=== PATIENT | female | born 1985 | race Caucasian/White ===

== ENCOUNTER 2018-12-03 10:37 | Emergency (ER) | payer MEDICAID ==
[~2018-12-03] VITALS: Ht 157.5 cm; Wt 78.0 kg
[~2018-12-03 10:37] MED LIST: ABILIFY5 MG; BENADRYL25 MG PO; CELEXA10 MG; CEPHALEXIN500 MG PO; IBUPROFEN800 MG PO; KETOROLAC TROME10 MG PO; MINIPRESS1 MG PO; NORCO 5-325 TA1 EACH PO; OXYCODONE-ACET1 EAC1 PO; TYLENOL325 MG PO; VENLAFAXINE H37.5 MG PO; ZANTAC300 MG PO
[2018-12-03] MEDS ORDERED: KEFLEX500 MG PO (13:14)
[2018-12-03] MEDS ORDERED: ONDANSETRON ODT8 MG PO (13:14)
== END 2018-12-03 13:25 | disposition home or self-care (01) ==
LOC: ED 10:37
DX: N10 Acute pyelonephritis (principal); F41.9 Anxiety disorder, unspecified; F32.9 Major depressive disorder, single episode, unspecified; Z87.442 Personal history of urinary calculi; F17.200 Nicotine dependence, unspecified, uncomplicated; Z88.0 Allergy status to penicillin; Z88.2 Allergy status to sulfonamides; Z79.899 Other long term (current) drug therapy; Z87.440 Personal history of urinary (tract) infections
CPT/HCPCS: 76770; 80053; 81001; 85025; 87077; 87088; 87186; 96361; 96365; 96375; 99284-25; J0696; J1885; J2405; J7030

== ENCOUNTER 2019-07-11 11:02 | Emergency (ER) | payer OTHER ==
[~2019-07-11] VITALS: Ht 157.5 cm; Wt 77.6 kg
--- OUTSIDE RECORDS SUMMARY | ~2019-07-11 | XMS | Clinical Summary ---
Demographics + + + | Address | [address] | | | [place] [address] | + + + | Home Phone | | + + + | Preferred Language | Unknown | + + + | Marital Status | | + + + | Christianity Affiliation | Unknown | + + + | Race | Unknown | + + + | Ethnic Group | Unknown | + + + Author + + + | Author | [facility] | | | and [place] | + + + | Organization | [facility] | | | and [place] | + + + | Address | Unknown | + + + | Phone | Unavailable | + + + Support + + + + + | Name | Relationship | Address | Phone | + + + + + | Jojo Clark | ECON | [place] | | | | | [address] | | + + + + + Care Team Providers + +------+ + | Care Reservations Clerk Name | Role | Phone | + +------+ + | Pcp, Prov Inactive | PCP | | + +------+ + Allergies + + + + + + | Active Allergy | Reactions | Severity | Noted | Comments | | | | | Date | | + + + + + + | Latex | Hives | Medium | 10/25/20 | | | | | | 16 | | + + + + + + | Penicillins | Anaphylaxis | High | 07/14/20 | | | | | | 16 | | + + + + + + | Sulfa Antibiotics | Hives | Medium | 07/23/20 | | | | | | 16 | | + + + + + + Medications + + + +---------+------+------+-------+ | Medication | Sig | Dispensed | Refills | Star | End | Statu | | | | | | t | Date | s | | | | | | Date | | | + + + +---------+------+------+-------+ | ibuprofen (ADVIL, | Take 400 mg by mouth | | 0 | | | Activ | | MOTRIN) 200 mg | every 6 hours as | | | | | e | | tablet | needed for Pain. | | | | | | + + + +---------+------+------+-------+ | FIBER PO | Take 2 each by mouth | | 0 | | | Activ | | | Daily. Fiber Well | | | | | e | | | Fit Gummies | | | | | | + + + +---------+------+------+-------+ | | Take 1 tablet by | 20 | 0 | 11/0 | | Activ | | HYDROcodone-acetamin | mouth every 4 hours | tablet | | 8/20 | | e | | ophen (NORCO) 5-325 | as needed. | | | 16 | | | | mg per tablet | | | | | | | + + + +---------+------+------+-------+ Active Problems + + + | Problem | Noted Date | + + + | Ureteral calculus, left | 07/14/2016 | + + + | Sepsis | 07/14/2016 | + + + | Acute cystitis without hematuria | 07/14/2016 | + + + | Acute pyelonephritis | 07/14/2016 | + + + | Hepatitis C | 07/14/2016 | + + + | Smoker | 07/14/2016 | + + + Family History + + +------+ + | Medical History | Relation | Name | Comments | + + +------+ + | Cancer | Maternal | | | | | Grandfath | | | | | er | | | + + +------+ + + +------+ + + | Relation | Name | Status | Comments | + +------+ + + | Father | | Alive | | + +------+ + + | Maternal Grandfather | | | | + +------+ + + | Mother | | Alive | | + +------+ + + Social History + + + [...] + +---------+ + | Alcohol Use | Drinks/We | oz/Week | Comments | | | ek | | | + + +---------+ + | No [...] recent travel history available. | + + Last Filed Vital Signs + + + + | Vital Sign | Reading | Time Taken | + + + + | Blood Pressure | 92/62 | 07/28/2016 1730 PST | + + + + | Pulse | 75 | 07/28/20161729 PST | + + + + | Temperature | 36.9 C (98.4 F) | 07/28/2016 1648 PST | + + + + | Respiratory Rate | 20 | 07/28/20161729 PST | + + + + | Oxygen Saturation | 98% | 07/28/20161729 PST | + + + + | Inhaled Oxygen | - | - | | Concentration | | | + + + + | Weight | 74.4 kg (164 lb) | 07/28/2016 1300 PST | + + + + | Height | 157.5 cm (5' 2") | 07/28/2016 1300 PST | + + + + | Body Mass Index | 30 | 07/28/2016 1300 PST | + + + + Plan of Treatment + + + + + | Health Maintenance | Due Date | Last Done | Comments | + + + + + | Vaccine: | | | | | Dtap/Tdap/Td (1 - | 5 | | | | Tdap) | | | | + + + + + | Cervical Cancer | | | | | Screening (Pap) | 6 | | | + + + + + | Vaccine: Influenza | | | | | (#1) | 9 | | | + + + + + Implants + +-------+--------+ +--------+--------+--------+ | Implanted | Type | Area | Manufacture | Device | Shelf | Model | | | | | r | | Expira | / | | | | | | Identi | tion | Serial | | | | | | fier | Date | / Lot | + +-------+--------+ +--------+--------+--------+ | Stent Uro Unvrs Sft 6fr 26cm | Stent | Left: | MEKHI | | 04/20/ | [id number] | | - [id number]: Qty: 1 | | Ureter | [employer] | | 2018 | / | | on 07/14/2016 by Anastasiia | | | - MEKHI | | | /[id number] | | Mike Sarabia MD | | | | | | 97 | + +-------+--------+ +--------+--------+--------+ Results Not on filefrom Last 3 Months Insurance + +--------+ +--------+ +---------+--------+ | Payer | Benefi | Subscriber | Effect | Phone | Address | Type | | | t Plan | ID | iesha | | | | | | / | | Dates | | | | | | Group | | | | | | + +--------+ +--------+ +---------+--------+ | [employer] | [employer] | [id number] | 07/14/ | [phone] | | Medica | | MEDICAID HMO | HEALTH | | 2016-P | 1 | | id | | | MDCD | | resent | | | | | | [place] | | | | | | + +--------+ +--------+ +---------+--------+ + +--------+ +--------+ + + | Guarantor Name | Accoun | Relation to | Date | Phone | Billing Address | | | t Type | Patient | of | | | | | | | | | | + +--------+ +--------+ + + | Kelsie Altman | Person | Self [birth year] | [address] | | | al/Jose | | 1985 | [phone] | [address] [place] | | | [place] | | | [address] (Home) | [address] | + +--------+ +--------+ + + Advance Directives Patient has advance care planning documents, and code status on file. For more information, please contact:[facility] [place] [address] + + + + + | Code Status | Date | Date | Comments | | | Activated | Inactivated | | + + + + + | Full Code | 07/28/2016 | 07/28/2016 | | | | 17:09 | 20:04 | | + + + + + + + + +---+ | | | | | + + + +---+ | Full Code | 07/14/2016 | 07/16/2016 | | | | 23:13 | 16:59 | | + + + +---+
--- OUTSIDE RECORDS SUMMARY | ~2019-07-11 | XMS | Clinical Summary ---
Demographics + + + | Address | [address] | | | [place] [address] | + + + | Home Phone | | + + + | Preferred Language | Unknown | + + + | Marital Status | | + + + | Bahai Affiliation | Unknown | + + + | Race | Unknown | + + + | Ethnic Group | Unknown | + + + Author + + + | Author | [facility] | | | and [place] | + + + | Organization | [facility] | | | and [place] | + + + | Address | Unknown | + + + | Phone | Unavailable | + + + Support + + + + + | Name | Relationship | Address | Phone | + + + + + | Jojo Clark | ECON | [place] | | | | | [address] | | + + + + + Care Team Providers + +------+ + | Care Paste Maker Name | Role | Phone | + [...] Left: | MEKHI | | 04/20/ | [id number] | | - [id number]: Qty: 1 | | Ureter | [employer] | | 2018 | / | | on 07/14/2016 by Anastasiia | | | - MEKHI | | | /[id number] | | Mike Sarabia MD | | [...] | [employer] | MOD[employer] | [id number] | 07/14/ | [phone] | | Medica | | MEDICAID HMO [...] [place] | | | 9 (Home) | [address] | + +--------+ +--------+ + + Advance Directives Patient has advance care planning documents, and code status on file. For more information, please contact:[facility] [place] [address] + + + + + | Code [...]
[~2019-07-11 11:02] MED LIST changes: +KEFLEX500 MG PO; +ONDANSETRON ODT8 MG PO
[2019-07-11] MEDS ORDERED: VENLAFAXINE HC150 MG PO (11:13)
[2019-07-11] MEDS ORDERED: PRAZOSIN HCL2 MG PO (11:13)
[2019-07-11] MEDS ORDERED: HYDROXYZINE HCL50 MG PO (11:13)
[2019-07-11] MEDS ORDERED: CHLORPROMAZINE50 MG PO (11:14)
[2019-07-11] MEDS ORDERED: NORCO 5-325 TA1 EACH PO (12:40)
== END 2019-07-11 13:25 | disposition home or self-care (01) ==
LOC: ED 11:02
DX: S93.402A Sprain of unspecified ligament of left ankle, initial encounter (principal); F32.9 Major depressive disorder, single episode, unspecified; F41.9 Anxiety disorder, unspecified; F17.200 Nicotine dependence, unspecified, uncomplicated; Z88.0 Allergy status to penicillin; Z88.2 Allergy status to sulfonamides; Z79.899 Other long term (current) drug therapy; X50.1XXA Overexertion from prolonged static or awkward postures, initial encounter
CPT/HCPCS: 73610; 99283

== ENCOUNTER 2019-10-06 07:00 | Emergency (ER) | payer OTHER ==
[~2019-10-06] VITALS: Ht 157.5 cm; Wt 77.6 kg
--- OUTSIDE RECORDS SUMMARY | ~2019-10-06 | XMS | Encounter Summary ---
Demographics + + + | Address | [address] | | | [place] [address] | + + + | Home Phone | | + + + | Preferred Language | Unknown | + + + | Marital Status | | + + + | Taoist Affiliation | Unknown | + + + | Race | Unknown | + + + | Ethnic Group | Unknown | + + + Author + + + | Author | [facility] | | | and [place] | + + + | Organization | [facility] | | | and [place] | + + + | Address | Unknown | + + + | Phone | Unavailable | + + + Support + + + + + | Name | Relationship | Address | Phone | + + + + + | Jojo Clark | ECON | [place] | | | | | [address] | | + + + + + Care Team Providers + +------+ + | Care Securities Clerk Name | Role | Phone | + +------+ + | Carolyn Roca | PCP | | + +------+ + Encounter Details +--------+ + + + + | Date | Type | Department | Care Team | Description | +--------+ + + + + | 07/23/ | Prep for | [facility] | Mike Laurent, | | | 2016 | Procedure | [address] | MD [address] | | | | | [place] | [place] | | | | | [phone] | [address] | | | | | [phone] | | | +--------+ + + + [...] on file | | + + + + + + + | Job Start Date | Occupation | Industry | + + + + | Not on file | Not on file | Not on file | + + + + + + + + | Travel History | Travel Start | Travel End | + + + + + + | No recent travel history available. | + + documented as of this encounter [...] Not on filedocumented as of this encounter Visit Diagnoses Not on filedocumented in this encounter"
--- OUTSIDE RECORDS SUMMARY | ~2019-10-06 | XMS | Encounter Summary ---
Demographics + + + | Address | [address] | | | [place] [address] | + + + | Home Phone | | + + + | Preferred Language | Unknown | + + + | Marital Status | | + + + | Jain Affiliation | Unknown | + + + | Race | Unknown | + + + | Ethnic Group | Unknown | + + + Author + + + | Author | [facility] | | | and [place] | + + + | Organization | [facility] | | | and [place] | + + + | Address | Unknown | + + + | Phone | Unavailable | + + + Support + + + + + | Name | Relationship | Address | Phone | + + + + + | Jojo Clark | ECON | [place] | | | | | [address] | | + + + + + Care Team Providers + +------+ + | Care Industrial Design Engineer Name | Role | Phone | + +------+ + | Carolyn Roca | PCP | | + +------+ + Reason for Referral Evaluate & Treat (Routine) +--------+ + + + + + | Status | Reason | Specialty | Diagnoses / | Referred By | Referred To | | | | | Procedures | Contact | Contact | +--------+ + + + + + | Closed | Specialty | Urology | Diagnoses | Anastasiia, | [place], | | | Services | | Left | Mike Sarabia MD | Mike Sarabia MD | | | Required | | ureteral | [address] | | | | | calculus | AVE [place] | [place] | | | | | Procedures | [place] | [place] | | | | | [place] | [address] | [address] Phone: | | | | | CYSTO/URETER | Phone: | [phone] | | | | | O/PYELOSCOPY | [phone] | Fax: | | | | | , CALCULUS | Fax: | [phone] | | | | | [place] | [phone] | | | | | | CYSTOSCOPY,I | | | | | | | NSERT | | | | | | | URETERAL | | | | | | | STENT | | | +--------+ + + + + + Reason for Visit + + + | Reason | Comments | + + + | Nephrolithiasis | | + + + Evaluate & Treat (Routine) +--------+--------+ + + + + | Status | Reason | Specialty | Diagnoses / | Referred By | Referred To | | | | | Procedures | Contact | Contact | +--------+--------+ + + + + | Closed | | Urology | Diagnoses | Abelino, | Anastasiia, | | | | | Calculus of | Carolyn Dong, | Mike Sarabia MD | | | | | ureter | TILE [employer]CH[employer]IC [employer] [address] | [address] | | | | | Unspecified | [address] | [place] | | | | | abdominal | [place], | [place], [place] | | | | | pain PRE-OP | [place] [address] | [address] Phone: | | | | | Procedures | Phone: | [phone] | | | | | OFFICE | [phone] | Fax: | | | | | VISIT | Fax: | [phone] | | | | | EXTENDED | [phone] | | +--------+--------+ + + + + Encounter Details +--------+---------+ + + + | Date | Type | Department | Care Team | Description | +--------+---------+ + + + | 07/23/ | Office | [facility] | Mike Laurent, | Left ureteral | | 2016 | Visit | [address] | MD [address] | calculus (Primary | | | | [place], [place] | [place] | Dx); Hepatitis C | | | | [address] | [address] | virus infection, | | | | [phone] | | unspecified | | | | | | chronicity; Kidney | | | | | | stones; | | | | | | Pre-operative | | | | | | clearance | +--------+---------+ + + + Social History + +-------+ [...] + + documented as of this encounter Last Filed Vital Signs + + + + + | Vital Sign | Reading | Time Taken | Comments | + + + + + | Blood Pressure | 112/68 | 07/23/2016 9:40 AM | | | | | PDT | | + + + + + | Pulse | 80 | 07/23/2016 9:40 AM | | | | | PDT | | + + + + + | Temperature | - | - | | + + + + + | Respiratory Rate | 16 | 07/23/2016 9:40 AM | | | | | PDT | | + + + + + | Oxygen Saturation | - | - | | + + + + + | Inhaled Oxygen | - | - | | | Concentration | | | | + + + + + | Weight | 74.7 kg (164 lb 11.2 | 07/23/2016 9:40 AM | | | | oz) | PDT | | + + + + + | Height | 157.5 cm (5' 2") | 07/23/2016 9:40 AM | | | | | PDT | | + + + + + | Body Mass Index | 30.12 | 07/23/2016 9:40 AM | | | | | PDT | | + + + + + documented in this encounter Functional Status + + + [...] + + documented as of this encounter Patient Instructions Patient Instructions Anna Mayorga RN - 07/23/2016 10:27 AM PDTPreoperative Instructi ons Your surgery with Dr. Mike Laurent has been scheduled for July 29, 2016 at 2:30 PM at [facility]. [facility] no later than 1:00 PM. REMEMBER: NOTHING TO EAT OR DRINK AFTER MIDNIGHT July 28, 2016. NO ASPIRIN OR ASPIRIN PRODUCTS ONE WEEK PRIOR TO SURGERY. Tylenol and Advil are OK. You will need to get the following testing done prior to surgery: CBC, CMP, URIC ACID, UA, PT/INR, PTT, LIVER PANEL Call us at [phone] with any questions. [x] Pain management booklet provided to patient. Kidney Stones A kidney stone (nephrolithiasis) begins as tiny crystals that form inside the kidney where urine is made. Eighty percent of kidney stones are calcium stones mostly calcium oxalate but also some with calcium phosphate. Other types include uric acid stones, struvite stones (from a preceding infection), and cystine stones. When the stone breaks free and begins to move down the ureter (the narrow tube joining the kidney to the bladder) it often causes sharp back and side pain, often with nausea and vomit ing. When the stone reaches the bladder, the pain stops. Once in your bladder, the kidney st one may pass through the urethra (urinary opening) while you are urinating. If your kidney stone is still inside the kidney, there is no way to predict how long it ilsa l be before it breaks free and causes any symptoms, but it usually does not cause any pain w hile it is inside the kidney. Most stones will pass on their own within a few days or up to 3-4 weeks.You may notice a red, pink, or brown color to your urine. This is normal while p assing a kidney stone. A large stone may not pass on its own and may require special procedu res to remove it. These procedures include lithotripsy, which uses ultrasound-like waves to break up the stone; and ureteroscopy, which pushes a thin, basket-like instrument through th e urethra and bladder and into the ureter to pull out the stone. Home care The following guidelines will help you care for yourself at home: 1. Drink plenty of fluids. This increases urine flow and reduces the risk of further stone formation. Healthy adults (no heart/liver/kidney disease) who have had a kidney stone should drink 12, 8-ounce glasses of fluids per day. Most of this should be water. The goal is to p roduce 1.5 to 2 quarts of almost colorless urine per 24 hours. 2. You should collect your urine in a container and then drain it through a strainer to col lect any stones or pieces of stones. Take these to your doctor to help identify your specifi c type of stone to aid in future treatment and dietary changes. 3. Try to stay as active as possible since this will help the stone pass. Don't stay in bed unless you have pain that prevents you from getting up. 4. If you develop pain, you may take ibuprofen or naproxen for pain, unless another medicin e was prescribed. [NOTE: If you have chronic liver or kidney disease or ever had a stomach u lcer or GI bleeding, talk with your doctor before using these medicines.] Prevention Each year, there is a 5% to 10% chance that a new stone will form (50% chance over the next 5 to 7 years).The risk is higher if you have a family history of kidney stones or have ce rtain chronic illnesses such as hypertension, obesity, or diabetes.However, there are life style and dietary changes that you canmake to reduce the risk of a recurrence. Most kidney stones are made of calcium. The following is advice for preventing a recurrence of calcium stones. If you don t know the type of stone you have, follow this advice unt il the cause of your stone is determined. Things that help: The most important thing you can do is to drink plenty of fluids each day, as described above (#1). Eat more fruits and vegetables (especially those high in potassium). Eat foods high in natural citrate like fruit and fruit juices (using low sugar). Low calcium contributes to the formation of calcium type kidney stones. Eat a normal shekhar cium diet and speak with your doctor if you are taking calcium supplements. It may be detrim ental to reduce your calcium intake. New research shows that eating calcium-rich and oxalate -rich foods together lowers your risk of stones by binding the minerals in the stomach and i ntestines before they can reach the kidneys. Limit salt intake to 2 grams (1 teaspoon) per day. Use limited amounts when cooking, and don t add salt at the table. Processed and canned foods are usually high in salt. Spinach, rhubarb, peanuts, cashews and almonds, grapefruit and grapefruit juice are all high oxalate foods and should be reduced, or eaten with calcium rich foods (dairy, dark leaf y greens, soy products, and calcium enriched foods, among others). Reducing the amount of animal meat in your diet may lower your risk of uric acid stones. Avoid excess sugar (sucrose) and fructose (sweetener in many soft drinks) in your diet. Avoid use of Vitamin C supplements. Drink lots of water to keep urine dilute at all times. Ideally, you should drink enough water to produce 2 liters of urine every day. A low sodium, low fat, low oxalate, low animal protein diet is helpful. Also increase ci trate intake, as citrate is a stone inhibitor. Citrate can be found in carlota, oranges, pine apple, and grapefruit. Ask your primary care provider if grapefruit consumption is OK for yo u, as this particular citrus fruit may interact with some medications. Magnesiuim is also a stone inhibitor, and may help reduce the risks of kidney stones. Follow-up care Follow up with your doctor as advised by our staff. Talk to your doctor about urine and blo od tests to find out the cause of your stone. If you had an X-ray, CT scan, or other diagnostic test, it will be reviewed by a specialist . You will be notified of any new findings that may affect your care. When to seek medical care Get prompt medical attention if any of the following occur: Severe sharp back or side pain Repeated vomiting or unable to keep down fluids Weakness, dizziness, or fainting Fever of 100.4F (38C) or higher, or as directed by your health care provider Blood (pink or red color) in your urine Foul smelling or cloudy urine Unable to pass urine for 8 hours or increasing bladder pressure [id number] [employer]. [address] [place] [address]. All righ ts reserved. This information is not intended as a substitute for professional medical care. Always follow your healthcare professional's instructions. documented in this encounter Progress Notes Mike Laurent MD - 07/23/2016 9:44 AM PDTFormatting of this note might be different fro m the original. Kelsie is a 31 y.o. female patient of [facility] being seen today for follow up for kidney stones. CC: 3-4 mm distal left ureteral calculus Kelsie presented to the emergency department at [facility] on 07/14/2016 with a 3 to four-day history of left back and flank pain associated with fevers to 102. CT imagin g at [facility] suggested a "distal left ureteral 3-4 mm stone with mild left hydronephro sis, mild pyelosinus and periureteral edema." She appeared septic at [facility] , so she was transferred to [facility] on 07/14/2016 where she under went urgent left ureteral stent placement on 07/14/2016. She was treated with IV antibiotic therapy, and she had near immediate pain relief with julia nt placement. Urine culture grew E. coli, sensitive to quinolones, resistant to Septra, tet racycline, and ampicillin. She will finish her outpatient Cipro antibiotic today. She denies having any recurrence of fevers. She states that overall she still feels "reall y good" except that she does notice left back and flank discomfort when voiding. She's had 2 episodes of hematuria. She denies any dysuria. She denies any fever or chills or nausea or vomiting. She denies any cough or chest pain o r shortness breath or hemoptysis. She denies any recent cold or flulike illness. She denies any hematochezia or melena or co nstipation or diarrhea. She denies any vaginal drainage or discharge or bleeding. She denies any bleeding diasthes is. She denies any headache or visual changes. Other than her flank pain with voiding, 10 point review of systems is negative. Over 30 minute encounter with Kelsie and her mother today, over 50% of this time spent in cou nseling regarding treatment of her nephrolithiasis and ureterolithiasis, and dietary recomme ndations to reduce her risk of stone disease. Past Medical History She has a past medical history of Kidney calculi; Anxiety; PTSD (post-traumatic stress diso rder); Hepatitis C; Anxiety and depression; and History of chlamydia. Past Surgical History She has past surgical history that includes hernia repair (2014); Cholecystectomy (2006); T ubal ligation; and Cystoscopy Insertion/Removal Stent/Stone (Left, 07/14/2016). Family History: Her family history includes Cancer in her maternal grandfather. Social History: She reports that she has been smoking. She does not have any smokeless tobacco history on file. She reports that she uses illicit drugs (Marijuana). She reports that she does not dri nk alcohol. Allergies Allergen Reactions Penicillins Anaphylaxis Latex Hives Medications: Outpatient Encounter Prescriptions as of 07/23/2016 Medication Sig Dispense Refill [DISCONTINUED] ciprofloxacin (CIPRO) 250 mg tablet Take 1 tablet by mouth 2 times daily for 7 days. 14 tablet 0 [DISCONTINUED] HYDROcodone-acetaminophen (NORCO) 5-325 mg per tablet Take 1 tablet by m outh every 6 hours as needed for Pain (Pain). 15 tablet 0 No facility-administered encounter medications on file as of 07/23/2016. REVIEW OF SYSTEMS: [x] All Negative Constitutional Symptoms: []Fever []Chills []Headache []Change in appetite [] Change in weight [] Change in energy []Other: Neurological: []Tremors []Dizzy Spells []Numbness/Tingling []Seizures []Other: Endocrine: []Excessive thirst []Too hot [] Too cold []Tired/Sluggish Gastrointestinal: []Abdominal pain []Nausea/vomiting []Indigestion/heartburn []Change in stool size [] Myrick e in stool shape [] Change in stool color []Pain with swallowing []Other: Cardiovascular: []Chest Pain []Rapid heart rate []High blood pressure []Other: Integumentary: []Skin rash []Boils []Persistent itch []Other: Musculoskeletal: []Neck Pain []Joint swelling/pain []Back pain []Bone pain []Other: Respiratory: []Wheezing []Frequent cough []Shortness of breath []Other: Hematologic/Lymphatic: []Swollen glands []Blood clotting problems []Prior blood transfusions []Other: Psychologic: Are you generally satisfied with your life? no Do you feel severely depressed? no Have you considered suicide? no Other: Habits: Do you smoke? yes [x] Yes [] No Patient advised to follow up with PCP regarding positive review of syste ms. PHYSICAL EXAM Vitals: BP 112/68 mmHg | Pulse 80 | Resp 16 | Ht 1.575 m (5' 2") | Wt 74.707 kg (164 lb 11. 2 oz) | BMI 30.12 kg/m2 | LMP 06/16/2016 (Approximate) General: Awake, alert, in no acute distress. Speech is fluent. Appears to be stated age. Overweight. Cheerful. Neck: Supple; no lymphadenopathy. HENT: Atraumatic, external ears normal, nose normal, oropharynx moist, no pharyngeal exudat es. Hair dyed blue-green in color. Lungs: Normal respiratory effort, no wheezing, no stridor, no tachypnea. Clear to auscult ation bilaterally. Heart: Normal rate, normal rhythm, no murmurs, no gallops, no rubs. Chest: No rib or bony tenderness. Back: Mild left CVA tenderness. Abdomen: Soft, nontender, nondistended, no hepatosplenomegaly. No masses. Umbilical pierc ing present. No guarding; benign. Bladder nondistended. Mild left flank tenderness. Extremities: Non-edematous. Hips and long bones nontender to fist percussion. Neuro: Awake, alert, oriented x3. Normal station and gait. Psychiatric: Mood and affect are normal. Normal judgment. Skin: Warm and dry, no erythematous rash. DIAGNOSTIC DATA: Lab Results Component Value Date CREA 0.69 07/15/2016 BUN 12 07/15/2016 NA 137 07/15/2016 K 3.8 07/15/2016 CL 109 07/15/2016 CO2 22* 07/15/2016 Lab Results Component Value Date WBC 5.4 07/15/2016 HGB 12.8 07/15/2016 HCT 37.2 07/15/2016 MCV 87.0 07/15/2016 PLT 213 07/15/2016 Lab Results Component Value Date CALCIUM 8.6 07/15/2016 SUPINE ABDOMEN: 07/23/2016 8:27 AM CLINICAL HISTORY: Left ureteral calculus COMPARISON: CT abdomen 07/14/2016 FINDINGS: Left ureteral stent is present extending from left renal pelvis to bladder. No high density foci over the left kidney or course of the stent. No right-sided stones suggested. Small phleboliths on the right side of the pelvis. Stable linear metallic density projecting over the upper sacrum, previously shown to be in the anterior abdominal skin. Cholecystectomy clips are also noted. Intestinal gas and stool pattern is normal. No bony abnormalities. IMPRESSION - Satisfactory position left ureteral stent. No radiopaque renal collecting system stones. Dictated and Signed by: Jared Roca MD Electronically signed: 07/23/2016 (Images personally reviewed with the patient today) IMPRESSION: 1. 3-4 mm distal left ureteral calculus. 2. Recent urosepsis. Resolved. 3. Mild left hydronephrosis. 4. 2-3 mm left renal calculus. PLAN: I showed Kelsie her x-ray images. I told her that her distal left ureteral calculus is diffi cult to discern on her CT, and I can't be 100% certain that she has a stone, since I can't v isualize it on her current KUB. However, we also discussed that a uric acid stone would not be visible on plain x-ray imaging. Nevertheless, I told her that she needs to undergo uret eroscopy to remove any remaining stone material in her left ureter. I gave Kelsie a pamphlet describing kidney stones and the various treatment options available , which we reviewed together. We discussed performing ESWL (not available in the near futur e) vs ureteroscopy with laser lithotripsy vs PCNL (not recommended) vs seeking a second opin ion vs doing nothing. After a lengthy discussion, she elects to proceed with left ureteroscopy with stone extract ion. The risks, benefits, and alternatives of cystoscopy, and left ureteroscopy with stone extra ction, and possible left ureteral stent replacement are discussed with Kelsie in detail. I t old her that this procedure may not render her stone free, necessitating additional procedur es in the future. We discussed that if her stone is too big to extract, she may need to und ergo laser lithotripsy. Risks are to include, but are not limited to bleeding, pain, infection, failure of the proc edure, inability to retrieve or remove or fragment the stone, failure to diagnose, ureteral injury, ureteral perforation, ureteral avulsion with its severe sequelae of damage to the ki dney or need for subsequent surgical corrective procedures, potential need for additional pr ocedures, inherent irritability and discomfort associated with a ureteral stent, inherent ri sks of any surgical procedure and anesthesia including DVT, PE, UT, CVA, and even . Kelsie indicates her understanding, and indicates a desire to proceed as outlined. No guaran tees are given or implied. A surgical date is chosen. Kelsie is given appropriate written and verbal preoperative instru ctions. Elements of a kidney stone risk reduction diet are reviewed with Kelsie in detail. I recomme nded that she increase water intake to target a urinary output of 2 L per day. I gave Kelsie a list of foods containing oxalates, and I recommended a low oxalate diet, with instructions to minimize oxalate consumption to 40-50 mg per day. I also recommended a low sodium, low animal protein, low fat, high citrate diet. We discussed that her left renal stone will need monitoring with her PCP. It is small enou gh that I cannot visualize it on her KUB today. Kelsie is instructed to resume her usual and customary care with her primary care provider. I asked Kelsie to notify me if there were any difficulties voiding, or UTI symptoms, or flank pain, or for any questions or concerns whatsoever. This document was generated in part using voice recognition software. Although I have atte mpted to edit the content, I have not thoroughly proofread this note, and first line supervisor erro rs may occur. CC: [facility] documented in this en counter Plan of Treatment + +------+--------+ + + | Name | Type | Priori | Associated Diagnoses | Order Schedule | | | | ty | | | + +------+--------+ + + | CBC with | Lab | Routin | Left ureteral | 1 Occurrences | | Differential | | e | calculus | starting 07/23/2016 | | | | | | until 07/23/2017 | + +------+--------+ + + | Comprehensive | Lab | Routin | Left ureteral | 1 Occurrences | | Metabolic Panel | | e | calculus | starting 07/23/2016 | | | | | | until 07/24/2017 | + +------+--------+ + + | Uric Acid | Lab | Routin | Left ureteral | 1 Occurrences | | | | e | calculus | starting 07/23/2016 | | | | | | until 07/23/2017 | + +------+--------+ + + | Urinalysis, Reflex | Lab | Routin | Left ureteral | 1 Occurrences | | Microscopic and/or | | e | calculus | starting 07/23/2016 | | Culture | | | | until 07/23/2017 | + +------+--------+ + + | Protime INR | Lab | Routin | Pre-operative | 1 Occurrences | | | | e | clearance | starting 07/23/2016 | | | | | | until 07/23/2017 | + +------+--------+ + + | PTT | Lab | Routin | Pre-operative | 1 Occurrences | | | | e | clearance | starting 07/23/2016 | | | | | | until 07/23/2017 | + +------+--------+ + + | Hepatic Function | Lab | Routin | Hepatitis C virus | 1 Occurrences | | Panel | | e | infection, | starting 07/23/2016 | | | | | unspecified | until 07/23/2017 | | | | | chronicity | | + +------+--------+ + + + + +--------+ + + | Name | Type | Priori | Associated Diagnoses | Order Schedule | | | | ty | | | + + +--------+ + + | Ambulatory referral | Outpatient | Routin | Left ureteral | Expected: | | to Urology | Referral | e | calculus | 07/29/2016, Expires: | | | | | | 08/05/2016 | + + +--------+ + + documented as of this encounter Procedures + +--------+ + + + | Procedure Name | Priori | Date/Time | Associated Diagnosis | Comments | | | ty | | | | + +--------+ + + + | LABS - EXTERNAL SCAN | | 07/27/2016 | | Results for this | | | | 12:00 AM | | procedure are in the | | | | PST | | results section. | + +--------+ + + + documented in this encounter Results LABS - EXTERNAL SCAN (07/27/2016 12:00 AM PST) + + + | Narrative | Performed At | + + + | Ordered by an | | | unspecified provider. | | + + + documented in this encounter Visit Diagnoses + + | Diagnosis | + + | Left ureteral calculus - Primary Calculus of ureter | + + | Hepatitis C virus infection, unspecified chronicity | + + | Kidney stones Calculus of kidney | + + | Pre-operative clearance Preoperative examination, unspecified | + + documented in this encounter
--- OUTSIDE RECORDS SUMMARY | ~2019-10-06 | XMS | Encounter Summary ---
Demographics + + + | Address | [address] | | | [place] [address] | + + + | Home Phone | | + + + | Preferred Language | Unknown | + + + | Marital Status | | + + + | Jew Affiliation | Unknown | + + + | Race | Unknown | + + + | Ethnic Group | Unknown | + + + Author + + + | Author | [facility] | | | and [place] | + + + | Organization | [facility] | | | and [place] | + + + | Address | Unknown | + + + | Phone | Unavailable | + + + Support + + + + + | Name | Relationship | Address | Phone | + + + + + | Jojo Clark | [place] | [place] | | | | | [address] | | + + + + + Care Team Providers + +------+ + | Care Group Leader [employer] Name | Role | Phone | + +------+ + | No, Physician | PCP | Unavailable | + +------+ + Reason for Visit + + + | Reason | Comments | + + + | Flank Pain | | + + + Auth/Cert +--------+--------+ + + + + | Status | Reason | Specialty | Diagnoses / | Referred By | Referred To | | | | | Procedures | Contact | Contact | +--------+--------+ + + + + | | | | Diagnoses | | | | | | | | | | | | | | Ureterolithi | | | | | | | asis Acute | | | | | | | abdominal | | | | | | | pain in left | | | | | | | flank | | | | | | | Urinary | | | | | | | tract | | | | | | | infection, | | | | | | | site | | | | | | | unspecified | | | | | | | Left | | | | | | | ureteral | | | | | | | stone | | | | | | | Intractable | | | | | | | left upper | | | | | | | quadrant | | | | | | | abdominal | | | | | | | pain | | | | | | | Left | | | | | | | ureteral | | | | | | | stone | | | | | | | [N20.1], | | | | | | | Urinary | | | | | | | tract | | | | | | | infection, | | | | | | | site | | | | | | | unspecified | | | | | | | [N39.0] | | | | | | | Procedures | | | | | | | TX | | | | | | | CYSTOSCOPY,I | | | | | | | NSERT | | | | | | | URETERAL | | | | | | | STENT | | | | | | | CYSTOSCOPY | | | | | | | PLACEMENT | | | | | | | URETERAL | | | | | | | STENT | | | +--------+--------+ + + + + Encounter Details +--------+ + + + + | Date | Type | Department | Care Team | Description | +--------+ + + + + | 07/14/ | Hospital | [facility] | Bud, | Acute abdominal pain | | 2016 - | Encounter | [facility] SUR[facility] | Scott Sarabia MD [address] | in left flank | | | | [address] [place] | [address] [place] | (Primary Dx); | | 07/16/ | | [place] [address] | [place] [address] | Ureterolithiasis; | | 2015 | | [phone] | [phone] | Intractable left | | | | | | upper quadrant | | | | | Blake Moreno S, | abdominal pain; | | | | | [address] | Acute | | | | | [place], [place] | pyelonephritis; | | | | | [id number] [address] Laurent | Sepsis, due to | | | | | MD [place] [address] | unspecified organism | | | | | [address] [place], [place] | ([facility]); Ureteral | | | | | [id number] | calculus, left | | | | | | | +--------+ + + + [...] + + + | Blood Pressure | 111/62 | 07/16/2016 7:47 AM | | | | | PDT | | + + + + + | Pulse | 56 | 07/16/2016 7:47 AM | | | | | PDT | | + + + + + | Temperature | 35.9 C (96.6 F) | 07/16/2016 7:47 AM | | | | | PDT | | + + + + + | Respiratory Rate | 16 | 07/16/2016 7:47 AM | | | | | PDT | | + + + + + | Oxygen Saturation | 97% | 07/16/2016 7:47 AM | | | | | PDT | | + + + + + | Inhaled Oxygen | - | - | | | Concentration | | | | + + + + + | Weight | 77.6 kg (171 lb) | 07/14/2016 6:16 PM | | | | | PDT | | + + + + + | Height | 157.5 cm (5' 2") | 07/14/2016 6:16 PM | | | | | PDT | | + + + + + | Body Mass Index | 31.28 | 07/14/2016 6:16 PM | | | | | PDT | [...] + + documented as of this encounter Discharge Summaries Mike Laurent MD - 07/16/2016 8:13 AM PDTFormatting of this note might be different fro m the original. [facility] Urology Discharge Summary Patient Name: Kelsie Altman Patient : 1985 Admitting Physician: Mike Laurent MD PCP: No Physician on file Discharging Physician: Mike Laurent Consultants: None Date of Admission: 07/14/2016 Date of Discharge: 07/16/2016 Primary Discharge Dx: Sepsis Secondary Discharge Dx(s): Patient Active Problem List Diagnosis Ureteral calculus, left Sepsis Acute cystitis without hematuria Acute pyelonephritis Hepatitis C Smoker Procedures: Left ureteral stent placement 07/14/2016 Hospital Course: Kelsie was taken urgently to the operating room on 07/14/2016 for stent placement for an obst ructing left ureteral calculus associated with urinary tract infection. She had marked improvement in symptoms by postop day #1. Additionally, by postop day #1, s he became afebrile with normalization of vital signs. She continued with intravenous Cipro. Urine cultures returned demonstrating E. coli, sensi tive to quinolones. By postop day #2, she had remained afebrile for greater than 24 hours, and was having no re nal colic, and was tolerating a regular diet well, and was deemed stable for discharge home. Condition on Discharge: Stable Discharge Medications: Discharge Medications New Medications Details ciprofloxacin 250 mg tablet Take 1 tablet by mouth 2 times daily for 7 days. aka: CIPRO HYDROcodone-acetaminophen 5-325 mg per tablet Take 1 tablet by mouth every 6 hours as needed for Pain (Pain). aka: NORCO Medications Reconciled upon Discharge are: Discharge Medications New Medications Details ciprofloxacin 250 mg tablet Take 1 tablet by mouth 2 times daily for 7 days. aka: CIPRO HYDROcodone-acetaminophen 5-325 mg per tablet Take 1 tablet by mouth every 6 hours as needed for Pain (Pain). aka: NORCO There is no immunization history on file for this patient. Follow-Up: 1. Urology Dr. Laurent in 1 weeks. 2. Encouraged to establish with PCP Instructions: 1. Diet: Regular 2. Activity: As tolerated Code Status/Advance Directive (Pertinent discussions/declarations): Full Code documented in this en counter Discharge Instructions Instructions Mike Laurent MD - 07/16/2016DISCHARGE INSTRUCTIONS URINARY TRACT SURGERY including: Ureteral stent placement Activity: As tolerated. Walk frequently as tolerated. Gradually return to normal activities as t olerated. Best to avoid intercourse for 5-7 days. Preferable to avoid heavy lifting or straining for 5-7 days. Diet: Clear liquids until nausea passes, then return to normal diet as tolerated. Fluids are encouraged to help flush blood out of your urinary tract. Drink 8 glasses of fluid a day until urine is free of blood. Pain pills can cause constipation. Use a laxative of your choice if necessary. Pain and Comfort: Bloody urine is common and will generally clear up within several days, but can last janet jere. Slight burning on urination may occur. Urinary urgency and frequency is also not unusua l after this type of surgery. Use pain medication as directed. Take ibuprofen for less severe pain. Additional Instructions: You may shower at any time. Follow up: Call Dr Laurent's office ([phone]) to set up your follow-up appointment or other arr angements as appropriate. Call YOUR UROLOGIST'S office for: Unremitting very heavy bright red bleeding and/or large volume of clots when urinating, that is worsening despite rest and pushing oral fluids. Inability to urinate. Elevated fever over 101 F. Frequent unremitting nausea/vomiting. Severe pain not relieved by rest or prescribed pain medication. If you are unable to reach your doctor at the above number, call the answering service at (after hours and weekends). If you have received sedation / an anesthetic today, DO NOT drive a vehicle, use alcoholic beverages, sign legal documents, take public transportation alone or care for a dependent pe rson for the next 24 hours. Also, you should not drive until you are off of all narcotic pa in medications and can move your legs easily without pain. Kidney Stones A kidney stone (nephrolithiasis) begins [...] for 8 hours or increasing bladder pressure [id number] [employer]. [address] [place] [address]. All righ ts reserved. This information is not intended as a substitute for professional medical care. Always follow your healthcare professional's instructions. documented in this encounter Medications at Time of Discharge + + + +---------+ + + | Medication | Sig | Dispensed | Refills | Start | End Date | | | | | | Date | | + + + +---------+ + + | ciprofloxacin | Take 1 tablet by | 14 | 0 | 07/16/20 | | | (CIPRO) 250 mg | mouth 2 times daily | tablet | | 16 | 6 | | tablet | for 7 days. | | | | | + + + +---------+ + + | | Take 1 tablet by | 15 | 0 | 07/16/20 | | | HYDROcodone-acetamin | mouth every 6 hours | tablet | | 16 | 6 | | ophen (NORCO) 5-325 | as needed for Pain | | | | | | mg per tablet | (Pain). | | | | | + + + +---------+ + + documented as of this encounter Progress Notes Mike Laurent MD - 07/16/2016 7:58 AM PDTFormatting of this note might be different fro m the original. Urology follow up S: No pain. Voiding well. Wants to go home. No N/V. No renal colic. No SOB. No dizzi ness or lightheadedness. BP 111/62 mmHg | Pulse 56 | Temp(Src) 35.9 C (96.6 F) (Oral) | Resp 16 | Ht 1.575 m (5' 2") | Wt 77.565 kg (171 lb) | BMI 31.27 kg/m2 | SpO2 97% | LMP 06/16/2016 (Approximate) | B reastfeeding? No General: Awake, alert, in no acute distress. Speech is fluent. Cheerful, smiles readily. Lungs: Normal respiratory effort, no wheezing, no stridor, no tachypnea. Back: No CVA tenderness. Abdomen: Soft, nontender, nondistended. No guarding; benign. Bladder nondistended. Extremities: Non-edematous. Warm, perfused. Neuro: Awake, alert, oriented x3. Psychiatric: Mood and affect are normal. Normal judgment. Skin: Warm and dry, no erythematous rash. DIAGNOSTIC DATA: Lab Results Component Value Date CREA 0.69 07/15/2016 BUN 12 07/15/2016 NA 137 07/15/2016 K 3.8 07/15/2016 CL 109 07/15/2016 CO2 22* 07/15/2016 Lab Results Component Value Date WBC 5.4 07/15/2016 HGB 12.8 07/15/2016 HCT 37.2 07/15/2016 MCV 87.0 07/15/2016 PLT 213 07/15/2016 Urine culture - e.coli, nearly manriquez-sensitive. Resistant to Septra, TCN, and ampicillin. S ensitive to quinolones, cefazolin, nitrofurantoin, et al. Impression: POD # 2 - doing well Fever - resolved Sepsis - resolved Pyelonephritis Renal colic - resolved Plan: Discharge home Discharge instructions given RTC precautions discussed. Reminded patient that stent must be removed. Instructed to follow up in about a week to arrange for stone and stent removal Dietary measures to reduce risk of stones reviewed. Will need left ureteroscopy with stone extraction in the near future. Alice Branham RRT - 07/15/2016 6:16 PM PDTPt is a little unmotivated to move around Mike Rausch MD - 07/15/2016 8:01 AM PDT . Urology follow up S: Feels much better. Still having some discomfort, but pain markedly improved. No other complaints. BP 103/56 mmHg | Pulse 77 | Temp(Src) 36.2 C (97.2 F) (Oral) | Resp 17 | Ht 1.575 m (5' 2") | Wt 77.565 kg (171 lb) | BMI 31.27 kg/m2 | SpO2 96% | LMP 06/16/2016 (Approximate) | B reastfeeding? No General: Awake, alert, in no acute distress. Speech is fluent. Appears to be comfortable. Lungs: Normal respiratory effort, no wheezing, no stridor, no tachypnea. Back: Mild left CVA tenderness. Abdomen: Soft, nondistended, no hepatosplenomegaly, mild left flank tenderness. No masses. No guarding; benign. Bladder nondistended. Extremities: Non-edematous. Warm, perfused. Neuro: Awake, alert, oriented x3. Psychiatric: Mood and affect are normal. Normal judgment. Skin: Warm and dry, no erythematous rash. DIAGNOSTIC DATA: Lab Results Component Value Date CREA 0.69 07/15/2016 BUN 12 07/15/2016 NA 137 07/15/2016 K 3.8 07/15/2016 CL 109 07/15/2016 CO2 22* 07/15/2016 Lab Results Component Value Date WBC 5.4 07/15/2016 HGB 12.8 07/15/2016 HCT 37.2 07/15/2016 MCV 87.0 07/15/2016 PLT 213 07/15/2016 Impression: POD # 1 - stable Sepsis - improving and stable Renal colic - much improved UTI/pyelonephritis Fever Plan: Continue IV fluids Continue IV antibiotics Analgesics documented in this en counter Plan of Treatment Not on filedocumented as of this encounter Procedures + +--------+ + + + | Procedure Name | Priori | Date/Time | Associated Diagnosis | Comments | | | ty | | | | + +--------+ + + + | CT ABDOMEN PELVIS WO | Routin | 09/13/2016 | | Results for this | | CONTRAST | e | 2:55 PM | | procedure are in the | | | | PST | | results section. | + +--------+ + + + | CBC WITH | Routin | 07/15/2016 | | Results for this | | DIFFERENTIAL | e | 6:09 AM | | procedure are in the | | | | PDT | | results section. | + +--------+ + + + | BASIC METABOLIC | Routin | 07/15/2016 | | Results for this | | PANEL | e | 6:09 AM | | procedure are in the | | | | PDT | | results section. | + +--------+ + + + | CYSTOSCOPY PLACEMENT | | 07/14/2016 | Left ureteral | | | URETERAL STENT | | 9:19 PM | stone Urinary tract | | | | | PDT | infection, site | | | | | | unspecified | | + +--------+ + + + +---+--------+ | | | | | Specia | | | l | | | Needs | | | C-Arm | +---+--------+ + +--------+ +---+ + | IMAGING REPORT - | | 07/14/2016 | | Results for this | | EXTERNAL SCAN | | 12:00 AM | | procedure are in the | | | | PDT | | results section. | + +--------+ +---+ + | LABS - EXTERNAL SCAN | | 07/14/2016 | | Results for this | | | | 12:00 AM | | procedure are in the | | | | PDT | | results section. | + +--------+ +---+ + | LABS - EXTERNAL SCAN | | 07/14/2016 | | Results for this | | | | 12:00 AM | | procedure are in the | | | | PDT | | results section. | + +--------+ +---+ + | CT ABDOMEN PELVIS WO | Routin | 08/23/2015 | | Results for this | | CONTRAST | e | 6:35 AM | | procedure are in the | | | | PST | | results section. | + +--------+ +---+ + documented in this encounter Results CT Abdomen Pelvis wo Contrast (09/13/2016 2:55 PM PST) + + | Specimen | + + | | + + + + + | Narrative | Performed At | + + + | External films for comparison only - no result from [facility]. | [facility] | + + + + +---------+ + + | Performing | Address | City/State/Zipcode | Phone Number | | Organization | | | | + +---------+ + + | [facility] | | | | + +---------+ + + CBC with Differential (07/15/2016 6:09 AM PDT) + + + + + + | Component | Value | Ref Range | Performed | Pathologist | | | | | At | Signature | + + + + + + | WBC | 5.4 | 4.0 - 11.0 K/uL | [facility] | | | | | | [facility] | | | | [facility] | | | [facility] | | | | | | [facility] | | + + + + + + | RBC | 4.28 | 3.70 - 5.20 | [facility] | | | | | M/uL | [facility] | | | | | | [facility] | | | | | | [facility] - | | | | | | [facility]ATORY | | + + + + + + | Hemoglobin | 12.8 | 11.5 - 16.0 | [facility] | | | | | g/dL | [facility] | | | | | | [facility] | | | | | [facility] - | | | | | | [facility]ATORY | | + + + + + + | Hematocrit | 37.2 | 34.0 - 47.0 % | [facility] | | | | | | [facility] | | [facility] | [facility] | | | | [facility] | | | | | | [facility] | | + + + + + + | MCV | 87.0 | 83.0 - 101.0 fL | [facility] | | | | | | [facility] | | | | | [facility] | | | | [facility] | | | | | | [facility] | | + + + + + + | MCH | 29.8 | 28.0 - 35.0 pg | [facility] | | | | | | [facility] | | | | | | [facility] | | | | | [facility] - | | | | | | [facility] | | + + + + + + | MCHC | 34.3 | 32.0 - 36.0 | [facility] | | | | | g/dL | [facility] | | | | | | [facility] | | | | [facility] - | | | | | | [facility]ATORY | | + + + + + + | RDW-CV | 13.6 | <15.0 % | [facility] | | | | | | [facility] | | | [facility] | | | | [facility] - | | | | | | [facility]ATORY | | + + + + + + | Platelet | 213 | 140 - 440 K/uL | [facility] | | | Count | | | [facility] | | | | | | [facility] | | | | [facility] - | | | | | | [facility] | | + + + + + + | MPV | 7.4 | fL | [facility] | | | | | | [facility] | | | | | [facility] | | | | [facility] - | | | | | | [facility] | | + + + + + + | % | 88.4 (H) | 45.0 - 82.0 % | [facility] | | | Neutrophils | | | [facility] | | | | | | [facility] | | | | | | [facility] - | | | | | | LAB[facility]ATORY | | + + + + + + | % | 7.9 (L) | 20.0 - 45.0 % | [facility] | | | Lymphocytes | | | [facility] | | | | | | [facility] | | | | | [facility] - | | | | | | [facility]ATORY | | + + + + + + | % Monocytes | 3.1 (L) | 4.0 - 12.0 % | [facility] | | | | | | [facility] | | | | | | [facility] | | | | | [facility] - | | | | | | [facility] | | + + + + + + | % | 0.4 | 0.0 - 5.0 % | [facility] | | | Eosinophils | | | [facility] | | | | | | [facility] | | | | | [facility] - | | | | | | LAB[facility]ATORY | | + + + + + + | % Basophils | 0.2 | 0.0 - 1.0 % | [facility] | | | | | | [facility] | [facility] | [facility] | | | | | | [facility] - | | | | | | LAB[facility]ATORY | | + + + + + + | Absolute | 4.70 | 1.80 - 8.50 | [facility] | | | Neutrophils | | K/uL | [facility] | | | | | [facility] | | | | | | [facility] - | | | | | | LABORATORY | | + + + + + + | Absolute | 0.40 (L) | 0.60 - 3.20 | [facility] | | | Lymphocytes | | K/uL | [facility] | | | | | | [facility] | | | | | | [facility] - | | | | | | LABORATORY | | + + + + + + | Absolute | 0.20 | 0.00 - 1.00 | [facility] | | | Monocytes | | K/uL | [facility] | | | | | | [facility] | | | | | | [facility] - | | | | | | [facility]ATORY | | + + + + + + | Absolute | 0.00 | 0.00 - 0.40 | [facility] | | | Eosinophils | | K/uL | [facility] | | | | | | [facility] | | | | | | [facility] - | | | | | | [facility]ATORY | | + + + + + + | Absolute | 0.00 | 0.00 - 0.10 | [facility] | | | Basophils | | K/uL | [facility] | | | | | | [facility] | | | | | | [facility] - | | | | | | [facility]ATORY | | + + + + + + + + | Specimen | + + | Blood | + + + + + + + | Performing | Address | City/State/Zipcode | Phone Number | | Organization | | | | + + + + + | [facility] | [address] | [place] | [phone] | | [facility] | | [address] | | | - LABORATORY | | | | + + + + + Basic Metabolic Panel (07/15/2016 6:09 AM PDT) + + + + + + | Component | Value | Ref Range | Performed | Pathologist | | | | | At | Signature | + + + + + + | Na | 137 | 136 - 149 | [facility] | | | | | mmol/L | [facility] | | | | | | [facility] | | | | | [facility] - | | | | | | LAB[facility]ATORY | | + + + + + + | K | 3.8 | 3.5 - 5.1 | [facility] | | | | | mmol/L | [facility] | | | | | | [facility] | | | | | | [facility] - | | | | | | LAB[facility]ATORY | | + + + + + + | Cl | 109 | 98 - 109 mmol/L | [facility] | | | | | | [facility] | | | | | | [facility] | | | | | | [facility] - | | | | | | LAB[facility]ATORY | | + + + + + + | CO2 | 22 (L) | 24 - 31 mmol/L | [facility] | | | | | | [facility] | | | | | [facility] | | | | | [facility] - | | | | | | LAB[facility]ATORY | | + + + + + + | Anion Gap | 6 | 3 - 16 mmol/L | [facility] | | | | | | [facility] | | | | | | [facility] | | | | | | [facility] - | | | | | | LAB[facility]ATORY | | + + + + + + | Glucose | 181 (H) | 70 - 109 mg/dL | [facility] | | | | | | [facility] | | | | | | [facility] | | [facility] | | | [facility] - | | | | | | LAB[facility]ATORY | | + + + + + + | BUN | 12 | 7 - 18 mg/dL | [facility] | | | | | | [facility] | | | | | [facility] | | | | | [facility] - | | | | | | LAB[facility]ATORY | | + + + + + + | Creatinine | 0.69 | 0.60 - 1.30 | [facility] | | | | | mg/dL | [facility] | | | | | | [facility] | | | | | | [facility] - | | | | | | LAB[facility]ATORY | | + + + + + + | eGFR if not | >60Comment: GLOMERULAR | >=60 | [facility] | | | | FILTRATION | mL/min/1.73m2 | [facility] | | | [place] | RATE,ESTIMATED | | MEDICAL | | | | mL/min/1.38c5Dyxn than | | CENTER - | | | | 60 Chronic kidney | | LABORATORY | | | | disease,if found over a | | | | | | 3-month period.Less than | | | | | | 15 Kidney failureFor | | | | | | | | | | | | Americans,multiply the | | | | | | calculated GFR by 1.21. | | | | | | | | | | + + + + + + | Calcium | 8.6 | 8.3 - 10.5 | [facility] | | | | | mg/dL | [facility] | | | | | | [facility] | | | | | | CENTER - | | | | | | LABORATORY | | + + + + + + | BUN/Creatin | 17.4 | | [facility] | | | ine Ratio | | | [facility] | | | | | | [facility] | | | | | | CENTER - | | | | | | LABORATORY | | + + + + + + + + | Specimen | + + | Blood | + + + + + + + | Performing | Address | City/State/Zipcode | Phone Number | | Organization | | | | + + + + + | [facility] | [address] | [place] | [phone] | | [facility] | | [address] | | | - LABORATORY | | | | + + + + + LABS - EXTERNAL SCAN (07/14/2016 12:00 AM PDT) + + + | Narrative | Performed At | + + + | Ordered by an | | | unspecified provider. | | + + + LABS - EXTERNAL SCAN (07/14/2016 12:00 AM PDT) + + + | Narrative | Performed At | + + + | Ordered by an | | | unspecified provider. | | + + + IMAGING REPORT - EXTERNAL SCAN (07/14/2016 12:00 AM PDT) + + + | Narrative | Performed At | + + + | Ordered by an | | | unspecified provider. | | + + + CT Abdomen Pelvis wo Contrast (08/23/2015 6:35 AM PST) + + | Specimen | + + | | + + + + + | Narrative | Performed At | + + + | External films for comparison only - no result from [facility]. | [facility] | + + + + +---------+ + + | Performing | Address | City/State/Zipcode | Phone Number | | Organization | | | | + +---------+ + + | [facility] | | | | + +---------+ + + documented in this encounter Visit Diagnoses + + | Diagnosis | + + | Acute abdominal pain in left flank - Primary Abdominal pain, unspecified site | + + | Ureterolithiasis Calculus of ureter | + + | Intractable left upper quadrant abdominal pain | + + | Acute pyelonephritis Acute pyelonephritis without lesion of renal medullary necrosis | + + | Sepsis, due to unspecified organism | + + | Ureteral calculus, left Calculus of ureter | + + | Sepsis (HCC) | + + | Acute cystitis without hematuria Acute cystitis | + + | Hepatitis C Unspecified viral hepatitis C without hepatic coma | + + | Smoker Tobacco use disorder | + + documented in this encounter Administered Medications + +--------+ +--------+------+------+ | Medication Order | MAR | Action | Dose | Rate | Site | | | Action | Date | | | | + +--------+ +--------+------+------+ | acetaminophen (TYLENOL) tablet | Given | 07/15/20 | 650 mg | | | | 650 mg 650 mg, Oral, EVERY 4 | | 16 5:43 | | | | | HOURS PRN, Mild Pain, Fever, | | PM PDT | | | | | fever equal to or more than 38.3 | | | | | | | C, Starting 07/14/16 at 2313, | | | | | | | May use liquid for patients | | | | | | | unable to swallow tablets. | | | | | | | Maximum dose of acetaminophen is | | | | | | | 4,000 mg from all sources in 24 | | | | | | | hours., Post-op/Phase II | | | | | | + +--------+ +--------+------+------+ +---+---+ | | | +---+---+ + +---------+ +--------+-------+---+ | ciprofloxacin in dextrose | New Bag | 07/15/20 | 400 mg | 200 | | | (CIPRO) IVPB 400 mg 400 mg, | | 16 9:18 | | mL/hr | | | Intravenous, Administer over 1 | | PM PDT | | | | | Hours, EVERY 12 HOURS (2 times | | | | | | | per day), First dose on Wed | | | | | | | 07/15/16 at 0900, Post-op/Phase | | | | | | | II, Indications: UTI - UPPER | | | | | | + +---------+ +--------+-------+---+ +---------+ +--------+-------+---+ | New Bag | 07/15/20 | 400 mg | 200 | | | | 16 9:17 | | mL/hr | | | | AM PDT | | | | +---------+ +--------+-------+---+ +---+---+ | | | +---+---+ + +-------+ +--------+---+---+ | docusate sodium (COLACE) | Given | 07/16/20 | 100 mg | | | | capsule 100 mg 100 mg, Oral, 2 | | 16 8:29 | | | | | TIMES DAILY, First dose on Wed | | AM PDT | | | | | 07/14/16 at 2330, Hold for loose | | | | | | | stools, Post-op/Phase II | | | | | | + +-------+ +--------+---+---+ +-------+ +--------+---+---+ | Given | 07/15/20 | 100 mg | | | | | 16 9:18 | | | | | | PM PDT | | | | +-------+ +--------+---+---+ | Given | 07/15/20 | 100 mg | | | | | 16 9:25 | | | | | | AM PDT | | | | +-------+ +--------+---+---+ +---+---+ | | | +---+---+ + +-------+ +--------+---+---+ | fentaNYL (PF) injection 25 mcg | Given | 07/14/20 | 50 mcg | | | | 25 mcg, Intravenous, EVERY 1 | | 16 9:51 | | | | | HOUR PRN, Pain, Starting Tue | | PM PDT | | | | | 07/14/16 at 2002 | | | | | | + +-------+ +--------+---+---+ +-------+ +--------+---+---+ | Given | 07/14/20 | 50 mcg | | | | | 16 9:28 | | | | | | PM PDT | | | | +-------+ +--------+---+---+ | Given | 07/14/20 | 25 mcg | | | | | 16 8:54 | | | | | | PM PDT | | | | +-------+ +--------+---+---+ +---+---+ | | | +---+---+ + +-------+ +--------+---+---+ | fentaNYL (PF) injection 50 mcg | Given | 07/14/20 | 50 mcg | | | | 50 mcg, Intravenous, ONCE, Tue | | 16 6:29 | | | | | 07/14/16 at 1825, For 1 dose | | PM PDT | | | | + +-------+ +--------+---+---+ +---+---+ | | | +---+---+ + +-------+ +---------+---+---+ | HYDROcodone-acetaminophen | Given | 07/15/20 | 2 | | | | (NORCO) 5-325 mg per tablet 1-2 | | 16 9:25 | tablets | | | | tablet 1-2 tablet, Oral, EVERY 4 | | AM PDT | | | | | HOURS PRN, Pain, Pain, Starting | | | | | | | 07/14/16 at 2313, If | | | | | | | ineffective use [place] 10/325 if | | | | | | | ordered. If not tolerated, use | | | | | | | Percocet then Oxycodone if | | | | | | | ordered. MAX 12 tabs/24 hrs., | | | | | | | Post-op/Phase II | | | | | | + +-------+ +---------+---+---+ +---+---+ | | | +---+---+ + +-------+ +-------+---+---+ | ketorolac (TORADOL) injection | Given | 07/16/20 | 15 mg | | | | 15 mg 15 mg, Intravenous, EVERY | | 16 6:58 | | | | | 6 HOURS (4 times per day), First | | AM PDT | | | | | dose on Wed07/15/16 at 0000, For | | | | | | | 48 hours, Hold and contact MD if | | | | | | | urine output is less than 240 | | | | | | | mL/8 hours (30 mL/hr) or if signs | | | | | | | of bleeding. Ketorolac dose not | | | | | | | to exceed 15 mg per dose in | | | | | | | patients greater than 65 years or | | | | | | | with CrCl < 50 mL/min or weight | | | | | | | < or = to 50 kg. If no serum | | | | | | | creatine (SrCr) or CrCl | | | | | | | available, initiate with 15 mg | | | | | | | dose., Post-op/Phase II | | | | | | + +-------+ +-------+---+---+ +-------+ +-------+---+---+ | Given | 07/16/20 | 15 mg | | | | | 16 12:41 | | | | | | AM PDT | | | | +-------+ +-------+---+---+ | Given | 07/15/20 | 15 mg | | | | | 16 5:17 | | | | | | PM PDT | | | | +-------+ +-------+---+---+ +---+---+ | | | +---+---+ + +---------+ +---+-------+---+ | lactated ringers (LR) infusion | New Bag | 07/14/20 | | 125 | | | at 125 mL/hr, Intravenous, | | 16 7:30 | | mL/hr | | | CONTINUOUS, Starting 07/14/16 | | PM PDT | | | | | at 1930, For 8 hours | | | | | | + +---------+ +---+-------+---+ +---+---+ | | | +---+---+ + +---------+ +---+-------+---+ | lactated ringers (LR) infusion | New Bag | 07/14/ | | 100 | | | at 10-100 mL/hr, Intravenous, | | 16 10:16 | | mL/hr | | | CONTINUOUS, Starting 07/14/16 | | PM PDT | | | | | at 2230, TKO. Use this instead | | | | | | | of NS unless dialysis patient., | | | | | | | Pre-op | | | | | | + +---------+ +---+-------+---+ +---+---+ | | | +---+---+ + +---------+ +---+-------+---+ | lactated ringers (LR) infusion | New Bag | 07/16/20 | | 125 | | | at 125 mL/hr, Intravenous, | | 16 1:45 | | mL/hr | | | CONTINUOUS, Starting 07/15/16 | | AM PDT | | | | | at 0830 | | | | | | + +---------+ +---+-------+---+ +---------+ +--------+-------+---+ | New Bag | 07/15/20 | 1,000 | 125 | | | | 16 5:21 | mLs | mL/hr | | | | PM PDT | | | | +---------+ +--------+-------+---+ | New Bag | 07/15/20 | 1,000 | 125 | | | | 16 9:16 | mLs | mL/hr | | | | AM PDT | | | | +---------+ +--------+-------+---+ +---+---+ | | | +---+---+ + +-------+ +--------+---+---+ | LORazepam (ATIVAN) tablet 0.5 | Given | 07/15/20 | 0.5 mg | | | | mg 0.5 mg, Oral, EVERY 12 HOURS | | 16 9:25 | | | | | PRN, Anxiety, Insomnia, Starting | | AM PDT | | | | | 07/14/16 at 2313, Caution: | | | | | | | medications may pose a fall | | | | | | | risk., Post-op/Phase II | | | | | | + +-------+ +--------+---+---+ +---+---+ | | | +---+---+ + +---------+ +---------+---+ + | nicotine (NICODERM) 14 mg/24 hr | Patch | 07/16/20 | 1 patch | | Arm-Righ | | 1 patch 1 patch, Transdermal, | Applied | 16 8:32 | | | t Upper | | DAILY, First dose on Wed07/14/16 | | AM PDT | | | | | at 2345 | | | | | | + +---------+ +---------+---+ + + + +---------+---+ + | Patch Applied | 07/15/20 | 1 patch | | Back-Rig | | | 16 7:19 | | | ht Upper | | | PM PDT | | | | + + +---------+---+ + | Patch Applied | 07/15/20 | 1 patch | | Back-Rig | | | 16 2:25 | | | ht Upper | | | AM PDT | | | | + + +---------+---+ + +---+---+ | | | +---+---+ + +-------+ +------+---+---+ | ondansetron (ZOFRAN ODT) | Given | 07/16/20 | 4 mg | | | | disintegrating tablet 4 mg 4 mg, | | 16 12:10 | | | | | Oral, EVERY 6 HOURS PRN, Nausea, | | PM PDT | | | | | Vomiting, Starting Wed07/14/16 | | | | | | | at 2313, First line agent, | | | | | | | Post-op/Phase II | | | | | | + +-------+ +------+---+---+ +-------+ +------+---+---+ | Given | 07/15/20 | 4 mg | | | | | 16 5:43 | | | | | | PM PDT | | | | +-------+ +------+---+---+ +---+---+ | | | +---+---+ + +-------+ +--------+---+---+ | phenazopyridine (PYRIDIUM) | Given | 07/15/20 | 200 mg | | | | tablet 200 mg 200 mg, Oral, 3 | | 16 9:18 | | | | | TIMES DAILY, First dose on Wed | | PM PDT | | | | | 07/14/16 at 2330, For 6 doses, | | | | | | | Avoid use in patients with CrCl | | | | | | | less than 50 mL/min., | | | | | | | Post-op/Phase II | | | | | | + +-------+ +--------+---+---+ +-------+ +--------+---+---+ | Given | 07/15/20 | 200 mg | | | | | 16 1:11 | | | | | | PM PDT | | | | +-------+ +--------+---+---+ | Given | 07/15/20 | 200 mg | | | | | 16 9:25 | | | | | | AM PDT | | | | +-------+ +--------+---+---+ +---+---+ | | | +---+---+ + +-------+ +--------+---+---+ | senna (SENOKOT) tablet 8.6 mg | Given | 07/16/20 | 8.6 mg | | | | 8.6 mg, Oral, 2 TIMES DAILY, | | 16 8:29 | | | | | First dose on Wed07/14/16 at | | AM PDT | | | | | 2330, If docusate ineffective or | | | | | | | not ordered, give BID until BM, | | | | | | | then PRN. Hold for loose stools, | | | | | | | Post-op/Phase II | | | | | | + +-------+ +--------+---+---+ +-------+ +--------+---+---+ | Given | 07/15/20 | 8.6 mg | | | | | 16 9:18 | | | | | | PM PDT | | | | +-------+ +--------+---+---+ | Given | 07/15/20 | 8.6 mg | | | | | 16 9:25 | | | | | | AM PDT | | | | +-------+ +--------+---+---+ +---+---+ | | | +---+---+ documented in this encounter
--- OUTSIDE RECORDS SUMMARY | ~2019-10-06 | XMS | Encounter Summary ---
Demographics + + + | Address | [address] | | | [place] [address] | + + + | Home Phone | | + + + | Preferred Language | Unknown | + + + | Marital Status | | + + + | Restorationism Affiliation | Unknown | + + + | Race | Unknown | + + + | Ethnic Group | Unknown | + + + Author + + + | Author | [facility] | | | and [place] | + + + | Organization | [facility] | | | and [place] | + + + | Address | Unknown | + + + | Phone | Unavailable | + + + Support + + + + + | Name | Relationship | Address | Phone | + + + + + | Jojo Clark | ECON | [place] | | | | | [address] | | + + + + + Care Team Providers + +------+ + | Care Nut And Bolt Assembler Name | Role | Phone | + +------+ + | Carolyn Roca | PCP | | + +------+ + Reason for Visit Auth/Cert +--------+--------+ + + + + | Status | Reason | Specialty | Diagnoses / | Referred By | Referred To | | | | | Procedures | Contact | Contact | +--------+--------+ + + + + | | | | Diagnoses | | | | | | | Calculus of | | | | | | | ureter | | | | | | | Calculus of | | | | | | | ureter | | | | | | | [N20.1] | | | | | | | Procedures | | | | | | | [place] | | | | | | | CYSTO/URETER | | | | | | | O/PYELOSCOPY | | | | | | | , CALCULUS | | | | | | | [place] | | | | | | | CYSTOSCOPY,I | | | | | | | NSERT | | | | | | | URETERAL | | | | | | | STENT | | | | | | | URETEROSCOPY | | | | | | | STONE | | | | | | | BASKETING | | | +--------+--------+ + + + + Encounter Details +--------+ + + + + | Date | Type | Department | Care Team | Description | +--------+ + + + + | 07/28/ | Anesthesia | [facility] | Nam Clark | | | 2016 | Event | [facility] | Ubaldo PINEDA MD [address] | | | | | [address] | [address] [place] | | | | | [place] | [place] [address] | | | | | [address] | | | | | | [phone] | | | | | | | William Potts MD | | | | | | [address] | | | | | | [place] | | | | | | [address] | | | | | | | | +--------+ + + + + Anesthesia Record + + + + + | Procedure Name | Responsible | Anesthesia Start | Anesthesia Stop Time | | | Anesthesiologist | Time | | + + + + + | Cystoscopy, Left | Nam Clark | 07/28/16 1552 | 07/28/16 1649 | | Ureteroscopy (Left | MD MIRIAM | | | | Ureter) | | | | + + + + + +----+---+ + + | Da | T | Event | Comment | | te | i | | | | | m | | | | | e | | | +----+---+ + + | 11 | 1 | | | | /0 | 5 | | | | 8/ | 4 | | | | 20 | 0 | | | | 16 | | | | +----+---+ + + | | 1 | An Checkout | Pre-use anesthesia machine/equipment checkout. | | | 5 | | | | | 4 | | | | | 4 | | | +----+---+ + + | | 1 | An Start | Reassessment prior to anesthesia induction/procedure. | | | 5 | | | | | 5 | | | | | 2 | | | +----+---+ + + | | 1 | Antibiotic | | | | 5 | Given | | | | 5 | | | | | 3 | | | +----+---+ + + | | 1 | An Start | | | | 5 | Data | | | | 5 | | | | | 4 | | | +----+---+ + + | | 1 | Preoxygenat | | | | 5 | ed | | | | 5 | | | | | 5 | | | +----+---+ + + | | 1 | An | | | | 5 | Induction | | | | 5 | | | | | 6 | | | +----+---+ + + | | 1 | An | | | | 5 | Intubation | | | | 5 | | | | | 7 | | | +----+---+ + + | | 1 | Holloway | | | | 5 | 43-degrees | | | | 5 | | | | | 8 | | | +----+---+ + + | | 1 | AN Bite | | | | 6 | Block | | | | 0 | | | | | 3 | | | +----+---+ + + | | 1 | First | | | | 6 | Inc/Proc St | | | | 1 | | | | | 0 | | | +----+---+ + + | | 1 | Holloway off | | | | 6 | | | | | 4 | | | | | 6 | | | +----+---+ + + | | 1 | AN No | TOF 4 with sustained tetanus. | | | 6 | Residual | | | | 4 | NMB | | | | 6 | | | +----+---+ + + | | 1 | Extubated | | | | 6 | Awake | | | | 4 | | | | | 6 | | | +----+---+ + + | | 1 | An Stop | Patient handed off to recovery nurse. | | | 4 | | | | | 9 | | | +----+---+ + + +------+ | Meds | +------+ + + + | Name | Total | + + + | propofol (DIPRIVAN) injection | 250 mg | | (bolus) (20 mL) | | + + + | lidocaine 1% | 50 mg | + + + | dexmedetomidine (Bolus) | 50 mcg | + + + | levoFLOXacin in dextrose | 500 mg | | (LEVAQUIN) IVPB 500 mg | | + + + | lactated ringers (LR) infusion | 1,550 mL | + + + + + | Name | + + | N2O Flow Rate (L/Min) | + + | O2 Flow Rate (L/Min) | + + | Insp O2 | + + | Exp SEV | + + | Exp LASHELL | + + | Air Flow Rate (L/Min) | + + + + | No blood administrations on file. | + + +--------+ + + + | Type | Details | Placement | Removal | +--------+ + + + | Periph | 07/28/16; 1407; Left; Medial; | 07/28/16 1407 by | 07/28/16 1735 by | | eral | Forearm; [id number]-zch-[id number] catheter | Elizabeth Sutherland RN | Katia Washington RN | | IV | system; 20 gauge; distraction, | | | | | intradermal injection; no longer | | | | | indicated, removed per | | | | | policy/procedure, catheter/device | | | | | intact; short term use; | | | | | 07/28/16; 1735 | | | +--------+ + + + | Airway | Placement Date: 07/28/16; | 07/28/161610 by | 07/28/16 164 by | | | Placement Time: 1610 (created via | Nam Clark | Nam Clark | | | procedure documentation); Mask | MD MIRIAM | MD MIRIAM | | | Ventilation: EZ; Airway Type: | | | | | laryngeal mask; Size: 3; | | | | | Placement Check: exhaled CO2 | | | | | detection device, bilateral chest | | | | | rise, breath sounds equal | | | | | bilaterally; Removal Date: | | | | | 07/28/16; Removal Time: 1645 | | | +--------+ + + + documented in this encounter Social History + + + +--------+------+ | Tobacco Use | Types | Packs/Day | Years | Date | | | | | Used | | + + + +--------+------+ | Current Every Day | Cigarettes | 1.5 | 14 | | | Smoker | | | | | + + + +--------+------+ + +---+---+---+ | Smokeless Tobacco: | | | | | Never Used | | | | + +---+---+---+ + + +---------+ + | Alcohol Use [...] | + +--------+ + + + | ANE AIRWAY NOTE | Routin | 07/28/2016 | | Results for this | | | e | 4:11 PM | | procedure are in the | | | | PST | | results section. | + +--------+ + + + documented in this encounter Results Anesthesia Airway Note (07/28/2016 4:11 PM PST) + + + | Narrative | Performed At | + + + | Nam Clark II, MD 07/28/2016 16:11 Anesthesia Airway | | | Placement Preprocedure check: patient identified, oxygen, airway | | | assessed, patient reassessment prior to induction, airway equipment | | | checked and suction Rapid Sequence Induction: no Mask ventilation: | | | easy Airway type: laryngeal mask Size: 3 Cuffed: cuffed Route, | | | reference point: center of mouth Tube secured with: adhesive tape | | | Trauma: none Tube placement verification: bilateral chest rise, equal | | | bilateral breath sounds and carbon dioxide detection Performing | | | provider: NAM CLARK II Electronically Signed by: | | | Nam Clark II, MD ESig | | | date/time: 07/28/2016 16:10 | | + + + documented in this encounter Visit Diagnoses Not on filedocumented in this encounter Administered Medications + +--------+ +--------+------+------+ | Medication Order | MAR | Action | Dose | Rate | Site | | | Action | Date | | | | + +--------+ +--------+------+------+ | dexmedetomidine (PRECEDEX) in | Given | 07/28/20 | 50 mcg | | | | sodium chloride bolus infusion | | 16 3:56 | | | | | Intravenous, PRN, Starting e | | PM PST | | | | | 07/28/16 at 1556, Anesthesia | | | | | | | Intra-op | | | | | | + +--------+ +--------+------+------+ +---+---+ | | | +---+---+ + +---------+ +--------+-------+---+ | lactated ringers (LR) infusion | New Bag | 07/28/20 | 1,000 | 100 | | | at 10-100 mL/hr, Intravenous, | | 16 5:13 | mLs | mL/hr | | | CONTINUOUS, Starting 07/28/16 | | PM PST | | | | | at 1400, TKO., Pre-op | | | | | | + +---------+ +--------+-------+---+ +---------+ +--------+-------+---+ | New Bag | 07/28/20 | | | | | | 16 4:29 | | | | | | PM PST | | | | +---------+ +--------+-------+---+ | New Bag | 07/28/20 | 1,000 | 100 | | | | 16 2:07 | mLs | mL/hr | | | | PM PST | | | | +---------+ +--------+-------+---+ +---+---+ | | | +---+---+ + +-------+ +--------+---+---+ | levoFLOXacin in dextrose | Given | 07/28/20 | 500 mg | | | | (LEVAQUIN) IVPB 500 mg 500 mg, | | 16 3:53 | | | | | Intravenous, Administer over 60 | | PM PST | | | | | Minutes, ADJUNCT COMMUNICATIONS FACULTY MEMBER, Starting Tue | | | | | | | 07/28/16 at 1339, For 1 dose, | | | | | | | Pre-op, Indications: Surgical | | | | | | | Prophylaxis | | | | | | + +-------+ +--------+---+---+ +---+---+ | | | +---+---+ + +-------+ +-------+---+---+ | lidocaine (PF) 1% injection | Given | 07/28/20 | 50 mg | | | | Intravenous, PRN, Starting Tue | | 16 3:56 | | | | | 07/28/16 at 1556, Anesthesia | | PM PST | | | | | Intra-op | | | | | | + +-------+ +-------+---+---+ +---+---+ | | | +---+---+ + +-------+ +--------+---+---+ | propofol (DIPRIVAN) injection | Given | 07/28/20 | 100 mg | | | | Intravenous, PRN, Starting Tue | | 16 3:56 | | | | | 07/28/16 at 1552, Anesthesia | | PM PST | | | | | Intra-op | | | | | | + +-------+ +--------+---+---+ +-------+ +-------+---+---+ | Given | 07/28/20 | 50 mg | | | | | 16 3:55 | | | | | | PM PST | | | | +-------+ +-------+---+---+ | Given | 11/08/20 | 40 mg | | | | | 16 3:54 | | | | | | PM PST | | | | +-------+ +-------+---+---+ +---+---+ | | | +---+---+ documented in this encounter"
--- OUTSIDE RECORDS SUMMARY | ~2019-10-06 | XMS | Encounter Summary ---
Demographics + + + | Address | [address] | | | [place] [address] | + + + | Home Phone | | + + + | Preferred Language | Unknown | + + + | Marital Status | | + + + | Sabianist Affiliation | Unknown | + + + | Race | Unknown | + + + | Ethnic Group | Unknown | + + + Author + + + | Author | [facility] | | | and [place] | + + + | Organization | [facility] | | | and [place] | + + + | Address | Unknown | + + + | Phone | Unavailable | + + + Support + + + + + | Name | Relationship | Address | Phone | + + + + + | Jojo Clark | ECON | [place] | | | | | [address] | | + + + + + Care Team Providers + +------+ + | Care Seat Mender Name | Role | Phone | + +------+ + | Carolyn Roca | PCP | | + +------+ + Reason for Visit + + + | Reason | Comments | + + + | Appointment | | + + + Encounter Details +--------+ + + + + | Date | Type | Department | Care Team | Description | +--------+ + + + + | 09/08/ | Telephone | [facility] [facility] | Mike Laurent, | Appointment | | 2015 | | [address] | MD [address] | | | | | [place] | [place] | | | | | [address] | [address] | | | | | [phone] | | | +--------+ + + + + Social History + + + +--------+------+ | [...] as of this encounter Plan of Treatment + +---------+--------+ + + | Name | Type | Priori | Associated Diagnoses | Order Schedule | | | | ty | | | + +---------+--------+ + + | XR Abdomen AP | Imaging | Routin | Left ureteral | Expected: | | | | e | calculus | 09/08/2016, Expires: | | | | | | 09/08/2017 | + +---------+--------+ + + documented as of this encounter Visit Diagnoses + + | Diagnosis | + + | Left ureteral calculus - Primary Calculus of ureter | + + documented in this encounter"
--- OUTSIDE RECORDS SUMMARY | ~2019-10-06 | XMS | Encounter Summary ---
Demographics + + + | Address | [address] | | | [place] [address] | + + + | Home Phone | | + + + | Preferred Language | Unknown | + + + | Marital Status | | + + + | Bahai Affiliation | Unknown | + + + | Race | Unknown | + + + | Ethnic Group | Unknown | + + + Author + + + | Author | [facility] | | | and [place] | + + + | Organization | [facility] | | | and [place] | + + + | Address | Unknown | + + + | Phone | Unavailable | + + + Support + + + + + | Name | Relationship | Address | Phone | + + + + + | Jojo Clark | ECON | [place] | | | | | [address] | | + + + + + Care Team Providers + +------+ + | Care Crew Boss Name | Role | Phone | + [...] | +--------+ + + + + | 07/17/ | Telephone | [facility] | Mike Laurent, | Appointment | | 2015 | | [address] | MD [address] | | | | | [place] | [place] | | | | | [address] | [address] | | | | | [phone] | | | +--------+ + + + [...]
--- OUTSIDE RECORDS SUMMARY | ~2019-10-06 | XMS | Encounter Summary ---
Demographics + + + | Address | [address] | | | [place] [address] | + + + | Home Phone | | + + + | Preferred Language | Unknown | + + + | Marital Status | | + + + | Adventism Affiliation | Unknown | + + + | Race | Unknown | + + + | Ethnic Group | Unknown | + + + Author + + + | Author | [facility] | | | and [place] | + + + | Organization | [facility] | | | and [place] | + + + | Address | Unknown | + + + | Phone | Unavailable | + + + Support + + + + + | Name | Relationship | Address | Phone | + + + + + | Jojo Clark | ECON | [place] | | | | | [address] | | + + + + + Care Team Providers + +------+ + | Care Restoration Ecologist Name | Role | Phone | + [...] | | | | | | | [place] | | | | | | | CYSTO/URETER | | | | | | | O/PYELOSCOPY | | | | | | | , CALCULUS | | | | | | | [place] | | | | | | | [...] Description | +--------+---------+ + + + | 07/28/ | [facility] | [facility] | Mike Laurent, | Cystoscopy, Left | | 2015 | | [facility] | MD Josette ANDREWS | Ureteroscopy | | | | [address] | [place] | | | | | [place] | [id number] | | | | | [address] | | | | | | [phone] | | | +--------+---------+ + + + Social History + + [...] | Blood Pressure | 92/62 | 07/28/2016 5:30 PM | | | | | PST | | + + + + + | Pulse | 75 | 07/28/2016 5:30 PM | | | | | PST | | + + + + + | Temperature | 36.9 C (98.4 F) | 07/28/2016 4:48 PM | | | | | PST | | + + + + + | Respiratory Rate | 20 | 07/28/2016 5:30 PM | | | | | PST | | + + + + + | Oxygen Saturation | 98% | 07/28/2016 5:30 PM | | | | | PST | | + + + + + | Inhaled Oxygen | - | - | | | Concentration | | | | + + + + + | Weight | 74.4 kg (164 lb) | 07/28/2016 1:00 PM | | | | | PST | | + + + + + | Height | 157.5 cm (5' 2") | 07/28/2016 1:00 PM | | | | | PST | | + + + + + | Body Mass Index | 30 | 07/28/2016 1:00 PM | | | | | PST | | + + + + + [...] + documented as of this encounter Discharge Instructions Instructions Mike Laurent MD - 07/28/2016DISCHARGE INSTRUCTIONS URINARY TRACT STONE SURGERY including: URETEROSCOPY URETERAL STENT REMOVAL Activity: Light for 1-2 days. Walk frequently as tolerated. Gradually return to normal activitie s as tolerated. Best to avoid intercourse for 5-7 days. [...] surgery. Use pain medication as directed. Take Tylenol for less severe pain. Do not take Aspirin for 72 hours after your surgery, unless instructed differently. Additional Instructions: You may shower at any time. Follow up: Call Dr Laurent's office ([phone]) to set up your follow-up appointment or [...] can move your legs easily without pain. Stent: You do not have a ureteral stent in on your left side. documented in this encounter Medications at Time [...] | + +--------+ + + + | FL PYELOGRAM | Routin | 07/28/2016 | | Results for this | | RETROGRADE | e | 4:43 PM | | procedure are in the | | | | PST | | results section. | + +--------+ + + + | URETEROSCOPY STONE | | 07/28/2016 | Calculus of ureter | | | BASKETING | | 3:37 PM | | | | | | PST | | | + +--------+ + + + | POCT TEST, | Routin | 07/28/2016 | | Results for this | | URINE, QUAL | e | 1:55 PM | | procedure are in the [...] + + documented in this encounter Results FL Pyelogram Retrograde (07/28/2016 4:43 PM PST) + + | Specimen | + + | | + + + + + | Narrative | Performed At | + + + | No Radiologist interpretation, please see Chart Review. | [facility] | + + + + +---------+ + + | Performing | Address | City/State/Zipcode | Phone Number | | Organization | | | | + +---------+ + + | [facility] | | | | + +---------+ + + POCT Test, Urine, QUAL (07/28/2016 1:55 PM PST) + + + + + + | Component | Value | Ref Range | Performed | Pathologist | | | | | At | Signature | + + + + + + | | Negative | Negative | | | | Test, | | | | | | Urine, POC | | | | | + + + + + + | Internal QC | Acceptable | | | | + + + + + + | Specific | | 1.010, 1.015, | | | | [place], | | 1.020, 1.025 | | | | POC | | | | | + + + + + + | Lot Number | [id number] | | | | + + + + + + | Expiration | 4/18 | | | | | Date | | | | | + + + + + + + + | Specimen | + + | Urine specimen | | (specimen) | + + LABS - EXTERNAL SCAN (07/27/2016 12:00 AM PST) + + + | Narrative | Performed At | + + + | Ordered by an | | | unspecified provider. | | + + + documented in this encounter Visit Diagnoses + + | Diagnosis | + + | Calculus of ureter | + + documented in this encounter Administered Medications + +--------+ + +------+------+ | Medication Order | MAR | Action | Dose | Rate | Site | | | Action | Date | | | | + +--------+ + +------+------+ | HYDROcodone-acetaminophen | Given | 07/28/20 | 1 tablet | | | | (NORCO) 5-325 mg per tablet 1-2 | | 16 5:30 | | | | | tablet 1-2 tablet, Oral, EVERY 4 | | PM PST | | | | | HOURS PRN, Pain, Starting Tue | | | | | | | 07/28/16 at 1709, Post-op/Phase II | | | | | | + +--------+ + +------+------+ +---+---+ | | | +---+---+ + +---------+ [...] +--------+---+---+ | phenazopyridine (PYRIDIUM) | Given | 07/28/20 | 200 mg | | | | tablet 200 mg 200 mg, Oral, | | 16 5:30 | | | | | ONCE, Ryan 07/28/16 at 1730, For 1 | | PM PST | | | | | dose, Post-op/Phase II | | | | | | + +-------+ +--------+---+---+ +---+---+ | | | +---+---+ documented in this encounter
--- OUTSIDE RECORDS SUMMARY | ~2019-10-06 | XMS | Encounter Summary ---
Demographics + + + | Address | [address] | | | [place] [address] | + + + | Home Phone | | + + + | Preferred Language | Unknown | + + + | Marital Status | | + + + | Synagogue Affiliation | Unknown | + + + | Race | Unknown | + + + | Ethnic Group | Unknown | + + + Author + + + | Author | [facility] | | | and [place] | + + + | Organization | [facility] | | | and [place] | + + + | Address | Unknown | + + + | Phone | Unavailable | + + + Support + + + + + | Name | Relationship | Address | Phone | + + + + + | Jojo Clark | ECON | [place] | | | | | [address] | | + + + + + Care Team Providers + +------+ + | Care Ship Steward Name | Role | Phone | + [...] | | | | | | | ME | | | | | | | [...] Description | +--------+---------+ + + + | 07/14/ | Surgery | [facility] | Mike Laurent, | Cystoscopy w/ Left | | 2016 | | MED CTR OR INTRA OP | MD Josette ANDREWS | Ureteral Stent | | | | [address] | [place], [place] | Placement | | | | [place], [place] | [address] | | | | | [address] | | | | | | [phone] | | | +--------+---------+ + + + [...] might be different fro m the original. [facility] Urology Discharge Summary Patient Name: Kelsie Altman [...] time. Follow up: Call Dr Laurent's office ([phone]) to set up your follow-up appointment or [...] for 8 hours or increasing bladder pressure [phone] [employer]. [address] [place] [address]. All righ ts reserved. This information is [...] | | Neutrophils | | K/uL | [facility] | | | | | | MEDICAL | | | | | | CENTER - | | | | | | LABORATORY | | + + + + + + | Absolute | 0.40 (L) | 0.60 - 3.20 | [facility] | | | Lymphocytes | | K/uL | [facility] | [...] + | [facility] | [address] | [place] | [phone] | | [facility] | | [address] | | | - LABORATORY | | [...] | | | | mg/dL | [facility] | | | | | | MEDICAL | | | | | | CENTER - | | | | | | LABORATORY | | + + + + + + | eGFR if not | >60Comment: GLOMERULAR | >=60 | [facility] | | | | FILTRATION | mL/min/1.73m2 | [facility] | | | [place] | RATE,ESTIMATED | | MEDICAL | | | | mL/min/1.59z9Aeyq than | | CENTER - | | [...] | 8.6 | 8.3 - 10.5 | [facility] | | | | | mg/dL | [facility] | | | | | | MEDICAL | | | | | | CENTER - | | | | | | LABORATORY | | + + + + + + | BUN/Creatin | 17.4 | | [facility] | | | ine Ratio | | | [facility] | | | | | | [...] + + | [facility] | [address] | [place] | [phone] | | [facility] | | [address] | | | - LABORATORY | | [...] Diagnosis | + + | Left ureteral stone | + + | Urinary tract infection, site unspecified | + + documented in this encounter
--- OUTSIDE RECORDS SUMMARY | ~2019-10-06 | XMS | Encounter Summary ---
Demographics + + + | Address | [address] | | | [place] [address] | + + + | Home Phone | | + + + | Preferred Language | Unknown | + + + | Marital Status | | + + + | Baptist Affiliation | Unknown | + + + | Race | Unknown | + + + | Ethnic Group | Unknown | + + + Author + + + | Author | [facility] | | | and [place] | + + + | Organization | [facility] | | | and [place] | + + + | Address | Unknown | + + + | Phone | Unavailable | + + + Support + + + + + | Name | Relationship | Address | Phone | + + + + + | Jojo Clark | ECON | [place] | | | | | [address] | | + + + + + Care Team Providers + +------+ + | Care Delicatessen Slicer Name | Role | Phone | + [...] | Urology | Diagnoses | Anastasiia, | [place], | | | Services | | Left | Mike Sarabia MD | Mike Sarabia MD | | | Required | | ureteral | [address] | | | | | calculus | AVE [place] | [place] | | | | | Procedures | [place], [place] | [place] | | | | | [place] | [address] | [address] Phone: | | | | | CYSTO/URETER | Phone: | [phone] | | | | | O/PYELOSCOPY | [phone] | Fax: | | | | | , CALCULUS | Fax: | [phone] | | | | | [place] | [phone] | | | | | | CYSTOSCOPY,I [...] | | | | | ureter | [employer] | [address] | | | | | Unspecified | [address] | [place] | | | | | abdominal | [place], | [place] | | | | | pain PRE-OP | [place] [address] | [address] Phone: | | | | | Procedures | Phone: | [phone] | | | | | OFFICE | [phone] | Fax: | | | | | VISIT | Fax: | [phone] | | | | | EXTENDED | [phone] | | +--------+--------+ + + + + [...] | calculus (Primary | | | | [place], [place] | [place], [place] | Dx); Hepatitis C | | | | [address] | [address] | virus infection, | | | | [phone] | | unspecified | | | | [...] July 29, 2016 at 2:30 PM at [facility]. Please [facility] no later than 1:00 PM. REMEMBER: NOTHING TO EAT OR DRINK AFTER MIDNIGHT July 28, 2016. NO ASPIRIN OR ASPIRIN PRODUCTS ONE WEEK PRIOR TO SURGERY. Tylenol and Advil are OK. You will need to get the following testing done prior to surgery: CBC, CMP, URIC ACID, UA, PT/INR, PTT, LIVER PANEL Call us at [phone] with any questions. [x] Pain management booklet [...] for 8 hours or increasing bladder pressure [phone] [employer]. [address] [place] [address]. All righ ts reserved. This information is [...] Kelsie presented to the emergency department at [facility] on 07/14/2016 with a 3 to four-day history of left back and flank pain associated with fevers to 102. CT imagin g at [facility] suggested a "distal left ureteral 3-4 mm stone with mild left hydronephro sis, mild pyelosinus and periureteral edema." She appeared septic at [facility] , so she was transferred to [facility] on 07/14/2016 where she under [...] surgical procedure and anesthesia including DVT, PE, NY, CVA, and even . Kelsie indicates her [...] have not thoroughly proofread this note, and unemployment inspector erro rs may occur. CC: TESS Mathews [...]
--- OUTSIDE RECORDS SUMMARY | ~2019-10-06 | XMS | Encounter Summary ---
Demographics + + + | Address | [address] | | | [place] [address] | + + + | Home Phone | | + + + | Preferred Language | Unknown | + + + | Marital Status | | + + + | Scientologist Affiliation | Unknown | + + + | Race | Unknown | + + + | Ethnic Group | Unknown | + + + Author + + + | Author | [facility] | | | and [place] | + + + | Organization | [facility] | | | and [place] | + + + | Address | Unknown | + + + | Phone | Unavailable | + + + Support + + + + + | Name | Relationship | Address | Phone | + + + + + | Jojo Clark | ECON | [place] | | | | | [address] | | + + + + + Care Team Providers + +------+ + | Care Roading Engineer Name | Role | Phone | [...] + + + + | 07/14/ | Anesthesia | [facility] | Michelle Gutierrez | | | 2015 | Event | MED CTR OR INTRA OP | MD Taylor [address] | | | | | [address] | [address] [place] | | | | | [place], [place] | [place] [address] | | | | | [address] | [phone] | | | | | [phone] | | | +--------+ + + + + Anesthesia Record + + + + + | Procedure Name | Responsible | Anesthesia Start | Anesthesia Stop Time | | | Anesthesiologist | Time | | + + + + + | Cystoscopy w/ Left | Michelle Gutierrez, | 07/14/162127 | 07/14/162216 | | Ureteral Stent | | | | | Placement (Left | | | | | Vagina ) | | | | + + + + + +----+---+ + + | Da | T | Event | Comment | | te | i | | | | | m | | | | | e | | | +----+---+ + + | 10 | 2 | | | | /2 | 0 | | | | 5/ | 2 | | | | 20 | 6 | | | | 16 | | | | +----+---+ + + | | 2 | An Checkout | Pre-use anesthesia machine/equipment checkout. | | | 1 | | | | | 2 | | | | | 7 | | | +----+---+ + + | | 2 | An Start | Reassessment prior to anesthesia induction/procedure. Pt brought | | | 1 | | from ED to OR6. | | | 2 | | | | | 8 | | | +----+---+ + + | | 2 | AN | Per surgeon request | | | 1 | Antibiotic | | | | 3 | declined | | | | 5 | | | +----+---+ + + | | 2 | An Start | | | | 1 | Data | | | | 3 | | | | | 5 | | | +----+---+ + + | | 2 | Preoxygenat | | | | 1 | ed | | | | 3 | | | | | 7 | | | +----+---+ + + | | 2 | An | | | | 1 | Induction | | | | 3 | | | | | 9 | | | +----+---+ + + | | 2 | An | | | | 1 | Intubation | | | | 4 | | | | | 1 | | | +----+---+ + + | | 2 | AN Bite | | | | 1 | Block | | | | 4 | | | | | 5 | | | +----+---+ + + | | 2 | Pre-Procedu | | | | 1 | ral Timeout | | | | 5 | Completed | | | | 0 | | | +----+---+ + + | | 2 | First | | | | 1 | Inc/Proc St | | | | 5 | | | | | 1 | | | +----+---+ + + | | 2 | AN No | TOF 4/4 with sustained tetanus. | | | 1 | Residual | | | | 5 | NMB | | | | 9 | | | +----+---+ + + | | 2 | Oropharynx | | | | 1 | Suctioned | | | | 5 | | | | | 9 | | | +----+---+ + + | | 2 | Breathing | | | | 2 | Spontaneous | | | | 0 | ly | | | | 3 | | | +----+---+ + + | | 2 | Moving | | | | 2 | Purposefull | | | | 0 | y | | | | 7 | | | +----+---+ + + | | 2 | Extubated | | | | 2 | Awake | | | | 0 | | | | | 9 | | | +----+---+ + + | | 2 | an stop | | | | 2 | data | | | | 0 | | | | | 9 | | | +----+---+ + + | | 2 | An Stop | Patient handed off to recovery nurse. | | | 1 | | | | | 7 | | | +----+---+ + + +------+ | Meds | +------+ + +---------+ | Name | Total | + +---------+ | midazolam | 2 mg | + +---------+ | propofol (DIPRIVAN) injection | 100 mg | | (bolus) (20 mL) | | + +---------+ | lidocaine 2% | 50 mg | + +---------+ | succinylcholine | 100 mg | + +---------+ | ondansetron | 4 mg | + +---------+ | dexamethasone | 10 mg | + +---------+ | phenylephrine (Injection) | 100 mcg | + +---------+ | fentaNYL (PF) injection 25 mcg | 100 mcg | + +---------+ + + | Name | + + [...] +--------+ + + + | Periph | 07/14/16; (present on arrival to | 07/14/16 0000 by | 07/15/16 1434 by | | eral | PACU); Right; Medial; Wrist; no | Brant Lucero RN | Gary Landa RN | | IV | longer indicated, catheter/device | | | | | intact; short term use; | | | | | 07/15/16; 1434 | | | +--------+ + + + | Airway | Placement Date: 07/14/16; | 07/14/162140 by Tor | 07/14/162208 by Tor | | | Placement Time: 2140 (created via | Taylor Gutierrez MD | Taylor Gutierrez MD | | | procedure documentation); Mask | | | | | Ventilation: EZ; Airway Grade: | | | | | 2a; Successful Technique: Mac; | | | | | Laryngoscope Blade Size: 3; | | | | | Attempts: 1; Airway Type: | | | | | endotracheal; Size: 6.5; Airway | | | | | Tube Secured At: 21; Other | | | | | Equipment: stylette; Placement | | | | | Check: exhaled CO2 detection | | | | | device; Removal Date: 07/14/16; | | | | | Removal Time: 2208 | | | +--------+ + + + | Read | 07/14/16; 2158; vagina; healing | 07/14/162158 by | 07/16/161214 by | | only - | within expectations; 07/16/16; | Panfilo Duque RN | Geovanna Higgins, | | | 1215 | | RN | | Incisi | | | | | on | | | | +--------+ + + + documented in this encounter Social History + +-------+ +--------+------+ | Tobacco [...] | ANE AIRWAY NOTE | Routin | 07/14/2016 | | Results for this | | | e | 10:03 PM | | procedure are in the | | | | PDT | | results section. | + +--------+ + + + documented in this encounter Results Anesthesia Airway Note (07/14/2016 10:03 PM PDT) + + + | Narrative | Performed At | + + + | Michelle Gutierrez MD 07/14/2016 22:03 Anesthesia Airway | | | Placement 07/14/2016 21:41 Preprocedure check: patient | | | identified, oxygen, airway assessed, patient reassessment prior to | | | induction, airway equipment checked and suction Rapid Sequence | | | Induction: no Mask ventilation: easy Successful technique: Mac | | | Laryngoscope blade size: 3 Airway grade: 2a (Partial view of | | | glottis) Other equipment: stylette Attempts: 1 Airway type: | | | endotracheal Size: 6.5 Cuffed: cuffed Route, reference point: right | | | side of mouth Tube depth: 21 cm Tube secured with: adhesive tape | | | Trauma: none Tube placement verification: carbon dioxide detection | | | Performing provider: MICHELLE GUTIERREZ Electronically Signed | | | by: Michelle Gutierrez MD ESig | | | date/time: 07/14/2016 22:02 | | + + + documented in this encounter Visit Diagnoses Not on filedocumented in this encounter Administered Medications + +--------+ +-------+------+------+ | Medication Order | MAR | Action | Dose | Rate | Site | | | Action | Date | | | | + +--------+ +-------+------+------+ | dexamethasone (DECADRON) 10 | Given | 07/14/20 | 10 mg | | | | mg/mL injection Intravenous, | | 16 9:54 | | | | | PRN, Starting 07/14/16 at | | PM PDT | | | | | 2154, Anesthesia Intra-op | | | | | | + +--------+ +-------+------+------+ +---+---+ | | | +---+---+ + +-------+ [...] +-------+ +--------+---+---+ +-------+ +--------+---+---+ | Given | 10/25/20 | 50 mcg | | | | | 16 9:28 | | | | | | PM PDT | | | | +-------+ +--------+---+---+ | Given | 10/25/20 | 25 mcg | | | | | 16 8:54 | | | | | | PM PDT | | | | +-------+ +--------+---+---+ +---+---+ | | | +---+---+ + +-------+ +-------+---+---+ | lidocaine (PF) 2% injection | Given | 07/14/20 | 50 mg | | | | Intravenous, Hadley ESPARZA Tukoffi | | 16 9:39 | | | | | 07/14/16 at 2128, Anesthesia | | PM PDT | | | | | Intra-op | | | | | | + +-------+ +-------+---+---+ +---+---+ | | | +---+---+ + +-------+ +------+---+---+ | midazolam (VERSED) 1 mg/mL | Given | 07/14/20 | 2 mg | | | | injection Intravenous, PRN, | | 16 9:28 | | | | | Anxiety, Starting Wed07/14/16 at | | PM PDT | | | | | 2128, Anesthesia Intra-op | | | | | | + +-------+ +------+---+---+ +---+---+ | | | +---+---+ + +-------+ +------+---+---+ | ondansetron (ZOFRAN) injection | Given | 07/14/20 | 4 mg | | | | Intravenous, PRN, Nausea, | | 16 9:54 | | | | | Vomiting, Starting Wed07/14/16 | | PM PDT | | | | | at 2154, Anesthesia Intra-op | | | | | | + +-------+ +------+---+---+ +---+---+ | | | +---+---+ + +-------+ +---------+---+---+ | phenylephrine (LAUREN-SYNEPHRINE) | Given | 07/14/20 | 100 mcg | | | | 100 mcg/mL injection | | 16 9:47 | | | | | Intravenous, PRN, Starting Tue | | PM PDT | | | | | 07/14/16 at 2147, Anesthesia | | | | | | | Intra-op | | | | | | + +-------+ +---------+---+---+ +---+---+ | | | +---+---+ + +-------+ +--------+---+---+ | propofol (DIPRIVAN) injection | Given | 07/14/20 | 100 mg | | | | Intravenous, PRN, Starting Tue | | 16 9:39 | | | | | 07/14/16 at 2128, Anesthesia | | PM PDT | | | | | Intra-op | | | | | | + +-------+ +--------+---+---+ +---+---+ | | | +---+---+ + +-------+ +--------+---+---+ | succinylcholine (ANECTINE) | Given | 07/14/20 | 100 mg | | | | injection Intravenous, PRN, | | 16 9:39 | | | | | Starting 07/14/16 at 2139, | | PM PDT | | | | | Anesthesia Intra-op | | | | | | + +-------+ +--------+---+---+ +---+---+ | | | +---+---+ documented in this encounter"
--- OUTSIDE RECORDS SUMMARY | ~2019-10-06 | XMS | Encounter Summary ---
Demographics + + + | Address | [address] | | | [place] [address] | + + + | Home Phone | | + + + | Preferred Language | Unknown | + + + | Marital Status | | + + + | Zoroastrianism Affiliation | Unknown | + + + | Race | Unknown | + + + | Ethnic Group | Unknown | + + + Author + + + | Author | [facility] | | | and [place] | + + + | Organization | [facility] | | | and [place] | + + + | Address | Unknown | + + + | Phone | Unavailable | + + + Support + + + + + | Name | Relationship | Address | Phone | + + + + + | Jojo Clark | ECON | [place] | | | | | [address] | | + + + + + Care Team Providers + +------+ + | Care Diesel Pile Driver Operator Name | Role | Phone | [...] | | | | | | | [place] | | | | | | | [...] | | | | | [address] | [address] [place] | | | | | [place], [place] | [place] [address] | | | | | [address] | [phone] | | | | | [phone] | | | +--------+ + + + [...]
--- OUTSIDE RECORDS SUMMARY | ~2019-10-06 | XMS | Encounter Summary ---
Demographics + + + | Address | [address] | | | [place] [address] | + + + | Home Phone | | + + + | Preferred Language | Unknown | + + + | Marital Status | | + + + | Christianity Affiliation | Unknown | + + + | Race | Unknown | + + + | Ethnic Group | Unknown | + + + Author + + + | Author | [facility] | | | and [place] | + + + | Organization | [facility] | | | and [place] | + + + | Address | Unknown | + + + | Phone | Unavailable | + + + Support + + + + + | Name | Relationship | Address | Phone | + + + + + | Jojo Clark | ECON | [place] | | | | | [address] | | + + + + + Care Team Providers + +------+ + | Care Television Installer Helper Name | Role | Phone | + +------+ + | No, Physician | PCP | Unavailable | + +------+ + Encounter Details +--------+ + + + + | Date | Type | Department | Care Team | Description | +--------+ + + + + | 07/14/ | Hospital | [facility] | Mike Laurent, | | | 2015 | Encounter | MED CTR XRAY [address] | MD Josette ANDREWS | | | | | [place] | [place] | | | | | [place] [address] | [address] | | | | | [phone] | | | +--------+ + + + [...] + | FL PYELOGRAM | Routin | 07/14/2016 | | Results for this | | RETROGRADE | e | 10:12 PM | | procedure are in the | | | | PDT | | results section. | + +--------+ + + + documented in this encounter Results FL Pyelogram Retrograde (07/14/2016 10:12 PM PDT) + + | Specimen | + + | | + + + + + | Narrative | Performed At | + + + | FL PYELOGRAM RETROGRADE 07/14/2016 9:50 PM HISTORY: intra op. | [facility] | | COMPARISON: None. FINDINGS: Fluoroscopic images from retrograde | | | pyelogram were obtained. There is placement of a left ureteral | | | stent. IMPRESSION - Retrograde pyelogram. Please see the | | | operative report for further information. Dictated and Signed by: | | | Ovidio Hameed MD Electronically signed: 07/15/2016 8:47 AM | | + + + + + | Procedure Note | + + | Edouard, Rad Results In - 07/15/2016 8:50 AM PDT FL PYELOGRAM RETROGRADE 07/14/2016 9:50 | | PMHISTORY: intra op.COMPARISON: None.FINDINGS:Fluoroscopic images from retrograde | | pyelogram were obtained. There is placementof a left ureteral stent.IMPRESSION | | -Retrograde pyelogram.Please see the operative report for further information.Dictated | | and Signed by: Ovidio Hameed MD Electronically signed: 07/15/2016 8:47 AM | | | |FINDINGS: | |Fluoroscopic images from retrograde pyelogram were obtained. There is placement | |of a left ureteral stent. | | | |IMPRESSION - | |Retrograde pyelogram. | | | |Please see the operative report for further information. | | | |Dictated and Signed by: Ovidio Hameed MD | | Electronically signed: 07/15/2016 8:47 AM | + + + +---------+ + + | Performing | Address | City/State/Zipcode | Phone Number | | Organization | | | | + +---------+ + + | [facility] | | | | + +---------+ + + documented in this encounter Visit Diagnoses Not on filedocumented in this encounter"
--- OUTSIDE RECORDS SUMMARY | ~2019-10-06 | XMS | Encounter Summary ---
Demographics + + + | Address | [address] | | | [place] [address] | + + + | Home Phone | | + + + | Preferred Language | Unknown | + + + | Marital Status | | + + + | Anglican Affiliation | Unknown | + + + | Race | Unknown | + + + | Ethnic Group | Unknown | + + + Author + + + | Author | [facility] | | | and [place] | + + + | Organization | [facility] | | | and [place] | + + + | Address | Unknown | + + + | Phone | Unavailable | + + + Support + + + + + | Name | Relationship | Address | Phone | + + + + + | Jojo Clark | ECON | [place] | | | | | [address] | | + + + + + Care Team Providers + +------+ + | Care Enterprise Account Executive Name | Role | Phone | + +------+ + | Carolyn Roca | PCP | | + +------+ + Encounter Details +--------+ + + + + | Date | Type | Department | Care Team | Description | +--------+ + + + + | 07/23/ | Hospital | [facility] | [place], | Left ureteral | | 2016 | Encounter | MED CTR XRAY [address] | MD [address] | calculus | | | | [place] | [place], [place] | | | | | [place] [address] | [address] | | | | | [phone] | | | +--------+ + + + [...] calculus COMPARISON: CT abdomen 07/14/2016 FINDINGS: | . [facility] | | Left ureteral stent is present extending from left renal pelvis to | [facility] | | bladder. No high density [...] | Procedure Note | + + | Pierre Nunn Results In - 07/23/2016 10:49 AM PDT [...] | + + + + + | [facility] | [address] | [place] | [phone] | | [facility] | | [address] | | | - IMAGING | | | | + + + + + documented in this encounter Visit Diagnoses + + | Diagnosis | + + | Left ureteral calculus Calculus of ureter | + + documented in this encounter"
--- OUTSIDE RECORDS SUMMARY | ~2019-10-06 | XMS | Encounter Summary ---
Demographics + + + | Address | [address] | | | [place] [address] | + + + | Home Phone | | + + + | Preferred Language | Unknown | + + + | Marital Status | | + + + | Spiritism Affiliation | Unknown | + + + | Race | Unknown | + + + | Ethnic Group | Unknown | + + + Author + + + | Author | [facility] | | | and [place] | + + + | Organization | [facility] | | | and [place] | + + + | Address | Unknown | + + + | Phone | Unavailable | + + + Support + + + + + | Name | Relationship | Address | Phone | + + + + + | Jojo Clark | ECON | [place] | | | | | [address] | | + + + + + Care Team Providers + +------+ + | Care Data Lead Name | Role | Phone | + +------+ + | No, Physician | PCP | Unavailable | + +------+ + Encounter Details +--------+ + + + + | Date | Type | Department | Care Team | Description | +--------+ + + + + | 07/14/ | Hospital | [facility] | Mike Laurent, | | | 2015 | Encounter | MED CTR XRAY [address] | MD Josette ANDREWS | | | | | [place] | [place] | | | | | [place] [address] | [address] | | | | | [phone] | | | +--------+ + + + [...]
--- OUTSIDE RECORDS SUMMARY | ~2019-10-06 | XMS | Encounter Summary ---
Demographics + + + | Address | [address] | | | [place] [address] | + + + | Home Phone | | + + + | Preferred Language | Unknown | + + + | Marital Status | | + + + | Sikhism Affiliation | Unknown | + + + | Race | Unknown | + + + | Ethnic Group | Unknown | + + + Author + + + | Author | [facility] | | | and [place] | + + + | Organization | [facility] | | | and [place] | + + + | Address | Unknown | + + + | Phone | Unavailable | + + + Support + + + + + | Name | Relationship | Address | Phone | + + + + + | Jojo Clark | ECON | [place] | | | | | [address] | | + + + + + Care Team Providers + +------+ + | Care Supervisor Blast Furnace Name | Role | Phone | + [...] | | | | | | | CT | | | | | | | CYSTO/URETER | | | | | | | O/PYELOSCOPY | | | | | | | , CALCULUS | | | | | | | [place] CT | | | | | | | [...] + + + + | 07/28/ | Hospital | [facility] | Mike Laurent, | Ureteral calculus, | | 2016 | Encounter | MED CTR OR INTRA OP | [address] | left (Primary Dx) | | | | [address] | [place] | | | | | [place] | [address] | | | | | [address] | | | | | | [phone] | | | +--------+ + + + [...] time. Follow up: Call Dr Laurent's office ([phone]) to set up your follow-up appointment or [...] | 1.010, 1.015, | | | | [place], | | 1.020, 1.025 | | | [...] + | Diagnosis | + + | Ureteral calculus, left - Primary Calculus of ureter | + [...] 5:30 | | | | | ONCE, 07/28/16 at 1730, For 1 | | PM PST | | | | | dose, Post-op/Phase II | | | | | | + +-------+ +--------+---+---+ +---+---+ | | | +---+---+ documented in this encounter
--- OUTSIDE RECORDS SUMMARY | ~2019-10-06 | XMS | Clinical Summary ---
Demographics + + + | Address | [address] | | | [place] [address] | + + + | Home Phone | | + + + | Preferred Language | Unknown | + + + | Marital Status | | + + + | Church Affiliation | Unknown | + + + | Race | Unknown | + + + | Ethnic Group | Unknown | + + + Author + + + | Author | [facility] | | | and [place] | + + + | Organization | [facility] | | | and [place] | + + + | Address | Unknown | + + + | Phone | Unavailable | + + + Support + + + + + | Name | Relationship | Address | Phone | + + + + + | Jojo Clrak | ECON | [place], [place] | | | | | [address] | | + + + + + Care Team Providers + +------+ + | Care Zoning Engineer Name | Role | Phone | [...] | | + + + + + Plan of Treatment + + + + + | Health Maintenance | Due Date | Last Done | Comments | + + + + + | Vaccine: | | | | | Dtap/Tdap/Td (1 - | 7 | | | | Tdap) | | [...] 6fr 26cm | Stent | Left: | COOK | | 04/20/ | [id number] | | - [id number]: Qty: 1 | | Ureter | [employer] | | 2019 | / | | on 07/14/2016 by Anastasiia, | | | - MEKHI | | | /[id number] | | Mike Sarabia MD at [facility] | | | | | | 97 | | [facility] | | | | | | | + +-------+--------+ +--------+--------+--------+ Results Not on [...] | [employer] | MODA | [id number] | 07/14/ | [phone] | | Medica | | MEDICAID HMO [...] [address] | | | al/Fam | | 1985 | [phone] | [address] [place] | | | [place] | | | 9 (Home) | [address] | + +--------+ +--------+ + + Advance Directives + + + + + | Type | Date Recorded | Patient | Explanation | | | | Production Technician | | + + + + + | Power of | | | | | Policy Specialist | | | | + + + + + | Advance | 07/15/2016 | | | | Directive | 4:44 AM | | | + + + + + + + + + + | Code Status | Date | Date | Comments | | | Activated | Inactivated | | + + + + + | Full Code | 07/28/2016 | 07/28/2016 | | | | 5:09 PM | 8:04 PM | | + + + + + + + + +---+ | | | | | + + + +---+ | Full Code | 07/14/2016 | 07/16/2016 | | | | 11:13 PM | 4:59 PM | | + + + +---+
--- OUTSIDE RECORDS SUMMARY | ~2019-10-06 | XMS | Encounter Summary ---
Demographics + + + | Address | [address] | | | [place] [address] | + + + | Home Phone | | + + + | Preferred Language | Unknown | + + + | Marital Status | | + + + | Evangelical Affiliation | Unknown | + + + | Race | Unknown | + + + | Ethnic Group | Unknown | + + + Author + + + | Author | [facility] | | | and [place] | + + + | Organization | [facility] | | | and [place] | + + + | Address | Unknown | + + + | Phone | Unavailable | + + + Support + + + + + | Name | Relationship | Address | Phone | + + + + + | Jojo Clark | ECON | [place] | | | | | [address] | | + + + + + Care Team Providers + +------+ + | Care Installer Apprentice Name | Role | Phone | + [...] | | | | | | | [place] | | | | | | | [...] + + | 07/14/ | Surgery | [facility] | Mike Laurent, | Cystoscopy w/ Left | | 2016 | | MED CTR OR INTRA OP | MD Josette ANDREWS | Ureteral Stent | | | | [address] | [place], [place] | Placement | | | | [place], [place] | [address] | | | | | [address] | | | | | | [phone] | | | +--------+---------+ + + + [...] might be different fro m the original. [facility] Urology Discharge Summary Patient Name: Kelsie Altman [...] time. Follow up: Call Dr Laurent's office ([phone]) to set up your follow-up appointment or [...] for 8 hours or increasing bladder pressure 8801-5391 [employer]. [address] [place] [address]. All righ ts reserved. This information is [...] + | [facility] | [address] | [place] | [phone] | | [facility] | | [address] | | | - LABORATORY | | [...] mL/min/1.73m2 | [facility] | | | GABONESE | RATE,ESTIMATED | | MEDICAL | | | | mL/min/1.48t2Sqso than | | CENTER - | | [...] [address] | [place] | [phone] | | [facility] | | [address] | | | - LABORATORY | | [...]
--- OUTSIDE RECORDS SUMMARY | ~2019-10-06 | XMS | Encounter Summary ---
Demographics + + + | Address | [address] | | | [place] [address] | + + + | Home Phone | | + + + | Preferred Language | Unknown | + + + | Marital Status | | + + + | Yazidism Affiliation | Unknown | + + + | Race | Unknown | + + + | Ethnic Group | Unknown | + + + Author + + + | Author | [facility] | | | and [place] | + + + | Organization | [facility] | | | and [place] | + + + | Address | Unknown | + + + | Phone | Unavailable | + + + Support + + + + + | Name | Relationship | Address | Phone | + + + + + | Jojo Clark | ECON | [place] | | | | | [address] | | + + + + + Care Team Providers + +------+ + | Care Banquet Set Up Person Name | Role | Phone | + +------+ + | Carolyn Roca | PCP | | + +------+ + Encounter Details +--------+ + + + + | Date | Type | Department | Care Team | Description | +--------+ + + + + | 07/23/ | Hospital | [facility] | Moneta, Diogenes, | Left ureteral | | 2016 | Encounter | MED CTR XRAY [address] | MD [address] | calculus | | | | [place] | [place], [place] | | | | | [place] [address] | [address] | | | | | [phone] | | | +--------+ + + + [...] extending from left renal pelvis to | [facility] | | bladder. No [...] | + + + + + | [facility] | [address] | [place] | [phone] | | [facility] | | [address] | | | - IMAGING | | | | + + + + + documented in this encounter Visit Diagnoses + + | Diagnosis | + + | Left ureteral calculus Calculus of ureter | + + documented in this encounter"
--- OUTSIDE RECORDS SUMMARY | ~2019-10-06 | XMS | Encounter Summary ---
Demographics + + + | Address | [address] | | | [place] [address] | + + + | Home Phone | | + + + | Preferred Language | Unknown | + + + | Marital Status | | + + + | Christian Affiliation | Unknown | + + + [...] [place] | | | | | [address] | | + + + + + Care Team Providers + +------+ + | Care Boat Dispatcher Name | Role | Phone | + [...] | | | | | | | [place] | | | | | | | CYSTO/URETER | | | | | | | O/PYELOSCOPY | | | | | | | , CALCULUS | | | | | | | [place] | | | | | | | [...] | | | | | [address] | [address] [place] | | | | | [place] | [place] [address] | | | | | [address] | | | | | | [phone] | | | | | | | William Potts MD | | | | | | [address] | | | | | | [place] | | | | | | [address] | | | | | | | [...] +----+---+ + + | | 1 | Letart | | | | 5 | 43-degrees [...] +----+---+ + + | | 1 | [place] off | | | | 6 | [...] 1735 by | | eral | Forearm; gjtc-ftd-lzogfk catheter | Elizabeth Sutherland RN | Katia [...] PST | | | | | Minutes, PARTITION NOTCHER, Starting Tue | | | | | [...]
--- OUTSIDE RECORDS SUMMARY | ~2019-10-06 | XMS | Encounter Summary ---
Demographics + + + | Address | [address] | | | [place] [address] | + + + | Home Phone | | + + + | Preferred Language | Unknown | + + + | Marital Status | | + + + | Oriental Orthodox Affiliation | Unknown | + + + | Race | Unknown | + + + | Ethnic Group | Unknown | + + + Author + + + | Author | [facility] | | | and [place] | + + + | Organization | [facility] | | | and [place] | + + + | Address | Unknown | + + + | Phone | Unavailable | + + + Support + + + + + | Name | Relationship | Address | Phone | + + + + + | Jojo Clark | ECON | [place] | | | | | [address] | | + + + + + Care Team Providers + +------+ + | Care Copier Technician Name | Role | Phone | + [...] | | | | | | | [place] | | | | | | | CYSTO/URETER | | | | | | | O/PYELOSCOPY | | | | | | | , CALCULUS | | | | | | | [place] | | | | | | | [...] + + | 07/28/ | Hospital | [facility] | Mike Laurent, | | | 2016 | Encounter | MED CTR XRAY [address] | MD Josette ANDREWS | | | | | [place] | [place] | | | | | [place] [address] | [address] | | | | | [phone] | | | +--------+ + + + [...]
--- OUTSIDE RECORDS SUMMARY | ~2019-10-06 | XMS | Encounter Summary ---
Demographics + + + | Address | [address] | | | [place] [address] | + + + | Home Phone | | + + + | Preferred Language | Unknown | + + + | Marital Status | | + + + | Mandaeism Affiliation | Unknown | + + + | Race | Unknown | + + + | Ethnic Group | Unknown | + + + Author + + + | Author | [facility] | | | and [place] | + + + | Organization | [facility] | | | and [place] | + + + | Address | Unknown | + + + | Phone | Unavailable | + + + Support + + + + + | Name | Relationship | Address | Phone | + + + + + | Jojo Clark | ECON | [place] | | | | | [address] | | + + + + + Care Team Providers + +------+ + | Care Flatwork Tier Name | Role | Phone | + [...] | | | | | | | [place] | | | | | | | CYSTO/URETER | | | | | | | O/PYELOSCOPY | | | | | | | , CALCULUS | | | | | | | [place] | | | | | | | [...] + + | 07/28/ | Hospital | [facility] | Mike Laurent, | Ureteral calculus, | | 2016 | Encounter | MED CTR OR INTRA OP | [address] | left (Primary Dx) | | | | [address] | [place] | | | | | [place] | [address] | | | | | [address] | | | | | | [phone] | | | +--------+ + + + [...] time. Follow up: Call Dr Laurent's office ([phone]) to set up your follow-up appointment or [...] | 1.010, 1.015, | | | | [place], | | 1.020, 1.025 | | | [...]
--- OUTSIDE RECORDS SUMMARY | ~2019-10-06 | XMS | Encounter Summary ---
Demographics + + + | Address | [address] | | | [place] [address] | + + + | Home Phone | | + + + | Preferred Language | Unknown | + + + | Marital Status | | + + + | Jain Affiliation | Unknown | + + + | Race | Unknown | + + + | Ethnic Group | Unknown | + + + Author + + + | Author | [facility] | | | and [place] | + + + | Organization | [facility] | | | and [place] | + + + | Address | Unknown | + + + | Phone | Unavailable | + + + Support + + + + + | Name | Relationship | Address | Phone | + + + + + | Jojo Clark | ECON | [place] | | | | | [address] | | + + + + + Care Team Providers + +------+ + | Care Musical Instrument Maker Or Repairer Name | Role | Phone | + [...] [place] | | | | | [address] | [address] | | | | | [phone] | | | +--------+ + + + [...]
--- OUTSIDE RECORDS SUMMARY | ~2019-10-06 | XMS | Encounter Summary ---
Demographics + + + | Address | [address] | | | [place] [address] | + + + | Home Phone | | + + + | Preferred Language | Unknown | + + + | Marital Status | | + + + | Hinduism Affiliation | Unknown | + + + | Race | Unknown | + + + | Ethnic Group | Unknown | + + + Author + + + | Author | [facility] | | | and [place] | + + + | Organization | [facility] | | | and [place] | + + + | Address | Unknown | + + + | Phone | Unavailable | + + + Support + + + + + | Name | Relationship | Address | Phone | + + + + + | Jojo Clark | ECON | [place] | | | | | [address] | | + + + + + Care Team Providers + +------+ + | Care Network Support Name | Role | Phone | + +------+ + | Carolyn Roca | PCP | | + +------+ + Reason for Visit +--------+ + | Reason | Comments | +--------+ + | Other | To Speak with the nurse | +--------+ + Encounter Details +--------+ + + + + | Date | Type | Department | Care Team | Description | +--------+ + + + + | 07/27/ | Telephone | [facility] | Mike Laurent, | Other (To Speak with | | 2015 | | [address] | MD [address] | the nurse) | | | | [place] | [place] | | | | | [address] | [address] | | | | | [phone] | | | +--------+ + + + [...]
--- OUTSIDE RECORDS SUMMARY | ~2019-10-06 | XMS | Encounter Summary ---
Demographics + + + | Address | [address] | | | [place] [address] | + + + | Home Phone | | + + + | Preferred Language | Unknown | + + + | Marital Status | | + + + | Christian Affiliation | Unknown | + + + | Race | Unknown | + + + | Ethnic Group | Unknown | + + + Author + + + | Author | [facility] | | | and [place] | + + + | Organization | [facility] | | | and [place] | + + + | Address | Unknown | + + + | Phone | Unavailable | + + + Support + + + + + | Name | Relationship | Address | Phone | + + + + + | Jojo Clark | ECON | [place] | | | | | [address] | | + + + + + Care Team Providers + +------+ + | Care Chute Tapper Name | Role | Phone | + [...] | | | | | | | [place] | | | | | | | CYSTO/URETER | | | | | | | O/PYELOSCOPY | | | | | | | , CALCULUS | | | | | | | [place] | | | | | | | [...] + + | 07/28/ | Hospital | [facility] | Mike Laurent, | | | 2016 | Encounter | MED CTR XRAY [address] | MD Josette ANDREWS | | | | | [place] | [place] | | | | | [place] [address] | [address] | | | | | [phone] | | | +--------+ + + + [...]
--- OUTSIDE RECORDS SUMMARY | ~2019-10-06 | XMS | Clinical Summary ---
Demographics + + + | Address | [address] | | | [place] [address] | + + + | Home Phone | | + + + | Preferred Language | Unknown | + + + | Marital Status | | + + + | Voodoo Affiliation | Unknown | + + + | Race | Unknown | + + + | Ethnic Group | Unknown | + + + Author + + + | Author | [facility] | | | and [place] | + + + | Organization | [facility] | | | and [place] | + + + | Address | Unknown | + + + | Phone | Unavailable | + + + Support + + + + + | Name | Relationship | Address | Phone | + + + + + | Jojo Clark | ECON | [place], [place] | | | | | [address] | | + + + + + Care Team Providers + +------+ + | Care Aerial Gunner Superintendent Name | Role | Phone | + [...] Left: | COOK | | 04/20/ | [id number] | | - [id number]: Qty: 1 | | Ureter | [employer] [employer] | | 2019 | / | | on 07/14/2016 by Anastasiia, | | | - MEKHI | | | /[id number] | | Mike Sarabia MD at [facility] | | | | | | 97 | | [facility] | | | | | | | [...] | [employer] | MODA | [id number] | 07/14/ | [phone] | | Medica | | MEDICAID HMO [...] | | al/Fam | | 1985 | [phone] | [address] [place] | | | [place] | | | [address] (Home) | [address] | + +--------+ +--------+ + + Advance Directives + + + + + | Type | Date Recorded | Patient | Explanation | | | | Technology Officer | | + + + + + | Power of | | | | | Dog Bather | | | | + + + [...]
--- OUTSIDE RECORDS SUMMARY | ~2019-10-06 | XMS | Encounter Summary ---
Demographics + + + | Address | [address] | | | [place] [address] | + + + | Home Phone | | + + + | Preferred Language | Unknown | + + + | Marital Status | | + + + | Christian Affiliation | Unknown | + + + | Race | Unknown | + + + | Ethnic Group | Unknown | + + + Author + + + | Author | [facility] | | | and [place] | + + + | Organization | [facility] | | | and [place] | + + + | Address | Unknown | + + + | Phone | Unavailable | + + + Support + + + + + | Name | Relationship | Address | Phone | + + + + + | Jojo Clark | ECON | [place], [place] | | | | | [address] | | + + + + + Care Team Providers + +------+ + | Care Infantry Operations Specialist Name | Role | Phone | + +------+ + | No, Physician | PCP | Unavailable | + +------+ + Encounter Details +--------+ + + + + | Date | Type | Department | Care Team | Description | +--------+ + + + + | 07/22/ | Orders Only | [facility] | Mike Laurent, | Left ureteral | | 2016 | | [address] | MD [address] | calculus (Primary | | | | [place], [place] | [place], [place] | Dx) | | | | [address] | [address] | | | | | [phone] | | | +--------+ + + + [...] calculus COMPARISON: CT abdomen 07/14/2016 FINDINGS: | [facility] | | Left ureteral stent is present extending from left renal pelvis to | [facility] | | bladder. No high density [...] system stones. Dictated and Signed by: Jared Roca, | | | Electronically signed: 07/23/2016 10:46 [...] | [facility] | [address] | [place], [place] | [phone] | | [facility] | | [address] | | | - IMAGING | | | | + + + + + documented in this encounter Visit Diagnoses + + | Diagnosis | + + | Left ureteral calculus - Primary Calculus of ureter | + + documented in this encounter"
--- OUTSIDE RECORDS SUMMARY | ~2019-10-06 | XMS | Encounter Summary ---
Demographics + + + | Address | [address] | | | [place] [address] | + + + | Home Phone | | + + + | Preferred Language | Unknown | + + + | Marital Status | | + + + | Samaritan Affiliation | Unknown | + + + | Race | Unknown | + + + | Ethnic Group | Unknown | + + + Author + + + | Author | [facility] | | | and [place] | + + + | Organization | [facility] | | | and [place] | + + + | Address | Unknown | + + + | Phone | Unavailable | + + + Support + + + + + | Name | Relationship | Address | Phone | + + + + + | Jojo Clark | ECON | [place] | | | | | [address] | | + + + + + Care Team Providers + +------+ + | Care Retail Service Specialist Name | Role | Phone | [...] [place] | | | | | [address] | [address] | | | | | [phone] | | | +--------+ + + + [...]
--- OUTSIDE RECORDS SUMMARY | ~2019-10-06 | XMS | Encounter Summary ---
Demographics + + + | Address | [address] | | | [place] [address] | + + + | Home Phone | | + + + | Preferred Language | Unknown | + + + | Marital Status | | + + + | Rastafari Affiliation | Unknown | + + + | Race | Unknown | + + + | Ethnic Group | Unknown | + + + Author + + + | Author | [facility] | | | and [place] | + + + | Organization | [facility] | | | and [place] | + + + | Address | Unknown | + + + | Phone | Unavailable | + + + Support + + + + + | Name | Relationship | Address | Phone | + + + + + | Jojo Clark | ECON | [place] | | | | | [address] | | + + + + + Care Team Providers + +------+ + | Care Lead Accountant Name | Role | Phone | + [...] | | | | | | | [place] | | | | | | | [...] + + | 07/14/ | Hospital | [facility] | Bud, | Acute abdominal pain | | 2016 - | Encounter | MED CTR SURGICAL | Scott Sarabia MD [address] | in left flank | | | | [address] [place] | [address] [place] | (Primary Dx); | | 07/16/ | | [place] [address] | [place] [address] | Ureterolithiasis; | | 2015 | | [phone] | [phone] | Intractable left | | | | | | upper quadrant | | | | | Blake Moreno S, | abdominal pain; | | | | | [address] | Acute | | | | | [place], [place] | pyelonephritis; | | | | | [address] Mike Laurent | Sepsis, due to | | | | | MD Cornell [address] | unspecified organism | | | | | [address]VE [place] | ([facility]); Ureteral | | | | | [address] [...] might be different fro m the original. [facility] Urology Discharge Summary Patient Name: [...] time. Follow up: Call Dr Laurent's office ([phone]) to set up your follow-up appointment or [...] for 8 hours or increasing bladder pressure 6636-4915 [employer]. [address] [place] [address]. All righ ts reserved. This information is [...] [address] | [place] | [phone] | | [facility] | | [address] | | | - LABORATORY | | [...] mL/min/1.73m2 | [facility] | | | [place] | RATE,ESTIMATED | | MEDICAL | | | | mL/min/1.61y3Xhpm than | | CENTER - | | [...] [address] | [place] | [phone] | | [facility] | | [address] | | | - LABORATORY | | [...] | | | | | ineffective use [place] 10/325 if | | | | | [...]
--- OUTSIDE RECORDS SUMMARY | ~2019-10-06 | XMS | Encounter Summary ---
Demographics + + + | Address | [address] | | | [place] [address] | + + + | Home Phone | | + + + | Preferred Language | Unknown | + + + | Marital Status | | + + + | Buddhist Affiliation | Unknown | + + + [...] [place], [place] | | | | | [address] | | + + + + + Care Team Providers + +------+ + | Care Engineering Consultant Name | Role | Phone | + [...] | calculus (Primary | | | | [place], [place] | [place], [place] | Dx) | | | | [address] | [address] | | | | | [phone] | | | +--------+ + + + [...] calculus COMPARISON: CT abdomen 07/14/2016 FINDINGS: | [facility] | | Left ureteral stent is present extending from left renal pelvis to | [facility] | | bladder. No high density [...] ST. | [address] | [place], [place] | [phone] | | [facility] | | [address] | | | - IMAGING | | | | + + + + + documented in this encounter Visit Diagnoses + + | Diagnosis | + + | Left ureteral calculus - Primary Calculus of ureter | + + documented in this encounter"
--- OUTSIDE RECORDS SUMMARY | ~2019-10-06 | XMS | Encounter Summary ---
Demographics + + + | Address | [address] | | | [place] [address] | + + + | Home Phone | | + + + | Preferred Language | Unknown | + + + | Marital Status | | + + + | Methodist Affiliation | Unknown | + + + | Race | Unknown | + + + | Ethnic Group | Unknown | + + + Author + + + | Author | [facility] | | | and [place] | + + + | Organization | [facility] | | | and [place] | + + + | Address | Unknown | + + + | Phone | Unavailable | + + + Support + + + + + | Name | Relationship | Address | Phone | + + + + + | Jojo Clark | ECON | [place] | | | | | [address] | | + + + + + Care Team Providers + +------+ + | Care Picture Painter Name | Role | Phone | + [...] [place] | | | | | [address] | [address] | | | | | [phone] | | | +--------+ + + + [...]
--- OUTSIDE RECORDS SUMMARY | ~2019-10-06 | XMS | Encounter Summary ---
Demographics + + + | Address | [address] | | | [place] [address] | + + + | Home Phone | | + + + | Preferred Language | Unknown | + + + | Marital Status | | + + + | Scientology Affiliation | Unknown | + + + | Race | Unknown | + + + | Ethnic Group | Unknown | + + + Author + + + | Author | [facility] | | | and [place] | + + + | Organization | [facility] | | | and [place] | + + + | Address | Unknown | + + + | Phone | Unavailable | + + + Support + + + + + | Name | Relationship | Address | Phone | + + + + + | Jojo Clark | ECON | [place] | | | | | [address] | | + + + + + Care Team Providers + +------+ + | Care Research Support Specialist Name | Role | Phone | [...] | | | | | | | [place] | | | | | | | CYSTO/URETER | | | | | | | O/PYELOSCOPY | | | | | | | , CALCULUS | | | | | | | [place] | | | | | | | [...] + + | 07/28/ | [facility] | [facility] | Mike Laurent, | Cystoscopy, Left | | 2015 | | MED CTR OR INTRA OP | MD Josette ANDREWS | Ureteroscopy | | | | [address] | [place] | | | | | [place] | [address] | | | | | [address] | | | | | | [phone] | | | +--------+---------+ + + + [...] time. Follow up: Call Dr Laurent's office ([phone]) to set up your follow-up appointment or [...] | 1.010, 1.015, | | | | [place], | | 1.020, 1.025 | | | [...]
--- OUTSIDE RECORDS SUMMARY | ~2019-10-06 | XMS | Encounter Summary ---
Demographics + + + | Address | [address] | | | [place] [address] | + + + | Home Phone | | + + + | Preferred Language | Unknown | + + + | Marital Status | | + + + | Jew Affiliation | Unknown | + + + | Race | Unknown | + + + | Ethnic Group | Unknown | + + + Author + + + | Author | [facility] | | | and [place] | + + + | Organization | [facility] | | | and [place] | + + + | Address | Unknown | + + + | Phone | Unavailable | + + + Support + + + + + | Name | Relationship | Address | Phone | + + + + + | Jojo Clark | ECON | [place] | | | | | [address] | | + + + + + Care Team Providers + +------+ + | Care Contract Associate Manager Name | Role | Phone | [...] + + | 07/27/ | Telephone | [facility] | Mike Laurent, | Other (To Speak with | | 2015 | | [address] | MD [address] | the nurse) | | | | [place] | [place] | | | | | [address] | [address] | | | | | [phone] | | | +--------+ + + + [...]
[~2019-10-06 07:00] MED LIST changes: +CHLORPROMAZINE50 MG PO; +HYDROXYZINE HCL50 MG PO; +PRAZOSIN HCL2 MG PO; +VENLAFAXINE HC150 MG PO
== END 2019-10-06 08:10 | disposition home or self-care (01) ==
LOC: ED 07:00
DX: J02.9 Acute pharyngitis, unspecified (principal); F41.9 Anxiety disorder, unspecified; F32.9 Major depressive disorder, single episode, unspecified; F17.200 Nicotine dependence, unspecified, uncomplicated; Z88.0 Allergy status to penicillin; Z88.2 Allergy status to sulfonamides; Z79.899 Other long term (current) drug therapy
CPT/HCPCS: 99283; A9270

== ENCOUNTER 2020-06-11 15:46 | Emergency (ER) | payer OTHER ==
[~2020-06-11] VITALS: Ht 157.5 cm; Wt 90.7 kg
--- OUTSIDE RECORDS SUMMARY | ~2020-06-11 | XMS | Encounter Summary ---
Demographics + + + | Address | [address] | | | [place] [address] | + + + | Home Phone | | + + + | Preferred Language | Unknown | + + + | Marital Status | | + + + | Muslim Affiliation | Unknown | + + + | Race | White | + + + | Ethnic Group | Not or | + + + Author + + + | Author | [facility] | | | and [place] | + + + | Organization | [facility] | | | and [place] | + + + | Address | Unknown | + + + | Phone | Unavailable | + + + Support + + + + + | Name | Relationship | Address | Phone | + + + + + | Jojo Clark | ECON | [place] | | | | | [address] | | + + + + + Care Team Providers + +------+ + | Care Fiberglass Machine Operator Name | Role | Phone | + +------+ + | Carolyn Roca | PCP | | + +------+ + Encounter Details +--------+ + + + + | Date | Type | Department | Care Team | Description | +--------+ + + + + | 07/23/ | Hospital | [facility] | Mike Laurent, | Left ureteral | | 2016 | Encounter | MED CTR XRAY [address] | [address] | calculus | | | | [place] | [place], [place] | | | | | [place] [address] | [address] | | | | | [phone] | | | +--------+ + + + + Social History + +-------+ +--------+------+ | Tobacco Use | Types | Packs/Day | Years | Date | | | | | Used | | + +-------+ +--------+------+ | Current Every Day | | 2 | | | | Smoker | | | | | + +-------+ +--------+------+ + + +---------+ + | Alcohol Use | Drinks/Week | oz/Week | Comments | + + +---------+ + | No | | | | + + +---------+ + + + + | Sex Assigned at | Date Recorded | | | | + + + | Not on file | | + + + documented as of this encounter Functional Status + + + + | Functional Status | Response | Date of Assessment | + + + + | Are you deaf or do you have serious | No | 07/16/2016 | | difficulty hearing? | | | + + + + | Are you blind or do you have serious | No | 07/16/2016 | | difficulty seeing, even when wearing | | | | glasses? | | | + + + + | Do you have serious difficulty walking or | No | 07/16/2016 | | climbing stairs? (5 years old or older) | | | + + + + | Do you have difficulty dressing or bathing? | No | 07/16/2016 | | (5 years old or older) | | | + + + + | Because of a physical, mental, or emotional | No | 07/16/2016 | | condition, do you have difficulty doing | | | | errands alone such as visiting a doctor's | | | | office or shopping? [15 years old or | | | | older)] | | | + + + + + + + + | Cognitive Status | Response | Date of Assessment | + + + + | Because of a physical, mental, or emotional | No | 07/16/2016 | | condition, do you have serious difficulty | | | | concentrating, remembering, or making | | | | decisions? (5 years old or older) | | | + + + + documented as of this encounter Medications at Time of Discharge + + + +---------+ + + | Medication | Sig | Dispensed | Refills | Start | End Date | | | | | | Date | | + + + +---------+ + + | FIBER PO | Take 2 each by mouth | | 0 | | | | | Daily. Fiber Well | | | | | | | Fit Gummies | | | | | + + + +---------+ + + | | Take 1 tablet by | 20 | 0 | 07/28/20 | | | HYDROcodone-acetamin | mouth every 4 hours | tablet | | 16 | | | ophen (NORCO) 5-325 | as needed. | | | | | | mg per tablet | | | | | | + + + +---------+ + + | ibuprofen (ADVIL, | Take 400 mg by mouth | | 0 | | | | MOTRIN) 200 mg | every 6 hours as | | | | | | tablet | needed for Pain. | | | | | + + + +---------+ + + | nitrofurantoin | Take 1 capsule by | 20 | 0 | 07/28/20 | | | (MACRODANTIN) 100 MG | mouth 4 times daily | capsule | | 16 | 6 | | capsuleIndications: | for 5 days. | | | | | | Uncomplicated | Indications: Simple | | | | | | Urinary Tract | Infection of the | | | | | | Infection | Urinary Tract | | | | | + + + +---------+ + + documented as of this encounter Plan of Treatment Not on filedocumented as of this encounter Procedures + +--------+ + + + | Procedure Name | Priori | Date/Time | Associated Diagnosis | Comments | | | ty | | | | + +--------+ + + + | XR ABDOMEN AP | Routin | 07/23/2016 | Left ureteral | Results for this | | | e | 8:42 AM | calculus | procedure are in the | | | | PDT | | results section. | + +--------+ + + + documented in this encounter Results XR Abdomen AP (07/23/2016 8:42 AM PDT) + + | Specimen | + + | | + + + + + | Narrative | Performed At | + + + | SUPINE ABDOMEN: 07/23/2016 8:27 AM CLINICAL HISTORY: Left | [facility] | | ureteral calculus COMPARISON: CT abdomen 07/14/2016 FINDINGS: | [facility] | | Left ureteral stent is present extending from left renal pelvis to | [facility] | | bladder. No high density foci over the left kidney or course of the | - IMAGING | | stent. No right-sided stones suggested. Small phleboliths on the | | | right side of the pelvis. Stable linear metallic density projecting | | | over the upper sacrum, previously shown to be in the anterior | | | abdominal skin. Cholecystectomy clips are also noted. Intestinal gas | | | and stool pattern is normal. No bony abnormalities. IMPRESSION - | | | Satisfactory position left ureteral stent. No radiopaque renal | | | collecting system stones. Dictated and Signed by: Jared Roca | | | Electronically signed: 07/23/2016 10:46 AM | | + + + + + | Procedure Note | + + | Edouard, Rad Results In - 07/23/2016 10:49 AM PDT SUPINE ABDOMEN: 07/23/2016 8:27 AM | | | | CLINICAL HISTORY: Left ureteral calculus | | | | COMPARISON: CT abdomen 07/14/2016 | | | | FINDINGS: Left ureteral stent is present extending from left renal pelvis to | | bladder. No high density foci over the left kidney or course of the stent. No | | right-sided stones suggested. Small phleboliths on the right side of the pelvis. | | Stable linear metallic density projecting over the upper sacrum, previously | | shown to be in the anterior abdominal skin. Cholecystectomy clips are also | | noted. Intestinal gas and stool pattern is normal. No bony abnormalities. | | | | IMPRESSION - Satisfactory position left ureteral stent. No radiopaque renal | | collecting system stones. | | | | Dictated and Signed by: Jared Roca MD | | Electronically signed: 07/23/2016 10:46 AM | + + + + + + + | Performing | Address | City/State/Zipcode | Phone Number | | Organization | | | | + + + + + | [facility] | [address] | [place] | [phone] | | [facility] | | [address] | | | - IMAGING | | | | + + + + + documented in this encounter Visit Diagnoses + + | Diagnosis | + + | Left ureteral calculus Calculus of ureter | + + documented in this encounter"
--- OUTSIDE RECORDS SUMMARY | ~2020-06-11 | XMS | Encounter Summary ---
Demographics + + + | Address | [address] | | | [place] [address] | + + + | Home Phone | | + + + | Preferred Language | Unknown | + + + | Marital Status | | + + + | Congregation Affiliation | Unknown | + + + | Race | White | + + + | Ethnic Group | Not or | + + + Author + + + | Author | [facility] | | | and [place] | + + + | Organization | [facility] | | | and [place] | + + + | Address | Unknown | + + + | Phone | Unavailable | + + + Support + + + + + | Name | Relationship | Address | Phone | + + + + + | Jojo Clark | ECON | [place] | | | | | [address] | | + + + + + Care Team Providers + +------+ + | Care Forensic Investigator Name | Role | Phone | + +------+ + | No, Physician | PCP | Unavailable | + +------+ + Encounter Details +--------+ + + + + | Date | Type | Department | Care Team | Description | +--------+ + + + + | 07/22/ | Orders Only | [facility] | Miek Laurent, | Left ureteral | | 2016 | | [address] | MD [address] | calculus (Primary | | | | [place], [place] | [place], [place] | Dx) | | | | [address] | [address] | | | | | [phone] | | | +--------+ + + + [...] Not on filedocumented as of this encounter Results XR Abdomen AP (07/23/2016 8:42 AM PDT) + + | Specimen | + + | | + + + + + | Narrative | Performed At | + + + | SUPINE ABDOMEN: 07/23/2016 8:27 AM CLINICAL HISTORY: Left | [facility] | | ureteral calculus COMPARISON: CT abdomen 07/14/2016 FINDINGS: | [facility] | | Left ureteral stent is present extending from left renal pelvis to | [facility] | | bladder. No high density foci [...] | + + + + + | [facility] | [address] | [place], [place] | [phone] | | [facility] | | [address] | | | - IMAGING | | | | + + + + + documented in this encounter Visit Diagnoses + + | Diagnosis | + + | Left ureteral calculus - Primary Calculus of ureter | + + documented in this encounter"
--- OUTSIDE RECORDS SUMMARY | ~2020-06-11 | XMS | Encounter Summary ---
Demographics + + + | Address | [address] | | | [place] [address] | + + + | Home Phone | | + + + | Preferred Language | Unknown | + + + | Marital Status | | + + + | Restorationism Affiliation | Unknown | + + + | Race | White | + + + | Ethnic Group | Not or | + + + Author + + + | Author | [facility] | | | and [place] | + + + | Organization | [facility] | | | and [place] | + + + | Address | Unknown | + + + | Phone | Unavailable | + + + Support + + + + + | Name | Relationship | Address | Phone | + + + + + | Jojo Clark | ECON | [place] | | | | | [address] | | + + + + + Care Team Providers + +------+ + | Care Travel Money Advisor Name | Role | Phone | + [...] | | | | | | | [place] | | | | | | | CYSTO/URETER | | | | | | | O/PYELOSCOPY | | | | | | | , CALCULUS | | | | | | | [place] | | | | | | | [...] | | | | | [address] | [address] [place] | | | | | [place] | [place] [address] | | | | | [address] | | | | | | [phone] | | | | | | | William Potts MD | | | | | | [address] | | | | | | [place], [place] | | | | | | [address] | | | | | | | [...] +----+---+ + + | | 1 | [place] | | | | 5 | 43-degrees [...] +----+---+ + + | | 1 | [place] off | | | | 6 | [...] [address]35 by | | eral | Forearm; kxrt-dis-sglfdk catheter | Elizabeth Sutherland, ESA | Katia [place] RN | | IV [...] + + documented as of this encounter [place] Notes Anesthesia Postprocedure Evaluation - Nam Clark II, MD - 07/28/2016 4:51 PM PSTF ormatting of this note might be different from the original. ANESTHESIA POSTANESTHESIA EVALUATION Kelsie Altman 31 y.o. female 1985 [id number] Procedure(s) Cystoscopy, Left Ureteroscopy (Left Ureter) Cooperates? Yes Mental Status Performs simple tasks. Respiratory Satisfactory - Airway patent (self maintained). Cardiovascular Satisfactory Blood pressure and heart rate acceptable Temperature Satisfactory Pain Satisfactory N/V Control Satisfactory Hydration Satisfactory No signs of dehydration Complications None apparent Filed Vitals: 07/28/16 1300 07/28/16 1648 BP: 112/72 80/53 Pulse: 90 70 Temp: 36 C (96.8 F) 36.9 C (98.4 F) Resp: 18 SpO2: 99% 92% Electronically signed by Nam Clark II, MD 07/28/2016 16:51 [facility] nesthesia Pro cedure Notes - Nam Clark II, MD - 07/28/2016 4:10 PM PSTAssociated Order(s): ANE AIRWAY NOTEAnesthesia Airway Placement Preprocedure check: patient identified, oxygen, airway assessed, patient reassessment prior to induction, airway equipment checked and suction Rapid Sequence Induction: no Mask ventilation: easy Airway type: laryngeal mask Size: 3 Cuffed: cuffed Route, reference point: center of mouth Tube secured with: adhesive tape Trauma: none Tube placement verification: bilateral chest rise, equal bilateral breath sounds and carbon dioxide detection Performing provider: NAM CLARK II Electronically Signed by: Nam Clark II, MD ESig date/time : 07/28/2016 16:10 nesthesia Pre procedure Evaluation - Nam Clark II, MD - 07/28/2016 3:38 PM PSTFormatting of thi s note might be different from the original. ANESTHESIA PREANESTHESIA EVALUATION Kelsie Altman 31 y.o. female 1985 [id number] Procedure(s): Cystoscopy, Left Ureteroscopic Stone Extraction, Possible Left Ureteral Stent Replacement (Left Ureter) Medical history, anesthesia, medications, allergy, NPO status verified histories reviewed. Review of Systems / Med History Pulmonary (+) smoking history Psychology (+) anxiety, post-traumatic stress disorder Renal (+) pyelonephritis Gastrointestinal/Hepatic (+) hepatitis: type C Physical Exam Airway MP II, TM >3 FB, Mouth opening >2 FB. Neck: full ROM, extends >30 degrees. Jaw protrus ion normal. CV Rhythm regular. Rate normal. Anesthesia Plan ASA 2 Type: General. Induction: Intravenous. Potential problems: None anticipated. Monitors: Standard ASA monitors. Consent statement: . Consenting person understands and agrees to proceed. Electronically Signed by: Nam Clark II, MD ESig date/time: 07/28/2016 15:38 documented in this encounter Plan of Treatment Not on [...] | Intravenous, PRN, Starting Tue | | PM PST | | | [...] PST | | | | | Minutes, MANAGER NURSING, Starting Tue | | | | | [...] | | +-------+ +-------+---+---+ | Given | 07/28/20 | 40 mg | | | | | 16 3:54 | | | | | | PM PST | | | | +-------+ +-------+---+---+ +---+---+ | | | +---+---+ documented in this encounter"
--- OUTSIDE RECORDS SUMMARY | ~2020-06-11 | XMS | Encounter Summary ---
Demographics + + + | Address | [address] | | | [place] [address] | + + + | Home Phone | | + + + | Preferred Language | Unknown | + + + | Marital Status | | + + + | Mu-Ism Affiliation | Unknown | + + + | Race | White | + + + | Ethnic Group | Not or | + + + Author + + + | Author | [facility] | | | and [place] | + + + | Organization | [facility] | | | and [place] | + + + | Address | Unknown | + + + | Phone | Unavailable | + + + Support + + + + + | Name | Relationship | Address | Phone | + + + + + | Jojo Clark | ECON | [place] | | | | | [address] | | + + + + + Care Team Providers + +------+ + | Care Husbandry Person Name | Role | Phone | + [...] [place] | | | | | [address] | [address] | | | | | [phone] | | | +--------+ + + + [...]
--- OUTSIDE RECORDS SUMMARY | ~2020-06-11 | XMS | Encounter Summary ---
Demographics + + + | Address | [address] | | | [place] [address] | + + + | Home Phone | | + + + | Preferred Language | Unknown | + + + | Marital Status | | + + + | Faith Affiliation | Unknown | + + + | Race | White | + + + | Ethnic Group | Not or | + + + Author + + + | Author | [facility] | | | and [place] | + + + | Organization | [facility] | | | and [place] | + + + | Address | Unknown | + + + | Phone | Unavailable | + + + Support + + + + + | Name | Relationship | Address | Phone | + + + + + | Jojo Clark | ECON | [place] | | | | | [address] | | + + + + + Care Team Providers + +------+ + | Care Salesperson Shoes Name | Role | Phone | + [...] | Specialty | Urology | Diagnoses | [place], | Anastasiia, | | | Services | | Left | Mike Sarabia MD | Mike Sarabia MD | | | Required | | ureteral | [address] | [address] | | | | | calculus | AVE [place] | [place] | | | | | Procedures | [place] | [place] | | | | | [place] | [address] | [address] Phone: | | | | | CYSTO/URETER | Phone: | [phone] | | | | | O/PYELOSCOPY | [phone] | Fax: | | | | | , CALCULUS | Fax: | [phone] | | | | | [place] | [phone] | | | | | | CYSTOSCOPY,I [...] | | | | | ureter | LICENSED MASSAGE PRACTITIONER [address] | [address] | | | | | Unspecified | [address] | [place] | | | | | abdominal | [place], | [place], [place] | | | | | pain PRE-OP | [place] [address] | [address] Phone: | | | | | Procedures | Phone: | [phone] | | | | | OFFICE | [phone] | Fax: | | | | | VISIT | Fax: | [phone] | | | | | EXTENDED | [phone] | | +--------+--------+ + + + + [...] | calculus (Primary | | | | [place], [place] | [place], [place] | Dx); Hepatitis C | | | | [address] | [address] | virus infection, | | | | [phone] | | unspecified | | | | [...] July 29, 2016 at 2:30 PM at [facility]. [facility] no later than 1:00 PM. REMEMBER: NOTHING TO EAT OR DRINK AFTER MIDNIGHT July 28, 2016. NO ASPIRIN OR ASPIRIN PRODUCTS ONE WEEK PRIOR TO SURGERY. Tylenol and Advil are OK. You will need to get the following testing done prior to surgery: CBC, CMP, URIC ACID, UA, PT/INR, PTT, LIVER PANEL Call us at [phone] with any questions. [x] Pain management booklet [...] for 8 hours or increasing bladder pressure [id number] [employer]. [address] [place] [address]. All righ ts reserved. This information is [...] Kelsie presented to the emergency department at [facility] on 07/14/2016 with a 3 to four-day history of left back and flank pain associated with fevers to 102. CT imagin g at [facility] suggested a "distal left ureteral 3-4 mm stone with mild left hydronephro sis, mild pyelosinus and periureteral edema." She appeared septic at [facility] , so she was transferred to [facility] on 07/14/2016 where she under went urgent [...] up with PCP regarding positive review of michell delgado. PHYSICAL EXAM Vitals: BP 112/68 mmHg | [...] surgical procedure and anesthesia including DVT, PE, HI, CVA, and even . Kelsie indicates her [...] monitoring with her PCP. It is small enfarooq gh that I cannot visualize it on [...] have not thoroughly proofread this note, and ultrasound manager erro rs may occur. CC: TESS Mathews [...]
--- OUTSIDE RECORDS SUMMARY | ~2020-06-11 | XMS | Encounter Summary ---
Demographics + + + | Address | [address] | | | [place] [address] | + + + | Home Phone | | + + + | Preferred Language | Unknown | + + + | Marital Status | | + + + | Evangelical Affiliation | Unknown | + + + | Race | White | + + + | Ethnic Group | Not or | + + + Author + + + | Author | [facility] | | | and [place] | + + + | Organization | [facility] | | | and [place] | + + + | Address | Unknown | + + + | Phone | Unavailable | + + + Support + + + + + | Name | Relationship | Address | Phone | + + + + + | Jojo Clark | ECON | [place] | | | | | [address] | | + + + + + Care Team Providers + +------+ + | Care Veneer Supervisor Name | Role | Phone | + [...] + + | 07/28/ | Hospital | [facility] | Mike Laurent, | | | 2016 | Encounter | MED CTR XRAY [address] | MD [address] | | | | | [place] | [place] | | | | | [place] [address] | [address] | | | | | [phone] | | | +--------+ + + + [...]
--- OUTSIDE RECORDS SUMMARY | ~2020-06-11 | XMS | Encounter Summary ---
Demographics + + + | Address | [address] | | | [place] [address] | + + + | Home Phone | | + + + | Preferred Language | Unknown | + + + | Marital Status | | + + + | [employer] Affiliation | Unknown | + + + | Race | White | + + + | Ethnic Group | Not or | + + + Author + + + | Author | [facility] | | | and [place] | + + + | Organization | [facility] | | | and [place] | + + + | Address | Unknown | + + + | Phone | Unavailable | + + + Support + + + + + | Name | Relationship | Address | Phone | + + + + + | Jojo Clark | [place] | [place] | | | | | [id number] | | + + + + + Care Team Providers + +------+ + | Care Windows Server Specialist Name | Role | Phone | + [...] | | | | | | | DC | | | | | | | [...] + + | 07/14/ | Hospital | [facility] | Bud, | Acute abdominal pain | | 2016 - | Encounter | [facility] | Scott Sarabia MD [address] | in left flank | | | | [address] [place] | [address] [place] | (Primary Dx); | | 07/16/ | | [place] [address] | [place] [address] | Ureterolithiasis; | | 2015 | | [phone] | [phone] | Intractable left | | | | | | upper quadrant | | | | | Blake Moreno, | abdominal pain; | | | | | [address] | Acute | | | | | [place], [place] | pyelonephritis; | | | | | [address] | Sepsis, due to | | | | | | unspecified organism | | | | | Mike Laurent MD | (FORMERLY [facility]); Ureteral | | | | | [address] | calculus, left | | | | | [place], [place] | | | | | | [id number] | | | | | | | [...] might be different fro m the original. [facility] Urology Discharge Summary Patient Name: [...] time. Follow up: Call Dr Laurent's office ([phone]) to set up your follow-up appointment or [...] for 8 hours or increasing bladder pressure [phone] [employer]. [address] [place] [address], [place] [address]. All righ ts reserved. This information is [...] antibiotics Analgesics documented in this en counter H&P Notes Mike Laurent MD - 07/14/2016 7:28 PM PDTFormatting of this note might be different fro m the original. Urology CONSULTATION NOTE Pt. Name/Age/: Kelsie Altman 31 y.o. 1985 Date of Admission: 07/14/2016 Date of Consultation: 07/14/2016 Requesting/Referring Physician: Dr. Valente Graf, [facility] Reason for Consultation: Opinion and advice regarding "infected kidney stone." Patient Active Problem List Diagnosis Ureteral calculus, left Sepsis Acute cystitis without hematuria Acute pyelonephritis History of Present Illness: Information is gathered from patient and parent Kelsie reports that she had sudden onset of left back and flank pain approximately 3 days ago . About 2 days ago, she developed fever and sweats. Ultimately, her fever increased to 102 , and her pain became severe and intractable, so she sought care in the emergency departme nt at [facility]. Urinalysis testing was suggestive of infection, and so she was given Levaquin levofloxacin 750 mg in the emergency department. CT imaging suggested a "distal left ureteral 3-4 mm stone with mild left hydronephrosis, mi ld pyelosinus and periureteral edema." She was hypotensive and tachycardic at [facility], which improved with IV fluids. Becau se of concern for an obstructing stone with infection, [facility] requested transfer for emergent urology care. She states that her pain has been constant, and has been associated with nausea, and 2 epis odes of emesis. She states the pain starts in her left back and radiates to the left flank and left lower quadrant region. She states more recently, the pain has been so severe that it has been radiating into the left leg as well. She denies any numbness or paresthesias in her extremities. She denies any saddle paresthe cliff. She denies any urinary or fecal incontinence. She states that she has seen "pink" color to the urine. She has dysuria and increased urin andrea frequency and urgency. She can't tell me when her last bowel movement was. She denies any hematochezia or melena. She has not had any vaginal drainage or discharge or bleeding, although she tells me that h er , from whom she is estranged, has given her chlamydia at some point in the past. She denies any cough or chest pain or shorts breath or hemoptysis. She denies any headache or visual changes. She denies any weight loss. She denies any endocrine or thyroid abnormalities. She denies any bleeding diasthesis. She does admit to depression and anxiety. She states she smokes about one half pack per day, unless her "PTSD" is activated, at which time she will smoke 3 packs per day. She reports 2 prior episodes of nephrolithiasis. Her first was during a when " couldn't do anything about it." Her second stone was in approximately August 2015. e states that Dr. Smith was prepared to do a ureteroscopic stone extraction, but serum repo rts that she requested that she urinates one more time before the operation, and she passed the stone, and the operation was averted. Her mother is at the bedside, and helps to supplement history. ER records reviewed. >65 minute encounter with Kelsie shakeel, over 50% of this time spent counseling and coordinati on of care regarding her stone disease and treatment options available and UTI/pyelonephriti s and sepsis. Past Medical History: Past Medical History Diagnosis Date Kidney calculi Anxiety PTSD (post-traumatic stress disorder) Hepatitis C Anxiety and depression History of chlamydia Past Surgical History: Past Surgical History Procedure Laterality Date Hernia repair 2014 Cholecystectomy 2006 Tubal ligation Tubes "removed" Home Medications: (Not in a hospital admission) Current Medications: Current Facility-Administered Medications Medication Dose Route Frequency Provider Last Rate Last Dose lactated ringers (LR) infusion Intravenous Continuous Blake Moreno MD No current outpatient prescriptions on file. Allergies: Allergies Allergen Reactions Penicillins Anaphylaxis Latex Hives Family History: Family History Problem Relation Age of Onset Cancer Maternal Grandfather Social History: Social History Social History Marital Status: Spouse Name: N/A Number of Children: N/A Years of Education: N/A Occupational History Not on file. Social History Main Topics Smoking status: Current Every Day Smoker -- 2.00 packs/day Smokeless tobacco: Not on file Alcohol Use: No Drug Use: Yes Special: Marijuana Sexual Activity: Yes Other Topics Concern Not on file Social History Narrative No narrative on file Review of Systems: Aside from the patient's complaints discussed above, 10 point review of systems is negative . Exam: Most Recent Vital Signs: Temp: 37.4 C (99.3 F) BP: 106/66 mmHg Pulse: 108 Resp: 18 SpO2: 100 % on Min/Max Temp past 24 hours:Temp Av.4 C (99.3 F) Min: 37.4 C (99.3 F) Max: 3 7.4 C (99.3 F) Weight most recent: Weight: 77.565 kg (171 lb) BMI: Body mass index is 31.27 kg/(m^2 ). Physical Examination: General: Well nourished, overweight, alert, in moderate distress secondary to apparent kyleigh n. Uncooperative at times. HEENT: Head normocephalic, EOMI. Pupils equal and round. Oropharynx is clear without antonietta thema or exudates. Hair is dyed green. Multiple piercings. Neck: Supple, no carotid bruits, no lymphadenopathy or thyromegaly. Cardiovascular: Regular rate and rhythm without any murmurs, rubs or gallops. Respiratory: Clear to auscultation bilaterally. Breathing unlabored. Abdomen: Soft, nondistended, moderate left flank and left lower quadrant tenderness. Bebo l tones normal active. No hepatosplenomegaly. Bladder nondistended. Back: No right costovertebral angle tenderness. 2+ left CVA tenderness. Genitourinary: No vaginal drainage or discharge or bleeding. Lymph: No palpable cervical or inguinal lymphadenopathy. Extremities: Warm and dry, no clubbing, cyanosis or edema. Neurological: Awake, alert, oriented 3. Sensation grossly intact to light touch in extr emities. Skin: Intact without lacerations, excoriations. Psychiatric: Mood irritable, affect very anxious. Tearful and crying and moaning frequent ly. She lashes out and yells at me when I tell her that her clothing will need to be removed prior to surgery. Diagnostic Studies: CBC shows a white blood cell count 11.6, hemoglobin 15.0, hematocrit 45.6, platelets 252. Basic metabolic panel shows sodium 134, potassium 3.1, chloride 101, CO2 20, BUN 13, creati nine 1.02, glucose 115, calcium 9.4. Urinalysis shows rbc's >50, WBC >50, 1+ bacteria, 1+ epithelial cells. X-rays: I personally reviewed the images of the most recent related X-rays and showed them to heaven rain patient: She has 2 punctate stones in left kidney, none in the right. There are 2 phlebolith present in the right pelvis, and a tiny "distal left ureteral 3-4 mm stone with mild left hydronephrosis." Impression: 1. 3-4 mm distal left ureteral calculus. 2. Left nephrolithiasis. 3. Sepsis. She has had hypotension and tachycardia, which has improved with IV fluids. 4. Pyelonephritis and cystitis. 5. Left hydronephrosis, mild. 6. PTSD. 7. Anxiety with depression. 8. Latex allergy. Recommendations: I showed the x-ray images to Kelsie. I discussed the imaging findings and laboratory finding s were Kelsie and her mother. We discussed that with sepsis and an obstructing stone, that he r obstruction needs to be alleviated to avoid worsening of sepsis. I advised her that she should go through 2 operations, one tonight as soon as OR time becom es available to decompress her obstructed kidney via placement of a ureteral stent. The sec ond operation to come later to remove her ureteral stone at a future date, once her infectio n has resolved. The risks, benefits, and alternatives of cystoscopy, and left ureteral stent placement are discussed with Kelsie in detail. I used diagrams and illustrations to show her how I would pl humberto a stent, so I was confident that she had a good understanding of the procedure and the a ttendant risks involved. I emphasized to her that she will not have complete relief of pain with her stent, and could have significant irritability and discomfort related to her stent . Risks are to include, but are not limited to bleeding, pain, infection, failure of the proc edure, inability to place the stent, ureteral injury, ureteral perforation, potential need f or additional procedures, inherent irritability and discomfort associated with a ureteral st ent, inherent risks of any surgical procedure and anesthesia including DVT, PE, ND, CVA, and even . Kelsie indicates her understanding, and indicates a desire to proceed as outlined. No guaran tees are given or implied. She tells me that she has been NPO since "breakfast" this morning, except for water at abou t 12:30 pm today. I emphasized to Kelsie that her stent is temporary, and cannot remain indwelling longer than 6 months, or else she will permanently damage her kidney. Electronically signed by: Mike Laurent [facility]14/2016 [facility] documented in this en counter ED Notes Blake Moreno MD - 07/14/2016 6:22 PM PDTFormatting of this note might be different f rom the original. [facility] Kelsie Altman Emergency Department Encounter Note [address] [place] [address] PCP:No Physician on file [phone] CHIEF COMPLAINT: Chief Complaint Patient presents with Flank Pain ED Room: [facility] Kelsie Altman is a 31 y.o. female who presents to the Emergency Department with severe left f lank pain which started this evening. She is a transfer from the emergency department in [facility]. Imaging found an obstructive stone. The patient received antibiotically, pain medications, and intravenous fluids. The patient seemed to be doing a little bit better. The patient had something to drink last around 4 PM this evening and a full meal approximately 10 AM. The patient did have an elevated temperature at the referring facility and remained t achycardic despite intravenous fluids. Check transient episode of hypotension in route but o therwise seems to be doing a little bit better. Accepting physician is Dr. Laurent, the [facility]. PAST MEDICAL & SURGICAL HISTORY Past Medical History Diagnosis Date Kidney calculi Anxiety PTSD (post-traumatic stress disorder) Hepatitis C Anxiety and depression History of chlamydia Past Surgical History Procedure Laterality Date Hernia repair 2014 Cholecystectomy 2006 Tubal ligation Tubes "removed" Cystoscopy insertion/removal stent/stone Left 07/14/2016 Procedure: Cystoscopy w/ Left Ureteral Stent Placement; Surgeon: Mike Laurent MD; Lo cation: [facility] CURRENT MEDICATIONS Discharge Medication List as of 07/16/2016 12:22 ALLERGIES Allergies Allergen Reactions Penicillins Anaphylaxis Latex Hives FAMILY AND SOCIAL HISTORY Family History Problem Relation Age of Onset Cancer Maternal Grandfather Social History Social History Marital Status: Legally Spouse Name: N/A Number of Children: N/A Years of Education: N/A Social History Main Topics Smoking status: Current Every Day Smoker -- 2.00 packs/day Smokeless tobacco: None Alcohol Use: No Drug Use: Yes Special: Marijuana Sexual Activity: Yes Other Topics Concern None Social History Narrative REVIEW OF SYSTEMS Constitutional: Negative for: fever or chills Cardiovascular: Negative for: chest pain Respiratory: Negative for: cough or shortness of breath Gastrointestinal: Negative for: vomiting or abdominal pain Genitourinary: POSITIVE for: dysuria, flank pain, or hematuria Musculoskeletal: Negative for: myalgias or arthralgias Skin: Negative for: rash or lesion Neuro and psych: Negative for: fainting or dizziness All other systems were reviewed and are subjectively reported as negative. PHYSICAL EXAM VITAL SIGNS: (first vital signs):Temp: 37.4 C (99.3 F) Pulse: 107 Resp: 18 SpO2: 100 % BP: 112/68 mmHg General: Alert, moderate active distress and not requiring any emergent interventions she i s tearful Eyes: Normal inspection, pupils equal and round, non-icteric sclera ENT: Ears normal Nose normal without discharge or drainage Pharynx normal with no exudates or discharge Neck: Normal inspection with no lymphadenopathy Supple Full ROM No carotid bruit with midline trachea Cardiovascular: Normal rate and rhythm, no extra sounds No murmurs rubs or gallops Focal PMI Respiratory: No respiratory distress or wheezing Normal excursion No retractions Abdomen: Soft, non-tender, non-distended Normal active bowel sounds Back: Normal inspection Without tenderness or deformity Skin: Color normal Warm and dry Extremities: PETERSON with equal pulses in the upper and lower extremities bilaterally Neuro: No gross motor/sensory deficit GCS 15 No cerebellar deficits Alert and oriented to person, place, time and situation. LABS Results for orders placed or performed during the hospital encounter of 07/14/16 Basic Metabolic Panel Result Value Ref Range NA 137 136-149 mmol/L K 3.8 3.5-5.1 mmol/L CL 109 98-109 mmol/L CO2 22 (L) 24-31 mmol/L ANION GAP 6 3-16 mmol/L GLUCOSE 181 (H) 70-109 mg/dL BUN 12 7-18 mg/dL Creatinine, Serum/Plasma 0.69 0.60-1.30 mg/dL eGFR if not >60 >=60 mL/min/1.73m2 CALCIUM 8.6 8.3-10.5 mg/dL BUN/CREA 17.4 CBC with Differential Result Value Ref Range WBC 5.4 4.0-11.0 K/uL RBC 4.28 3.70-5.20 M/uL Hgb 12.8 11.5-16.0 g/dL Hct 37.2 34.0-47.0 % MCV 87.0 83.0-101.0 fL MCH 29.8 28.0-35.0 pg MCHC 34.3 32.0-36.0 g/dL RDW-CV 13.6 <15.0 % Platelet Count 213 140-440 K/uL MPV 7.4 fL % Neutrophils 88.4 (H) 45.0-82.0 % % Lymphocytes 7.9 (L) 20.0-45.0 % % Monocytes 3.1 (L) 4.0-12.0 % % Eosinophils 0.4 0.0-5.0 % % Basophils 0.2 0.0-1.0 % Absolute Neutrophils 4.70 1.80-8.50 K/uL Absolute Lymphocytes 0.40 (L) 0.60-3.20 K/uL Absolute Monocytes 0.20 0.00-1.00 K/uL Absolute Eosinophils 0.00 0.00-0.40 K/uL Absolute Basophils 0.00 0.00-0.10 K/uL STUDIES Recent Results (from the past 360 hour(s)) FL Pyelogram Retrograde Narrative FL PYELOGRAM RETROGRADE 07/14/2016 9:50 PM HISTORY: intra op. COMPARISON: None. FINDINGS: Fluoroscopic images from retrograde pyelogram were obtained. There is placement of a left ureteral stent. IMPRESSION - Retrograde pyelogram. Please see the operative report for further information. Dictated and Signed by: Ovidio Hameed MD Electronically signed: 07/15/2016 8:[address] Abdomen Pelvis wo Contrast Narrative External films for comparison only - no result from [place]. ED COURSE & MEDICAL DECISION MAKING Pertinent Labs & Imaging studies were reviewed along with EMS notes and skilled nursing record s if applicable. (See chart for details) Medications and Allergy list reviewed. Nurses note and old records were reviewed. 18:22 I have reviewed the referring documentation, intravenous anabiotic's Levaquin, medica tions for the pain. I reviewed the digital imaging studies with a formal interpretation. I h kamini contacted Dr. Luarent, the urologist, who will evaluate the patient with anticipation to perform surgical intervention to relieve the obstruction. Dr. Laurent at bedside and evaluated the patient and consenting for surgical intervention. Last Set of Vital Signs: Temp: 35.9 C (96.6 F) Pulse: 56 Resp: 16 SpO2: 97 % BP: 111/62 mmHg No data found. FINAL IMPRESSION 1. Acute abdominal pain in left flank 2. Ureterolithiasis 3. Intractable left upper quadrant abdominal pain 4. Acute pyelonephritis 5. Sepsis, due to unspecified organism (HCC) 6. Ureteral calculus, left Follow-up Information Follow up with Mike Laurent MD. Schedule an appointment as soon as possible for a visi t in 1 week. Specialty: Urology Why: For follow up evaluation and to arrange to remove stone and stent Contact information: [address] [facility], [facility] [place] [address] [facility] [address] Discharge Medication List as of 07/16/2016 12:22 START taking these medications Details ciprofloxacin (CIPRO) 250 mg tablet Take 1 tablet by mouth 2 times daily for 7 days.Disp-14 tablet, R-0, Print HYDROcodone-acetaminophen (NORCO) 5-325 mg per tablet Take 1 tablet by mouth every 6 hours as needed for Pain (Pain).Disp-15 tablet, R-0, Print Electronically signed by: Blake Moreno MD 07/18/2016 3:19 Blake Moreno MD 07/18/16 0319 ietrMarry patel ch, RN - 07/14/2016 6:13 PM PDTBed: ED01 Expected date: 07/14/16 Expected time: 1810 Means of arrival: Ambulance Comments: [facility] transfer documented in this encounter Miscellaneous Notes Plan of Care - Geovanna Higgins RN - 07/16/2016 12:22 PM PDTProblem: Patient Care Over view (Adult) Goal: Care Team Goals & Evaluation PROBLEM-RELATED GOALS: 1. Kelsie will meet 75% of predicted incentive spirometer goal of 2200 ml by 07/19/16. 2. Pt will be free of s/sx of infection by 07/18/16 3. Pt pain will be within a tolerable level of 4/10 by 07/18/16 STRATEGY TO ACHIEVE GOALS: Instruct patient in the use of Incentive Spirometry and/or deep breath and cough. Nursing a nd Respiratory to work together to have patient use every hour while awake. Respiratory to m onitor progress 4 times daily until 75% goal met then turn over to nursing. -Administer abx as ordered, monitor VS for any abnormal values -administer maciej toradol and pyridium as ordered, consider PRN options as well if these are not effective. Outcome: Adequate for Discharge Date Met: 07/16/16 Goal Evaluation: Pt has met adequate goals of pain management, and tolerating a general diet to be discharg ed home. lan of [facility] [place] - BriaHeather Santos RN - 07/16/2016 9:05 AM PDTProblem: Patient Care Overview (Adult) Goal: Care Team Goals & Evaluation PROBLEM-RELATED GOALS: 1. Kelsie will meet 75% of predicted incentive spirometer goal of 2200 ml by 07/19/16. 2. Pt will be free of s/sx of infection by 07/18/16 3. Pt pain will be within a tolerable level of 4/10 by 07/18/16 STRATEGY TO ACHIEVE GOALS: Instruct patient in the use of Incentive Spirometry and/or deep breath and cough. Nursing a nd Respiratory to work together to have patient use every hour while awake. Respiratory to m onitor progress 4 times daily until 75% goal met then turn over to nursing. -Administer abx as ordered, monitor VS for any abnormal values -administer maciej toradol and pyridium as ordered, consider PRN options as well if these are not effective. Outcome: Improving Goal Evaluation: Diagnosis: Left uretal calculi, stent placement Discharge Plan: home [place] probably today Drains/ Lines: iv Mobility: ambulatory Continuous Pulse Ox: no Diabetic: no Pain: well controlled Diet: regular Planned Procedures: none Telemetry: no Sitter: no Pt continues to do well and improve. Seemed to be sleeping well during the night. No long er tachycardic. VSS. Will continue to monitor. Plan is to go home today. lan of Vicki Hooks - 07/16/2016 9:02 AM PDTMet with Kelsie today to discuss discharge transport ation. Kelsie stated, "my mommy will pick me up this afternoon" Kelsie did not have any concerns or questions for this CM. lan of Chas Corona Chaplain - 07/16/2016 8:35 AM PDTProblem: Patient Care Overview (Adult) Goal: Personalization Needs & Preferences Spiritual Care Kelsie Altman is a 31 y.o. female who is admitted for Ureterolithiasis [N20.1] Acute abdominal pain in left flank [R10.9] Urinary tract infection, site unspecified [N39.0] Left ureteral stone [N20.1] Intractable left upper quadrant abdominal pain [R10.12]. Spiritual Evaluation: Not especially anglican, but not negative to executive chef's visit. Spiritual Intervention: Active listening/pastoral support provided. Spiritual Outcomes: Pt. Appreciated Auto Radiator Mechanic visit. Is relieved to be going home. Spiritual Goals / Follow-up: Will see the patient as requested. If there are any other spiritual care issues that arise, please contact executive chef. lan of Jennifer Dolan RRT - 07/15/2016 9:45 PM PDTProblem: Patient Care Overview (Adult) Goal: Care Team Goals & Evaluation PROBLEM-RELATED GOALS: 1. Kelsie will meet 75% of predicted incentive spirometer goal of 2200 ml by 07/19/16. 2. Pt will be free of s/sx of infection by 07/18/16 3. Pt pain will be within a tolerable level of 4/10 by 07/18/16 STRATEGY TO ACHIEVE GOALS: Instruct patient in the use of Incentive Spirometry and/or deep breath and cough. Nursing a nd Respiratory to work together to have patient use every hour while awake. Respiratory to m onitor progress 4 times daily until 75% goal met then turn over to nursing. -Administer abx as ordered, monitor VS for any abnormal values -administer maciej toradol and pyridium as ordered, consider PRN options as well if these are not effective. Goal Evaluation: Kelsie is on room air with SPO2 98%. Breath sounds appears clear. She achieved 1250 ml of 2200 ml goal on her incentive spirometer. lan of [place] - Jolene Akers, Alice Hinojosa RRT - 07/15/2016 6:20 PM PDTProblem: Patient Care Overview (Adult) Goal: Care Team Goals & Evaluation PROBLEM-RELATED GOALS: 1. Kelsie will meet 75% of predicted incentive spirometer goal of 2200 ml by 07/19/16. 2. Pt will be free of s/sx of infection by 07/18/16 3. Pt pain will be within a tolerable level of 4/10 by 07/18/16 STRATEGY TO ACHIEVE GOALS: Instruct patient in the use of Incentive Spirometry and/or deep breath and cough. Nursing a nd Respiratory to work together to have patient use every hour while awake. Respiratory to m onitor progress 4 times daily until 75% goal met then turn over to nursing. -Administer abx as ordered, monitor VS for any abnormal values -administer maciej toradol and pyridium as ordered, consider PRN options as well if these are not effective. Goal Evaluation: Miss Posada is on Room air, all day, SpO2 values are mid 90's, BS are clear of wheezes or r honchi. Low volumes (500) on her IS device, she says are due to pain. Refused to use the last time offered to her. lan of Gary Murphy RN - 07/15/2016 1:27 PM PDTProblem: Patient Care Overview (Adult) Goal: Care Team Goals & Evaluation PROBLEM-RELATED GOALS: 1. Kelsie will meet 75% of predicted incentive spirometer goal of 2200 ml by 07/19/16. 2. Pt will be free of s/sx of infection by 07/18/16 3. Pt pain will be within a tolerable level of 4/10 by 07/18/16 STRATEGY TO ACHIEVE GOALS: Instruct patient in the use of Incentive Spirometry and/or deep breath and cough. Nursing a nd Respiratory to work together to have patient use every hour while awake. Respiratory to m onitor progress 4 times daily until 75% goal met then turn over to nursing. -Administer abx as ordered, monitor VS for any abnormal values -administer maciej toradol and pyridium as ordered, consider PRN options as well if these are not effective. Outcome: Improving Goal Evaluation: Patient alert, medicated For pain prn. Ambulating in room. IV fluid infusing, patient on room air. Ambulating to bathroom as needed lan of Care - Vicki Lagos - 07/15/2016 10:45 AM PDTProblem: Discharge Planning Intervention: Explore appropriate resources with patient and family The patient stated that she has a history of eating well and is not in need of food assista nce. However, the patient stated that she is interested in a new place to live because she wants her three children back. CPS currently has her children ages 1 1/2, 6, and 8. This in [facility] provided her with the "Where to Go for Help" brochure and highlighted housing resources in [facility]. This manager of internal audit also inquired about a PCP since one was not listed on the patient's chart. The patient stated that she's in the process of establishing care with [facility]. Intervention: Encourage resident/family to verbalize any anxieties r/t discharge, allow opp ortunities for questions, and demonstration of care skills (trach care, suctioning, GT care, catheter care, etc.) The patient stated that she has no concerns outside of finding a new place to live so she c an get her children back. The patient stated that this is her third kidney stone surgery so she doesn't have any concerns about providing care for herself post discharge. Goal: Patient will be discharged in a safe manner This manager of internal audit met with the patient to discuss plans post discharge. The patient stated that she lives in an apartment with a supportive roommate who is helpful and willing to assist th e patient during recovery. The patient stated that her mother is also supportive and was the one who drove her to the hospital. The patient stated that she would ask her mother if she could pick-her up at discharge. The patient stated that she would contact her CPS case man ager if her mother is unable to take her home. Maddie Barney, [employer] manager of internal audit Electronically signed by: Vicki Gan 07/15/2016 15:44 lan of Care - Heather Ballesteros RN - 07/15/2016 8:29 AM PDTProblem: Patient Care Overview (Adult) Goal: Care Team Goals & Evaluation PROBLEM-RELATED GOALS: 1. Kelsie will meet 75% of predicted incentive spirometer goal of 2200 ml by 07/19/16. 2. Pt will be free of s/sx of infection by 07/18/16 3. Pt pain will be within a tolerable level of 4/10 by 07/18/16 STRATEGY TO ACHIEVE GOALS: Instruct patient in the use of Incentive Spirometry and/or deep breath and cough. Nursing a nd Respiratory to work together to have patient use every hour while awake. Respiratory to m onitor progress 4 times daily until 75% goal met then turn over to nursing. -Administer abx as ordered, monitor VS for any abnormal values -administer maciej toradol and pyridium as ordered, consider PRN options as well if these are not effective. Outcome: Improving Goal Evaluation: Discharge Plan: TBD Post-Op Day: POD1 Procedure: kidney stone manipulation--back up into the kidney Surgeon: Anastasiia Drains/ Lines: stent placed in ureter Braces/ Collar Grade: n/a Mobility: up with supervision to BR Continuous Pulse Ox: no Diabetic: no Pain: managed with Toradol MACIEJ and pyridium Pt with some pain, fairly well controlled. Alert and oriented, seemed to sleep well throug h the night. Pt is menstruating so it is difficult to tell whether there is any bleeding fr om the procedure. VSS. Pt to start IV Cipro in the mornng. Will continue to monitor. p Note - Mike Bangura MD - 07/14/2016 10:28 PM PDTOperative Note Pt. Name/Age/: Kelsie Altman 31 y.o. 1985 [facility]. Record Number: [id number] Date of Operation/Procedure: 07/14/2016 Preoperative Diagnosis: Left ureteral calculus Left hydronephrosis Sepsis Pyelonephritis Postoperative Diagnosis: Left ureteral calculus Left hydronephrosis Sepsis Pyelonephritis Surgeon: Mike Laurent MD R Developer(s): None Anesthesia Provider(s): Anesthesiologist: Arthur Gutierrez MD Anesthesia Type: General Procedure: 1. Cystoscopy 2. Left Ureteral stent placement Operative Indications: Kelsie Altman is a 31 y.o. year old female who presents with findings suggesting mild hydronephrosis and ureteral obstruction. Kelsie was counseled and consented to proceed. The risks, benefits, complications, treatment options, and expected outcomes were discussed with Kelsie. Kelsie gave informed consent to proceed to the operating room for endoscopic evalu ation and treatment. Discussed risks, including infection, bleeding, failure to access uret er, possible severe ureteral injury, need for prolonged stent, stent irritation, hematuria, failure to diagnose, inability to treat encountered pathology, inability to place a stent, i nherent risks of surgery, anesthetic complications. Kelsie understands and consents to proce ed. Operative Findings: Cystoscopy noted no bladder tumors or lesions, but appeared diffusely erythematous. Prominent cystocele. Radiographic Findings: No stone noted on fluoroscopy. Appropriate stent positioning. Operation: Under the benefit of general anesthesia, the patient was prepped and draped in the usual sterile fashion in a low lithotomy position. Arms and legs were carefully padded and positioned to prevent any injury. An appropriate time out was held prior to the procedu re. Preoperative antibiotics and SCD's were applied as per protocol. Preoperative images w ere displayed on the imaging monitor. A rigid cystoscope was then placed through the urethra into the bladder and the bladder was systematically surveyed and investigated, and the above findings were readily noted. A Sensor guidewire was placed under fluoroscopic guidance up into the renal pelvis. No res istance was encountered. No bloody or purulent fluid emanating from ureter even after passa ge of wire and stent. A 6-Czech X 26 cm double-J stent was placed over the guidewire with a proximal curl confir med by fluoroscopy while the distal curl was confirmed by cystoscopy. The bladder was then drained through the cystoscope, and the scope was removed. Fluoroscopy once again confirmed appropriate stent positioning. No suture tether was left attached to the patient's stent. The patient was then awakened from anesthesia and sent to recovery in stable condition. Estimated Blood Loss: None Transfused: No Drains: None Specimen (s): none Complications: None Patient Condition: Stable Disposition: Admit to [facility] for IV fluids and IV antibiotics and parenteral analgesics. Electronically Signed by: Mike Laurent, 07/14/2016 22:28 [facility] D Triage Notes - [facility] brandon, Rosalia Matamoros, RN - 07/14/2016 6:15 PM PDTPt went to [place] [facility] w/ c/o severe L flank pain, imaging found obstructing stone. Transferred here for surgery with Anastasiia. Received 2 L NS, levaquin, 0.5 mg dilaudid, and two doses zofran in [place] prior to arrival. Last dr ink today at 1600, last food today at 1000. documented in this encounter Plan of Treatment [...] for comparison only - no result from [place]. | [facility] | + + + [...] + + + + + + | White Blood | 5.4 | 4.0 - 11.0 K/uL | [facility] | | | Cells | | | [facility] | | | | | | MEDICAL | | | | | | CENTER - | | | | | | LABORATORY | | + + + + + + | Red Blood | 4.28 | 3.70 - 5.20 | [facility] | | | Cells | | M/uL | [facility] | | | | | | MEDICAL | | | | | | CENTER - | | | | | | LABORATORY | | + + + + + + | Hemoglobin | 12.8 | 11.5 - 16.0 | [facility] | | | | | g/dL | [facility] | | | | | | [facility] | | | | | | C[facility] - | | | | | | LABORATORY | | + + + + + + | Hematocrit | 37.2 | 34.0 - 47.0 % | [facility] | | | | | | [facility] | | | | | | [facility] | | | | | | CENTER - | | | | | | LABORATORY | | + + + + + + | MCV | 87.0 | 83.0 - 101.0 fL | [facility] | | | | | | [facility] | | | [...] + | [facility] | [address] | [place] | [phone] | | [facility] | | [address] | | | - LABORATORY | | [...] | | | | | | [facility] | | | | [...] + + + + + + | eGFR, | >60Comment: GLOMERULAR | >=60 | [facility] | | | non- | FILTRATION | mL/min/1.73m2 | [facility] | | | [place] | RATE,ESTIMATED | | MEDICAL | | | | mL/min/1.01s0Wlou than | | CENTER - | | [...] | | ine Ratio | | | [facility] | | [...] [address] | [place] | [phone] | | [facility] | | [address] | | | - LABORATORY | | [...] (PF) injection 25 mcg | Given | 10/25/20 | 50 mcg | | | | 25 mcg, Intravenous, EVERY 1 | | 16 9:51 | | | | | HOUR PRN, Pain, Starting Tue | | PM PDT | | | | | 07/14/16 at 2002 | | | | | | + +-------+ +--------+---+---+ +-------+ +--------+---+---+ | Given | 1025/20 | 50 mcg | | | | [...] | | | 50 mcg, Intravenous, ONCE, e | | 16 6:29 | | | [...] | | | | | ineffective use Daphne 10/325 if | | | | | [...] | New Bag | 07/14/20 | | 100 | | | at [...] AM PDT | | | | | Wed07/14/16 at 2313, Caution: | | | | [...] | | | | | Vomiting, Starting 07/14/16 | | | | | | | [...]
--- OUTSIDE RECORDS SUMMARY | ~2020-06-11 | XMS | Encounter Summary ---
Demographics + + + | Address | [address] | | | [place] [address] | + + + | Home Phone | | + + + | Preferred Language | Unknown | + + + | Marital Status | | + + + | Yazidi Affiliation | Unknown | + + + | Race | White | + + + | Ethnic Group | Not or | + + + Author + + + | Author | [facility] | | | and [place] | + + + | Organization | [facility] | | | and [place] | + + + | Address | Unknown | + + + | Phone | Unavailable | + + + Support + + + + + | Name | Relationship | Address | Phone | + + + + + | Jojo Clark | ECON | [place] | | | | | [address] | | + + + + + Care Team Providers + +------+ + | Care Wood Stock Blank Handler Name | Role | Phone | + +------+ + | No, Physician | PCP | Unavailable | + +------+ + Encounter Details +--------+ + + + + | Date | Type | Department | Care Team | Description | +--------+ + + + + | 07/14/ | Hospital | [facility] | Mike Laurent, | | | 2015 | Encounter | MED [facility] XRAY [address] | MD Josette ANDREWS | | | | | [place] | [place] | | | | | [place] [address] | [address] | | | | | [phone] | | | +--------+ + + + [...]
--- OUTSIDE RECORDS SUMMARY | ~2020-06-11 | XMS | Encounter Summary ---
Demographics + + + | Address | [address] | | | [place] [address] | + + + | Home Phone | | + + + | Preferred Language | Unknown | + + + | Marital Status | | + + + | Religion Affiliation | Unknown | + + + | Race | White | + + + | Ethnic Group | Not or | + + + Author + + + | Author | [facility] | | | and [place] | + + + | Organization | [facility] | | | and [place] | + + + | Address | Unknown | + + + | Phone | Unavailable | + + + Support + + + + + | Name | Relationship | Address | Phone | + + + + + | Jojo Clark | ECON | [place] | | | | | [address] | | + + + + + Care Team Providers + +------+ + | Care Health Specialist Name | Role | Phone | [...] | | | | | | | [place] | | | | | | | [...] | | | | | [address] | [address] [place] | | | | | [place], [place] | [place] [address] | | | | | [address] | [phone] | | | | | [phone] | | | +--------+ + + + [...] | Placement Time: 2140 (created via | Tayolr Gutierrez MD | Taylor Gutierrez MD | [...] 2158; vagina; healing | 07/14/162158 by | 07/16/16 121 by | | only - | within [...] encounter [place] Notes Anesthesia Postprocedure Evaluation - Michelle Gutierrez MD - 07/14/2016 10:19 PM PDTForm atting of this note might be different from the original. ANESTHESIA POSTANESTHESIA EVALUATION Kelsie Altman 31 y.o. female 1985 [id number] Procedure(s) Cystoscopy w/ Left Ureteral Stent Placement (Left Vagina ) Cooperates? Yes Mental Status Performs simple tasks. Respiratory Satisfactory - Airway patent (self maintained). Cardiovascular Satisfactory Blood pressure and heart rate acceptable Temperature Satisfactory Pain Satisfactory N/V Control Satisfactory Hydration Satisfactory No signs of dehydration Complications None apparent Filed Vitals: 07/14/16 2215 07/14/16221507/14/162216 BP: 100/65 Pulse: 110 110 108 Temp: Resp: 26 20 23 SpO2: 91% 91% 94% Electronically signed by Michelle Gutierrez MD 07/14/2016 22:[address] [facility] nesthesia Proced ure Notes - Michelle Gutierrez MD - 07/14/2016 10:02 PM PDTAssociated Order(s): ANE AIRWAY NOTEAnesthesia Airway Placement 07/14/2016 21:41 Preprocedure check: patient identified, oxygen, airway assessed, patient reassessment prior to induction, airway equipment checked and suction Rapid Sequence Induction: no Mask ventilation: easy Successful technique: Mac Laryngoscope blade size: 3 Airway grade: 2a (Partial view of glottis) Other equipment: stylette Attempts: 1 Airway type: endotracheal Size: 6.5 Cuffed: cuffed Route, reference point: right side of mouth Tube depth: 21 cm Tube secured with: adhesive tape Trauma: none Tube placement verification: carbon dioxide detection Performing provider: MICHELLE GUTIERREZ Electronically Signed by: Michelle Gutierrez MD ESig date/time: 22:02 nesthesia Prepro cedure Evaluation - Michelle Gutierrez MD - 07/14/2016 8:16 PM PDT ANESTHESIA PREANESTHESIA EVALUATION Kelsie Altman 31 y.o. female 1985 [id number] Procedure(s): Cystoscopy w/ Left Ureteral Stent Placement (Left ) Medical history, anesthesia, medications, allergy, NPO status verified histories reviewed. Labs reviewed. Review of Systems / Med History Anesthesia History (-) PONV, difficult intubation, malignant hyperthermia Cardiovascular (-) CAD, angina Pulmonary No acute pulmonary concerns. (+) smoking history(-) asthma, COPD(-) sleep apnea: Psychology (+) anxiety, substance abuse (MJ), post-traumatic stress disorder Renal (+) pyelonephritis(-) end-stage renal disease Gastrointestinal/Hepatic (+) hepatitis: type C Physical Exam Airway MP II, Mouth opening >2 FB. Neck: full ROM, Dental ; Grossly normal except where noted below. CV Rhythm regular. Rate Normal. (-) murmur. Pulm Clear to auscultation bilaterally. Neuro Grossly normal. Anesthesia Plan ASA 3E Type: General. Induction: Intravenous. Potential problems: None anticipated. Monitors: Standard ASA monitors. Consent statement:Anesthetic plan, alternatives, risks and benefits discussed with patient. Risks discussed included (but were not limited to): nausea, sore throat, dental injury, tim g reaction, perioperative CV events, heart problems, respiratory events, pain, . Consenting person understands and agrees to proceed. PARQ. . Electronically Signed by: Michelle Gutierrez MD ESig date/time: 07/14/2016 20:25 documented in thi s encounter Miscellaneous Notes Addendum Note - Michelle Gutierrez MD - 07/14/2016 10:53 PM PDTFormatting of this note mi ght be different from the original. Addendum created 07/14/16 4268 by Michelle Gutierrez MD Modules edited: Anesthesia Events ddendum Note - Michelle Gutierrez MD - 07/14/2016 10:27 PM PDT Addendum created 07/14/162226 by Michelle Gutierrez MD Modules edited: Clinical Notes Clinical Notes: File: [id number] documented in th is encounter Plan of Treatment Not on filedocumented [...] | | | | | PRN, Starting Tu07/14/16 at | | PM PDT | | [...] +-------+ +--------+---+---+ +-------+ +--------+---+---+ | Given | 10//20 | 50 mcg | | | | [...] | | | | Intravenous, PRN, Starting Wed | | 16 9:39 | | | [...] | ondansetron (ZOFRAN) injection | Given | 10/25/20 | 4 mg | | | | Intravenous, PRN, Nausea, | | 16 9:54 | | | | | Vomiting, Starting 07/14/16 | | PM PDT | [...] | | | | | 07/14/16 at 8, Anesthesia | | PM PDT | | | | | Intra-op | | | | | | + +-------+ +--------+---+---+ +---+---+ | | | +---+---+ + +-------+ +--------+---+---+ | succinylcholine (ANECTINE) | Given | 07/14/20 | 100 mg | | | | injection Intravenous, PRN, | | 16 9:39 | | | | | Starting Wed07/14/16 at 2139, | | PM PDT | | | | | Anesthesia Intra-op | | | | | | + +-------+ +--------+---+---+ +---+---+ | | | +---+---+ documented in this encounter"
--- OUTSIDE RECORDS SUMMARY | ~2020-06-11 | XMS | Encounter Summary ---
Demographics + + + | Address | [address] | | | [place] [address] | + + + | Home Phone | | + + + | Preferred Language | Unknown | + + + | Marital Status | | + + + | Congregation Affiliation | Unknown | + + + | Race | White | + + + | Ethnic Group | Not or | + + + Author + + + | Author | [facility] | | | and [place] | + + + | Organization | [facility] | | | and [place] | + + + | Address | Unknown | + + + | Phone | Unavailable | + + + Support + + + + + | Name | Relationship | Address | Phone | + + + + + | Jojo Clark | ECON | [place] | | | | | [address] | | + + + + + Care Team Providers + +------+ + | Care Loan Analyst Name | Role | Phone | + [...] | | | | | | | [place] | | | | | | | [...] + + | 07/14/ | [facility] | [facility] | Mike Laurent, | Cystoscopy w/ Left | | 2016 | | MED CTR [facility] | MD Josette ANDREWS | Ureteral Stent | | | | [address] | [place], [place] | Placement | | | | [place], [place] | [address] | | | | | [address] | | | | | | [phone] | | | +--------+---------+ + + + [...] + + + | Blood Pressure | 96/60 | 07/14/2016 7:30 PM | | | | | PDT | | + + + + + | Pulse | 103 | 07/14/2016 7:30 PM | | | | | PDT | | + + + + + | Temperature | 38.3 C (100.9 F) | 07/14/2016 7:30 PM | | | | | PDT | | + + + + + | Respiratory Rate | 16 | 07/14/2016 7:30 PM | | | | | PDT | | + + + + + | Oxygen Saturation | 98% | 07/14/2016 7:30 PM | | | | | PDT [...] might be different fro m the original. [facility] Urology Discharge Summary Patient Name: Kelsie [...] time. Follow up: Call Dr Laurent's office ([phone]) to set up your follow-up appointment or [...] for 8 hours or increasing bladder pressure [id number] [employer]. [address] [place] [address]. All righ ts reserved. This information is [...] 07/14/2016 Date of Consultation: 07/14/2016 Requesting/Referring Physician: [facility] Reason for Consultation: Opinion and advice regarding [...] care in the emergency departme nt at [facility]. Urinalysis testing was suggestive of infection, and so she was given Levaquin levofloxacin 750 mg in the emergency department. CT imaging suggested a "distal left ureteral 3-4 mm stone with mild left hydronephrosis, mi ld pyelosinus and periureteral edema." She was hypotensive and tachycardic at [facility], which improved with IV fluids. Becau se of concern for an obstructing stone with infection, [facility] requested transfer for emergent urology care. She [...] Her first was during a when " ey couldn't do anything about it." Her second [...] records reviewed. >65 minute encounter with Kelsie today, over 50% of this time spent counseling [...] recent related X-rays and showed them [facility] patient: She has 2 punctate stones in [...] surgical procedure and anesthesia including DVT, PE, AZ, CVA, and even . Kelsie indicates her [...] kidney. Electronically signed by: Mike Laurent 07/14/2016 [facility] documented in this en counter ED Notes Blake Moreno MD - 07/14/2016 6:22 PM PDTFormatting of this note might be different f rom the original. [facility] Kelsie Altman Emergency Department Encounter Note [address] [place] [address] PCP:No Physician on file [phone] CHIEF COMPLAINT: Chief Complaint Patient presents with Flank Pain ED Room: 307/307-01 [facility] Kelsie Altman is a 31 y.o. female who presents to the Emergency Department with severe left f lank pain which started this evening. She is a transfer from the emergency department in [facility]. Imaging found an obstructive stone. The patient [...] better. Accepting physician is Dr. Laurent, the [facility]. PAST MEDICAL & SURGICAL HISTORY Past Medical [...] for comparison only - no result from [facility]. ED COURSE & MEDICAL DECISION MAKING Pertinent Labs & Imaging studies were reviewed along with EMS notes and prison record s if applicable. (See chart for details) Medications and Allergy list reviewed. Nurses note and old records were reviewed. 18:22 I have reviewed the referring documentation, intravenous anabiotic's Levaquin, medica tions for the pain. I reviewed the digital imaging studies with a formal interpretation. I h ave contacted Dr. Laurent, the urologist, who will evaluate the patient [...] to remove stone and stent Contact information: [address] [place] [address] [address], [address] [place] [address] Discharge Medication List as of 07/16/2016 12:22 [...] 07/18/2016 3:19 Blake Moreno MD 07/18/16 0319 iMarry cuadra ch, RN - 07/14/2016 6:13 PM PDTBed: ED01 Expected date: 07/14/16 Expected time: 1810 Means of arrival: Ambulance Comments: [facility] transfer documented in this encounter Miscellaneous Notes [...] to be discharg ed home. lan of Edith - Heather Cowan RN - 07/16/2016 9:05 AM PDTProblem: Patient [...] uretal calculi, stent placement Discharge Plan: home [place] probably today Drains/ Lines: iv Mobility: ambulatory [...] [facility]. [facility] stated, "my mommy will pick me up this afternoon" Kelsie did not have any concerns or questions for this CM. lan of Edith - Chas Hernandez Chaplain - 07/16/2016 8:35 AM PDTProblem: Patient Care Overview (Adult) Goal: Personalization Needs & Preferences Spiritual Care Kelsie Altman is a 31 y.o. female who is admitted for Ureterolithiasis [N20.1] Acute abdominal pain in left flank [R10.9] Urinary tract infection, site unspecified [N39.0] Left ureteral stone [N20.1] Intractable left upper quadrant abdominal pain [R10.12]. Spiritual Evaluation: Not especially synagogue, but not negative to technology analyst's visit. Spiritual Intervention: Active listening/pastoral support provided. Spiritual Outcomes: Pt. Appreciated Coin Rolling Machine Operator visit. Is relieved to be going home. Spiritual Goals / Follow-up: Will see the patient as requested. If there are any other spiritual care issues that arise, please contact technology analyst. lan of Care - Jennifer Clark RRT - 07/15/2016 9:45 PM PDTProblem: Patient [...] her incentive spirometer. lan of Edith - Alice Hou RRT - 07/15/2016 6:20 PM PDTProblem: Patient [...] last time offered to her. lan of [facility] Gary Cifuentes RN - 07/15/2016 1:27 PM PDTProblem: Patient [...] because she wants her three children back. [facility] currently has her children ages 1 1/2, 6, and 8. This in [facility] provided her with the "Where to Go for Help" brochure and highlighted housing resources in [facility]. This network internship also inquired about a PCP since one was not listed on the patient's chart. The patient stated that she's in the process of establishing care with [facility]. Intervention: Encourage resident/family to verbalize any anxieties [...] be discharged in a safe manner This network internship met with the patient to discuss plans [...] patient stated that she would contact her [facility] case man ager if her mother is unable to take her home. [facility] network internship Electronically signed by: Vicki Gan 07/15/2016 15:44 [facility] Heather monae RN - 07/15/2016 8:29 AM PDTProblem: Patient [...] Pt. Name/Age/: Kelsie Altman 31 y.o. 1985 Med. Record Number: [id number] Date of Operation/Procedure: 07/14/2016 Preoperative Diagnosis: Left ureteral calculus Left hydronephrosis Sepsis Pyelonephritis Postoperative Diagnosis: Left ureteral calculus Left hydronephrosis Sepsis Pyelonephritis Surgeon: Mike Laurent MD Guitar Instructor(s): None Anesthesia Provider(s): Anesthesiologist: Arthur Gutierrez MD [...] passa ge of wire and stent. A 6-Samoan X 26 cm double-J stent was placed [...] Electronically Signed by: Mike Laurent, 07/14/2016 22:28 [facility] D Triage Notes - [facility] Rosalia taylor RN - 07/14/2016 6:15 PM PDTPt went to [place] ED w/ c/o severe L flank pain, imaging found obstructing stone. Transferred here for surgery with Anastasiia. Received 2 L NS, levaquin, 0.5 mg dilaudid, and two doses zofran in [place] prior to arrival. Last ink today at 1600, last food today [...] for comparison only - no result from [facility]. | [facility] | + + + [...] | | | Cells | | | [facility] | | | | | | MEDICAL | | | | | | CENTER - | | | | | | LABORATORY | | + + + + + + | Red Blood | 4.28 | 3.70 - 5.20 | [facility] | | | Cells | | M/uL | [facility] | | | | | [...] | | | | g/dL | [facility] | | | | [...] | Basophils | | K/uL | [facility] | | | | [...] | [facility] | [address] | [place] | [phone] | | [facility] | | [address] | | | - LABORATORY | | [...] (H) | 70 - 109 mg/dL | [facility] | | | | | | [facility] | | | | | | MEDICAL | | | | | | CENTER - | | | | | | LABORATORY | | + + + + + + | BUN | 12 | 7 - 18 mg/dL | [facility] | | | | | | [facility] | | | | | | MEDICAL | | | | | | CENTER - | | | | | | LABORATORY | | + + + + + + | Creatinine | 0.69 | 0.60 - 1.30 | [facility] | | | | | mg/dL | [facility] | | | | | | MEDICAL | | | | | | CENTER - | | | | | | LABORATORY | | + + + + + + | eGFR, | >60Comment: GLOMERULAR | >=60 | [facility] | | | non- | FILTRATION | mL/min/1.73m2 | [facility] | | | [place] | RATE,ESTIMATED | | MEDICAL | | | | mL/min/1.84x8Eciy than | | CENTER - | | [...] | | | | | mg/dL | [facility] | | | | | | MEDICAL | | | | | | CENTER - | | | | | | LABORATORY | | + + + + + + | BUN/Creatin | 17.4 | | [facility] | | | ine Ratio | | | [facility] | | | | | | [...] + + | [facility] | [address] | [place], [place] | [phone] | | [facility] | | [address] | | | - LABORATORY | | [...] for comparison only - no result from [facility]. | [facility] | + + + [...]
--- OUTSIDE RECORDS SUMMARY | ~2020-06-11 | XMS | Encounter Summary ---
Demographics + + + | Address | [address] | | | [place] [address] | + + + | Home Phone | | + + + | Preferred Language | Unknown | + + + | Marital Status | | + + + | Adventist Affiliation | Unknown | + + + | Race | White | + + + | Ethnic Group | Not or | + + + Author + + + | Author | [facility] | | | and [place] | + + + | Organization | [facility] | | | and [place] | + + + | Address | Unknown | + + + | Phone | Unavailable | + + + Support + + + + + | Name | Relationship | Address | Phone | + + + + + | Jojo Clark | ECON | [place] | | | | | [address] | | + + + + + Care Team Providers + +------+ + | Care Letterer Name | Role | Phone | + +------+ + | Carolyn Roca | PCP | | + +------+ + Reason for Visit +--------+--------+ + | Reason | Onset | Comments | | | Date | | +--------+--------+ + | Other | 07/27/ | To Speak with the nurse | | | 2015 | | +--------+--------+ + Encounter Details +--------+ + + + + | Date | Type | Department | Care Team | Description | +--------+ + + + + | 07/27/ | Telephone | [facility] | Mike Laurent, | Other (To Speak with | | 2015 | | [address] | MD [address] | the nurse) | | | | [place] | [place] | | | | | [address] | [address] | | | | | [phone] | | | +--------+ + + + [...] + + documented as of this encounter Miscellaneous Notes Telephone Encounter - Anna Mayorga RN - 07/27/2016 5:00 PM PSTCALLED LAMONT BACK. JUST LETTING ME KNOW SHE HAD LABWORK DONE FOR SURGERY TOMORROW. elephone Encounter - Leeanna Brady - 4:05 PM PSTLINARCHIEEY, from [facility] Regarding patient, gamal Astorga has ptr, ptinr, ptt to report to nurse. documented in this e ncounter Plan of Treatment Not on filedocumented as of this encounter Visit Diagnoses Not on filedocumented in this encounter"
--- OUTSIDE RECORDS SUMMARY | ~2020-06-11 | XMS | Encounter Summary ---
Demographics + + + | Address | [address] | | | [place] [address] | + + + | Home Phone | | + + + | Preferred Language | Unknown | + + + | Marital Status | | + + + | Episcopal Affiliation | Unknown | + + + | Race | White | + + + | Ethnic Group | Not or | + + + Author + + + | Author | [facility] | | | and [place] | + + + | Organization | [facility] | | | and [place] | + + + | Address | Unknown | + + + | Phone | Unavailable | + + + Support + + + + + | Name | Relationship | Address | Phone | + + + + + | Jojo Clark | ECON | [place] | | | | | [address] | | + + + + + Care Team Providers + +------+ + | Care Hostess Host Name | Role | Phone | + +------+ + | Carolyn Roca | PCP | | + +------+ + Reason for Visit + +--------+ + | Reason | Onset | Comments | | | Date | | + +--------+ + | Appointment | 09/08/ | | | | 2015 | | + +--------+ + Encounter Details +--------+ + + + + | Date | Type | Department | Care Team | Description | +--------+ + + + + | 09/08/ | Telephone | [facility] | Mike Sanders, | Appointment | | 2016 | | [address] | MD [address] | | | | | [place] | [place] | | | | | [address] | [address] | | | | | [phone] | | | +--------+ + + + [...] this encounter Miscellaneous Notes Telephone Encounter - Leeanna Brady - 09/09/2016 10:49 AM PSTfaxedElectronically sig essie by Leeanna Brady at 09/09/2016 10:49 AM PSTTelephone Encounter - Mike Sanders MD - 09/08/2016 4:01 PM PSTTo whom It may concern: There are no urological contraindications to Kelsie embarking on rehab treatment for substa nce abuse. Mike Sanders MD elep francisco Encounter - Anna Mayorga RN - 09/08/2016 2:07 PM PSTSPOKE WITH PATIENT. HARI MAYER, COULD YOU PLEASE SCHEDULE PATIENT FOR POST-OP ON 10/12/16 OR 10/13/16 AT 8:30 WITH [employer] [place] [facility] AND NOTIFY PATIENT OF APPOINTMENT. ORDERS PLACED IN EMR. DR SANDERS, SHE WOULD LIKE A N OTE STATING THAT SHE CAN START HER DRUG AND ALCOHOL REHAB TREATMENT. elephone Encounter - Leeanna Brady - 09/08/2016 1:18 PM PSTPatient is calling to get a signed request from Dr. Sanders stating patient is ok to start treatment. Patient would like letter faxed to [phone] Attn: Socorro ruiz. Patients best contact number [phone]. Patient also needs to schedule post op for rasmussen rgery she had on 07/28/[address] Sanders. documented in this encounter Plan of Treatment + +---------+--------+ [...]
--- OUTSIDE RECORDS SUMMARY | ~2020-06-11 | XMS | Clinical Summary ---
Demographics + + + | Address | [address] | | | [place] [address] | + + + | Home Phone | | + + + | Preferred Language | Unknown | + + + | Marital Status | | + + + | Adventism Affiliation | Unknown | + + + | Race | White | + + + | Ethnic Group | Not or | + + + Author + + + | Author | [facility] | | | and [place] | + + + | Organization | [facility] | | | and [place] | + + + | Address | Unknown | + + + | Phone | Unavailable | + + + Support + + + + + | Name | Relationship | Address | Phone | + + + + + | Jojo Clark | ECON | [place] | | | | | [address] | | + + + + + Care Team Providers + +------+ + | Care Employee Benefits Manager Name | Role | Phone | + [...] on file | | + + + Last Filed Vital Signs + [...] + + Plan of Treatment + + +-------+ + | Health Maintenance | Due Date | Last | Comments | | | | Done | | + + +-------+ + | Vaccine: | | | | | Dtap/Tdap/Td (1 - | 5 | | | | Tdap) | | | | + + +-------+ + | Cervical Cancer | | | | | Screening (Pap) | 6 | | | + + +-------+ + | Vaccine: Influenza | | | | | (#1) | 0 | | | + + +-------+ + Implants + +-------+--------+ +--------+--------+--------+ | Implanted [...] Left: | COOK | | 04/20/ | [id number] | | - [id number]: Qty: 1 | | Ureter | [employer] | | 2018 | / | | on 07/14/2016 by Anastasiia, | | | - MEKHI | | | /[id number] | | Mike Sarabia MD at [facility] | | | | | | 97 | | [facility] | | | | | | | [...] | [employer] | [employer] | [id number] | 07/14/ | [phone] | | Medica | | MEDICAID HMO [...] | | al/Fam | | 1985 | [phone] | [address] [place] | | | [place] | | | [address] (Home) | [address] | + +--------+ +--------+ + + | Kelsie Altman | Person | Self | [birth year] | [address] | | | al/Fam | | 1985 | [phone] | [address] [place] | | | [place] | | | [address] (Home) | [address] | + +--------+ +--------+ + + Advance Directives + + + + + | Type | Date Recorded | Patient | Explanation | | | | 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
--- OUTSIDE RECORDS SUMMARY | ~2020-06-11 | XMS | Encounter Summary ---
Demographics + + + | Address | [address] | | | [place] [address] | + + + | Home Phone [...] [place] | | | | | [address] | | + + + + + Care Team Providers + +------+ + | Care Hot Saw Operator Name | Role | Phone | + +------+ + | Carolyn Roca | PCP | | + +------+ + Reason for Visit + +--------+ + | Reason | Onset | Comments | | | Date | | + +--------+ + | Appointment | 07/17/ | | | | 2015 | | + +--------+ + Encounter Details +--------+ + + + + | Date | Type | Department | Care Team | Description | +--------+ + + + + | 07/17/ | Telephone | [facility] | Mike Laurent, | Appointment | | 2016 | | [address] | MD [address] | | | | | [place] | [place] | | | | | [address] | [address] | | | | | [phone] | | | +--------+ + + + [...] this encounter Miscellaneous Notes Telephone Encounter - Zaria Vásquez - 07/23/2016 1:02 PM PDTAppointment completed. elephone Encounter - Zaria Vásquez - 07/21/2016 9:06 AM PDTPatient called in and stated that she is unab le to come in due to transportation availability. She can only find transportation from 3-6 . After speaking with the nurse, that is the only availability for this week but we can look into next week. However, the doctor would like to see her this week. I called the patient back and let her know. She will see what she can do about finding tra nsportation. Appointment scheduled. elephone Encounter - Anna Mayorga RN - 07/20/2016 4:40 PM PDTPlease schedule 07/23/16 at 10:00. Thanks. elephone Encounter - Zaria Vásquez - 07/17/2016 8:44 AM PDTPatient called and w farooqld like to schedule a 1 week post op. Please advise. documented in this encounter Plan of Treatment Not on filedocumented as of this encounter Visit Diagnoses Not on filedocumented in this encounter"
--- OUTSIDE RECORDS SUMMARY | ~2020-06-11 | XMS | Encounter Summary ---
Demographics + + + | Address | [address] | | | [place] [address] | + + + | Home Phone [...] [place] | | | | | [address] | | + + + + + Care Team Providers + +------+ + | Care Tool Analyst Name | Role | Phone | [...] | | | | | | | MS | | | | | | | CYSTO/URETER | | | | | | | O/PYELOSCOPY | | | | | | | , CALCULUS | | | | | | | TX MS | | | | | | | [...] + + | 07/28/ | Hospital | [facility] | Mike Laurent, | Ureteral calculus, | | 2016 | Encounter | MED CTR OR IN[facility] OP | [address] | left (Primary Dx) | | | | [address] | [place] | | | | | [place] | [address] | | | | | [address] | | | | | | [phone] | | | +--------+ + + + [...] time. Follow up: Call Dr Laurent's office ([phone]) to set up your follow-up appointment or [...] + + documented as of this encounter H&P Notes Mike Laurent MD - 07/28/2016 3:[address] [facility] SURGICAL INTERIM HISTORY AND PHYSICAL UPDATE Pt. Name/Age/: Kelsie Altman 31 y.o. 1985 Date of admission: 07/28/2016 The most current H&P was reviewed. The patient was reexamined. Re-evaluation of the patie nt confirms the necessity for the scheduled procedure. No change has occurred in the patien t s condition since the H&P was completed less than 30 days ago. No change in exam of hea rt and lungs. I have again today verified that the patient has a clear understanding of the treatment options, the selected procedure, the potential benefits and risks, and that there are no additional questions at this time. Electronically signed by: Mike Laurent, 07/28/2016 15:47 [facility] IEMike ramos MD - 07/23/2016 9:44 AM PDT Kelsie is a 31 y.o. female patient of TESS Mathews being seen today for follow up for kidney stones. CC: 3-4 mm distal left ureteral calculus Kelsie presented to the emergency department at [facility] on 07/14/2016 with a 3 to four-day history of left back and flank pain associated with fevers to 102. CT imagin g at [facility] suggested a "distal left ureteral 3-4 mm stone with mild left hydronephro sis, mild pyelosinus and periureteral edema." She appeared septic at [facility] , so she was transferred to [facility] on 07/14/2016 where she under went urgent [...] surgical procedure and anesthesia including DVT, PE, VT, CVA, and even . Kelsie indicates her [...] have not thoroughly proofread this note, and board certified family physician erro rs may occur. CC: TESS Mathews documented in this en counter Miscellaneous Notes Op Note - Mike Laurent MD - 07/28/2016 4:56 PM PSTOperative Note Pt. Name/Age/: Kelsie Altman 31 y.o. 1985 Med. Record Number: [id number] Date of Operation/Procedure: 07/28/2016 Preoperative Diagnosis: 3-4 mm distal left ureteral calculus Postoperative Diagnosis: 3-4 mm distal left ureteral calculus, spontaneously passed Surgeon: Mike Laurent MD Supervisor Food Checkers And Cashiers(s): None Anesthesia Provider(s): Anesthesiologist: Scott Clark II, MD Anesthesia Type: General Procedure: Cystoscopy Left Ureteroscopy Left Ureteral stent removal Operative Indications: Kelsie Altman is a 31 y.o. year old female who presents with signs and symptoms consistent with a distal 3-4 mm left ureteral calculus. Kelsie was counseled and consented to proceed. [...] to diagnose, inability to treat encountered pathology, inherent risks of surgery, an esthetic complications. The patient is aware this may be the first stage of a multi-stage p rocedure. Kelsie understands and consents to proceed. Operative Findings: Cystoscopy noted no bladder tumors or lesions. Ureteroscopy noted no stones. Her stone appeared to have spontaneously passed, perhaps with removal of her ureter al stent. Radiographic Findings: No visible stones. Operation: Under the benefit of general anesthesia, the patient was prepped and draped in the usual sterile fashion in a low lithotomy position. Arms and legs were carefully padded and positioned to prevent any injury. An appropriate time out was held prior to the procedu re. Preoperative antibiotics and HAYDER stockings were applied as per protocol. Preoperative images were displayed on the imaging monitor. A cystoscope was then placed through the urethra into the bladder and the bladder was syste matically surveyed and investigated, and the above findings were readily noted. A grasping forcep was placed on the indwelling left ureteral stent, and this was withdrawn to the urethral meatus. A Sensor guidewire was placed into the ureteral stent, and advanced up into the renal pelvi s under fluoroscopic guidance. The ureteral stent was then removed. The guidewire was then secured to the drape as a safety wire. I then placed the semirigid ureteroscope up into the ureter beside the guidewire, and visu alized no stones. I advanced the ureteroscope all the way up to just beyond the UPJ, and no stones were encountered. I slowly withdrew the ureteroscope along the entire length of the ureter, and no stones wer e encountered. I then passed a second guidewire into the ureter, and then I passed the flexible ureterosco pe over the second guidewire and up into the renal pelvis under fluoroscopic guidance. I then inspected each and every calyx with the flexible ureteroscope 3 times, and no stones were encountered. Each papilla had a normal appearance. I then slowly withdrew the flexible ureteroscope, and again, no stone material was found in the ureter. The bladder was then drained through the cystoscope, and the scope was removed. The patient was then awakened from anesthesia and sent to recovery in stable condition. Estimated Blood Loss: None Transfused: No Drains: None Specimen (s): None Complications: None Patient Condition: Stable Disposition: Discharge home when stable. The patient to return in approximately 1-2 weeks with KUB prior. Electronically Signed by: Mike Laurent, 07/28/2016 16:57 [facility] documented in this en counter Plan of [...] | 1.010, 1.015, | | | | [place], | | 1.020, 1.025 | | | [...]
--- OUTSIDE RECORDS SUMMARY | ~2020-06-11 | XMS | Encounter Summary ---
Demographics + + + | Address | [address] | | | [place] [address] | + + + | Home Phone [...] + + + | Author | [facility] | | | and [place] | + + + | Organization | [facility] | | | and [place] | + + + | Address | Unknown | + + + | Phone | Unavailable | + + + Support + + + + + | Name | Relationship | Address | Phone | + + + + + | Jojo Clark | ECON | [place] | | | | | [address] | | + + + + + Care Team Providers + +------+ + | Care Colorman Name | Role | Phone | + [...] | | | | | | | PA | | | | | | | CYSTO/URETER | | | | | | | O/PYELOSCOPY | | | | | | | , CALCULUS | | | | | | | [place] PA | | | | | | | [...] + + | 07/28/ | Surgery | [facility] | Mike Laurent, | Cystoscopy, Left | | 2015 | | MED CTR OR INTRA OP | MD Josette ANDREWS | Ureteroscopy | | | | [address] | [place] | | | | | [place] | [address] | | | | | [address] | | | | | | [phone] | | | +--------+---------+ + + + [...] time. Follow up: Call Dr Laurent's office ([phone]) to set up your follow-up appointment or [...] Mike Laurent MD - 07/28/2016 3:47 PM [facility] SURGICAL INTERIM HISTORY AND PHYSICAL [...] Electronically signed by: Mike Laurent, 07/28/2016 15:47 [facility] - 07/23/2016 9:44 AM PDT Kelsie is a 31 y.o. female patient of TESS Mathews being seen today for follow up for kidney stones. CC: 3-4 mm distal left ureteral calculus Kelsie presented to the emergency department at [facility] on 07/14/2016 with a 3 to four-day history of left back and flank pain associated with fevers to 102. CT imagin g at [facility] suggested a "distal left ureteral 3-4 mm stone with mild left hydronephro sis, mild pyelosinus and periureteral edema." She appeared septic at [facility] , so she was transferred to [facility] on 07/14/2016 where she under went [...] up with PCP regarding positive review of nikkiee ms. PHYSICAL EXAM Vitals: BP 112/68 mmHg [...] have not thoroughly proofread this note, and ticketing agent erro rs may occur. CC: TESS Mathews documented in this en counter Miscellaneous Notes Op Note - Mike Laurent MD - 07/28/2016 4:56 PM PSTOperative Note Pt. Name/Age/: Kelsie Altman 31 y.o. 1985 Med. Record Number: [id number] Date of Operation/Procedure: 07/28/2016 Preoperative Diagnosis: 3-4 mm distal left ureteral calculus Postoperative Diagnosis: 3-4 mm distal left ureteral calculus, spontaneously passed Surgeon: Mike Laurent MD Manager Coding(s): None Anesthesia Provider(s): Anesthesiologist: Scott Clark II, [...] Signed by: Mike Laurent, 07/28/2016 16:57 [facility] documented in this en counter Plan of [...] | 1.010, 1.015, | | | | [place], | | 1.020, 1.025 | | | [...] 5:30 | | | | | ONCE, e 07/28/16 at 1730, For 1 | | PM PST | | | | | dose, Post-op/Phase II | | | | | | + +-------+ +--------+---+---+ +---+---+ | | | +---+---+ documented in this encounter
--- OUTSIDE RECORDS SUMMARY | 2020-06-11 15:50 | XMS ---
PreManage Notification: BOBBI THOMPSON Security Yard Assistant Events No recent Security Events currently on file CRITERIA MET - [facility] - Has Care Guidelines - History of Sepsis Dx CARE PROVIDERS APURVA CASTANEDA Counselor: Addiction (Substance Use Disorder) Current PHONE: [phone] Guidelines Source: [facility] Guidelines Date: 01/25/2020 Care Coordination: Member is currently enrolled in Mental Health Services through [employer]. If services are needed through [employer] please call: Page [phone] Bin/Tavo Bangura\[facility]; [phone] Crisis [phone] E.DShannon VISIT COUNT (12 MO.) [address] [place] [address] TOTAL 3 NOTE: Visits indicate total known visits. ED/UCC VISIT TRACKING (12 MO.) 06/11/2020 15:48 [facility] [place] TYPE: Emergency COMPLAINT: - THROAT PROBLEM 10/06/2019 07:01 [facility] [place] TYPE: Emergency COMPLAINT: - SORE THROAT- PAIN DIAGNOSES: - Major depressive disorder, single episode, unspecified - Acute pharyngitis, unspecified - Other alf (current) drug therapy - Anxiety disorder, unspecified - Allergy status to penicillin - Nicotine dependence, unspecified, uncomplicated - Allergy status to sulfonamides status 07/11/2019 11:[address] [facility] [place] TYPE: Emergency COMPLAINT: - LEFT ANKLE PAIN, INJ DIAGNOSES: - Allergy status to sulfonamides status - Sprain of unspecified ligament of left ankle, initial encount - Overexertion from prolonged static or awkward postures, initi - Other alf (current) drug therapy - Anxiety disorder, unspecified - Nicotine dependence, unspecified, uncomplicated - Pain in left ankle and joints of left foot - Allergy status to penicillin - Major depressive disorder, single episode, unspecified INPATIENT VISIT TRACKING (12 MO.) No inpatient visits to display in this time frame [email or web address]
[2020-06-11] MEDS ORDERED: OMEPRAZOLE20 MG PO (16:37)
[2020-06-11] MEDS ORDERED: CHLORPROMAZINE100 MG PO (16:37)
== END 2020-06-11 16:22 | disposition home or self-care (01) ==
LOC: ED 15:46
DX: J02.9 Acute pharyngitis, unspecified (principal); H92.03 Otalgia, bilateral

== ENCOUNTER 2021-05-01 07:45 | Emergency (ER) | payer OTHER ==
[~2021-05-01] VITALS: Ht 157.5 cm; Wt 85.7 kg
[~2021-05-01 07:45] MED LIST changes: +CHLORPROMAZINE100 MG PO; +OMEPRAZOLE20 MG PO
--- OUTSIDE RECORDS SUMMARY | 2021-05-01 07:54 | XMS ---
PreManage Notification: BOBBI THOMPSON Security Director Clinical Operations Events No recent Security Events currently on file CRITERIA MET - [facility] - Has Care Guidelines CARE PROVIDERS There are no care providers on record at this time. Guidelines Source: [employer] [facility] [place] Guidelines Date: 01/25/2020 Care Coordination: Member is currently enrolled in Mental Health Services through [employer] network. If services are needed through [employer] please call: Page [phone] [facility] [place]; [phone] Crisis [phone] E.D. VISIT COUNT (12 MO.) 2 [facility]. TOTAL 2 NOTE: Visits indicate total known visits. ED/UCC VISIT TRACKING (12 MO.) 05/01/2021 07:45 [facility] TYPE: Emergency COMPLAINT: - FEVER, CHILLS 06/11/2020 15:48 [facility] TYPE: Emergency COMPLAINT: - THROAT PROBLEM DIAGNOSES: - Otalgia, bilateral - Acute pharyngitis, unspecified INPATIENT VISIT TRACKING (12 MO.) No inpatient visits to display in this time frame [email or web address]
[2021-05-01] MEDS ORDERED: VENLAFAXINE HC150 M1 PO (08:04)
[2021-05-01] MEDS ORDERED: CHLORPROMAZINE100 MG PO (08:04)
[2021-05-01] MEDS ORDERED: MINIPRESS2 MG PO (08:05)
== END 2021-05-01 09:14 | disposition home or self-care (01) ==
LOC: ED 07:45
DX: O99.891 Other specified diseases and conditions complicating pregnancy (principal); R50.9 Fever, unspecified; R53.81 Other malaise; R52 Pain, unspecified; O99.331 Smoking (tobacco) complicating pregnancy, first trimester; F17.200 Nicotine dependence, unspecified, uncomplicated; Z88.0 Allergy status to penicillin; Z88.2 Allergy status to sulfonamides; Z79.899 Other long term (current) drug therapy; Z20.822 Contact with and (suspected) exposure to COVID-19
CPT/HCPCS: 99283; U0003

== ENCOUNTER 2022-02-23 18:25 | Emergency (ER) | payer OTHER ==
[~2022-02-23] VITALS: Ht 157.5 cm; Wt 78.3 kg
[~2022-02-23 18:25] MED LIST changes: +MINIPRESS2 MG PO; +VENLAFAXINE HC150 M1 PO
[2022-02-23] MEDS ORDERED: HYDROCODON-ACE1 EA10 PO (21:26)
== END 2022-02-23 22:17 | disposition home or self-care (01) ==
LOC: ED 18:25
DX: S69.91XA Unspecified injury of right wrist, hand and finger(s), initial encounter (principal); F17.200 Nicotine dependence, unspecified, uncomplicated; W01.0XXA Fall on same level from slipping, tripping and stumbling without subsequent striking against object, initial encounter; Z88.0 Allergy status to penicillin; Z88.2 Allergy status to sulfonamides; Z79.899 Other long term (current) drug therapy
CPT/HCPCS: 73130; A9270

== ENCOUNTER 2023-03-30 11:17 | Emergency (ER) | payer OTHER ==
[~2023-03-30] VITALS: Ht 157.5 cm; Wt 68.0 kg
[~2023-03-30 11:17] MED LIST changes: +HYDROCODON-ACE1 EA10 PO
[2023-03-30 13:24] VITALS: BP 116/73
== END 2023-03-30 13:25 | disposition other institution, planned readmission (95) ==
LOC: ED 11:17
DX: S61.411A Laceration without foreign body of right hand, initial encounter (principal); F17.200 Nicotine dependence, unspecified, uncomplicated; W01.0XXA Fall on same level from slipping, tripping and stumbling without subsequent striking against object, initial encounter; Z88.0 Allergy status to penicillin; Z88.2 Allergy status to sulfonamides; Z79.899 Other long term (current) drug therapy; Z53.21 Procedure and treatment not carried out due to patient leaving prior to being seen by health care provider
CPT/HCPCS: 73110; 73130; 90471; 90715; 99283 25

== ENCOUNTER 2023-05-10 18:39 | Emergency (ER) | payer OTHER ==
[~2023-05-10] VITALS: Ht 157.5 cm; Wt 68.0 kg
--- OUTSIDE RECORDS SUMMARY | ~2023-05-10 | XMS | Continuity of Care Document ---
Demographics + + + | Address | [address] [address] | | | [place] [address] | + + + | Preferred Language | Unknown | + + + | Marital Status | Never | + + + | Zoroastrian Affiliation | Unknown | + + + | Race | White | + + + | Ethnic Group | Not or | + + + Author + + + | Author | [facility] | + + + | Organization | [facility] | + + + | Address | [address] | | | [place] [address] | + + + | Phone | | + + + Care Team Providers + + + + | Care Personnel Worker Name | Role | Phone | + + + + Unavailable | Unavailable | + + + + Unavailable | Unavailable | + + + + Allergies and Intolerances + + + + + + | date | description | facility | reaction | severity | + + + + + + | (no date) | Anaphylaxis | [facility] | (no reaction) | (no severity) | | [facility] | | | + + + + + + | (no date) | Penicillin | [facility] | (no reaction) | (no severity) | | | [facility] | | | + + + + + + | (no date) | Penicillin | [facility] | (no reaction) | (no severity) | | | | [facility] | | | + + + + + + | (no date) | Penicillins | [facility] | (no reaction) | (no severity) | + + + + + + | (no date) | Sulfa | [facility] | (no reaction) | (no severity) | | | (Sulfonamide | | | | | | Antibiotics) | | | | + + + + + + | (no date) | Penicillin | [facility] | (no reaction) | (no severity) | | | | [facility] | | | + + + + + + | (no date) | Penicillin | [facility] | (no reaction) | (no severity) | | | | [facility] | | | + + + + + + Encounters No information. Functional Status No information. Immunizations + + + + | date | description | facility | + + + + | 2023-03-30 00:00 | Tdap | [facility] | + + + + Medications + + + + | date | description | facility | + + + + | 2023-03-30 00:00 | DIPHENHYDRAMINE HCL | [facility] | + + + + | 2023-03-30 00:00 | IBUPROFEN | [facility] | + + + + | 2023-03-30 00:00 | OMEPRAZOLE | [facility] | + + + + | 2023-03-30 00:00 | PRAZOSIN HCL | [facility] | + + + + | 2023-03-30 00:00 | PRAZOSIN HCL | [facility] | + + + + | 2018-12-03 00:00 | CEPHALEXIN | [facility] | + + + + | 2023-03-30 00:00 | CITALOPRAM HYDROBROMIDE | [facility] | + + + + | 2018-05-20 00:00 | CEPHALEXIN | [facility] | + + + + | 2023-03-30 00:00 | CEPHALEXIN | [facility] | + + + + | 2018-12-03 00:00 | ONDANSETRON | [facility] | + + + + | 2023-03-30 00:00 | PRAZOSIN HCL | [facility] | + + + + | 2023-03-30 00:00 | VENLAFAXINE HCL | [facility] | + + + + | 2023-03-30 00:00 | VENLAFAXINE HCL | [facility] | + + + + | 2023-03-30 00:00 | ACETAMINOPHEN | [facility] | + + + + | 2023-03-30 00:00 | VENLAFAXINE HCL | [facility] | + + + + | 2023-03-30 00:00 | RANITIDINE HCL | [facility] | + + + + | 2023-03-30 00:00 | KETOROLAC TROMETHAMINE | [facility] | + + + + | 2022-02-23 00:00 | HYDROCODONE | [facility] | | | BIT/ACETAMINOPHEN | | + + + + | 2018-05-20 00:00 | HYDROCODONE | [facility] | | | BIT/ACETAMINOPHEN | | + + + + | 2019-07-11 00:00 | HYDROCODONE | [facility] | | | BIT/ACETAMINOPHEN | | + + + + | 2023-03-30 00:00 | CHLORPROMAZINE HCL | [facility] | + + + + | 2023-03-30 00:00 | CHLORPROMAZINE HCL | [facility] | + + + + | 2023-03-30 00:00 | HYDROXYZINE HCL | [facility] | + + + + Problems + + + + | date | description | facility | + + + + | 2015-08-23 00:00 | Calculus of ureter | [facility] | + + + + | 2015-08-23 00:00 | Urinary tract infection | [facility] | + + + + | 2016-07-14 00:00 | Hydronephrosis with | [facility] | | | urinary obstruction due to | | | | ureteral calculus | | + + + + | 2018-05-20 00:00 | Abscess of right breast | [facility] | + + + + | 2019-07-11 00:00 | Sprain of left ankle | [facility] | + + + + | 2020-06-11 00:00 | Encounter for medical | [facility] | | | screening examination | | + + + + | 2021-05-01 00:00 | Severe acute respiratory | [facility] | | | syndrome coronavirus 2 | | | | (SARS-CoV-2) disease | | | | affecting in | | | | first trimester | | + + + + | 2023-03-30 00:00 | Laceration of palm | [facility] | + + + + | 2023-03-30 11:18 | NICOTINE DEPENDENCE, | [facility] | | | UNSPECIFIED, UNCOMPLICATED | | + + + + | 2023-03-30 11:18 | LACERATION WITHOUT FOREIGN | [facility] | | | BODY OF RIGHT HAND, INIT | | | | ENCNTR | | + + + + | 2023-03-30 11:18 | FALL SAME LEV FROM | [facility] | | | SLIP/TRIP W/O STRIKE | | | | AGAINST OB | | + + + + | 2023-03-30 11:18 | PROC/TRTMT NOT CRD OUT D/T | [facility] | | | PT LV BEF SEEN BY HLTH | | + + + + | 2023-03-30 11:18 | OTHER LOGGING SUPERVISOR (CURRENT) | [facility] | | | DRUG THERAPY | | + + + + | 2023-03-30 11:18 | ALLERGY STATUS TO | [facility] | | | PENICILLIN | | + + + + | 2023-03-30 11:18 | ALLERGY STATUS TO | [facility] | | | SULFONAMIDES STATUS | | + + + + Procedures No information. Results/Labs No information. Social History No information. Vital Signs + + + +---------+ | date | measurement | value | units | + + + +---------+ | 2023-03-30 00:00 | BMI | 27.4 | kg/m2 | + + + +---------+ | 2023-03-30 00:00 | BP_diastolic | 73 | mmHg | + + + +---------+ | 2023-03-30 00:00 | BP_systolic | 116 | mmHg | + + + +---------+ | 2023-03-30 00:00 | heart_rate | 99 | /min | + + + +---------+ | 2023-03-30 00:00 | height_metric | 157.48 | cm | + + + +---------+ | 2023-03-30 00:00 | height_standard | 62 | in | + + + +---------+ | 2023-03-30 00:00 | o2_saturation | 100 | % | + + + +---------+ | 2023-03-30 00:00 | respiration_rate | 16 | /min | + + + +---------+ | 2023-03-30 00:00 | temperature_metric | 36.83 | C | | | | | | + + + +---------+ | 2023-03-30 00:00 | | 98.3 | F | | | temperature_standar | | | | | d | | | + + + +---------+ | 2023-03-30 00:00 | weight_metric | 68.04 | kg | + + + +---------+ | 2023-03-30 00:00 | weight_standard | 150 | lb | + + + +---------+"
--- OUTSIDE RECORDS SUMMARY | ~2023-05-10 | XMS | Continuity of Care Document ---
Demographics + + + | Address | [address] [address] | | | [place] [address] | + + + | Preferred Language | Unknown | + + + | Marital Status | Never | + + + | Moravian Affiliation | Unknown | + + + | Race | White | + + + | Ethnic Group | Not or | + + + Author + + + | Author | [facility] | + + + | Organization | [facility] | + + + | Address | [address] | | | [place] [address] | + + + | Phone | | + + + Care Team Providers + + + + | Care Employment Specialist/Program Manager Name | Role | Phone | [...] + | 2023-03-30 00:00 | Tdap | [facility] | + + + + Medications + + + + | date | description | facility | + + + + | 2023-03-30 00:00 | DIPHENHYDRAMINE HCL | [facility] | + + + + | 2023-03-30 00:00 | IBUPROFEN | [facility] | + + + + | 2023-03-30 00:00 | OMEPRAZOLE | [facility] | + + + + | 2023-03-30 00:00 | PRAZOSIN HCL | [facility] | + + + + | 2023-03-30 00:00 | PRAZOSIN HCL | [facility] | + + + + | 2018-12-03 00:00 | CEPHALEXIN | [facility] | + + + + | 2023-03-30 00:00 | CITALOPRAM HYDROBROMIDE | [facility] | + + + + | 2018-05-20 00:00 | CEPHALEXIN | [facility] | + + + + | 2023-03-30 00:00 | CEPHALEXIN | [facility] | + + + + | 2018-12-03 00:00 | ONDANSETRON | [facility] | + + + + | 2023-03-30 00:00 | PRAZOSIN HCL | [facility] | + + + + | 2023-03-30 00:00 | VENLAFAXINE HCL | [facility] | + + + + | 2023-03-30 00:00 | VENLAFAXINE HCL | [facility] | + + + + | 2023-03-30 00:00 | ACETAMINOPHEN | [facility] | + + + + | 2023-03-30 00:00 | VENLAFAXINE HCL | [facility] | + + + + | 2023-03-30 00:00 | RANITIDINE HCL | [facility] | + + + + | 2023-03-30 00:00 | KETOROLAC TROMETHAMINE | [facility] | + + + + | 2022-02-23 00:00 | HYDROCODONE | [facility] | | | BIT/ACETAMINOPHEN | | + + + + | 2018-05-20 00:00 | HYDROCODONE | [facility] | | | BIT/ACETAMINOPHEN | | + + + + | 2019-07-11 00:00 | HYDROCODONE | [facility] | | | BIT/ACETAMINOPHEN | | + + + + | 2023-03-30 00:00 | CHLORPROMAZINE HCL | [facility] | + + + + | 2023-03-30 00:00 | CHLORPROMAZINE HCL | [facility] | + + + + | 2023-03-30 00:00 | HYDROXYZINE HCL | [facility] | + + + + Problems + + + + | date | description | facility | + + + + | 2015-08-23 00:00 | Calculus of ureter | [facility] | + + + + | 2015-08-23 00:00 | Urinary tract infection | [facility] | + + + + | 2016-07-14 00:00 | Hydronephrosis with | [facility] | | | urinary obstruction due to | | | | ureteral calculus | | + + + + | 2018-05-20 00:00 | Abscess of right breast | [facility] | + + + + | 2019-07-11 00:00 | Sprain of left ankle | [facility] | + + + + | 2020-06-11 00:00 | Encounter for medical | [facility] | | | screening examination | | + + + + | 2021-05-01 00:00 | Severe acute respiratory | [facility] | | | syndrome coronavirus 2 | | | | (SARS-CoV-2) disease | | | | affecting in | | | | first trimester | | + + + + | 2023-03-30 00:00 | Laceration of palm | [facility] | + + + + | [...] + + | 2023-03-30 11:18 | OTHER BRAND MARKETING SPECIALIST (CURRENT) | [facility] | | | DRUG [...]
[2023-05-10] MEDS ORDERED: PREDNISONE20 MG PO (20:40)
[2023-05-10] MEDS ORDERED: PEPCID20 MG PO (20:45)
[2023-05-10 20:53] VITALS: BP 114/68
== END 2023-05-10 20:54 | disposition home or self-care (01) ==
LOC: ED 18:39
DX: L50.9 Urticaria, unspecified (principal); F17.200 Nicotine dependence, unspecified, uncomplicated; Z88.0 Allergy status to penicillin; Z88.2 Allergy status to sulfonamides
CPT/HCPCS: J1100; Q0163

== ENCOUNTER 2023-08-23 11:34 | Inpatient (IN) | payer OTHER ==
[2023-08-23] VITALS (7 sets, daily range): BP systolic 89–116; BP diastolic 58–70
[~2023-08-23] VITALS: Ht 157.5 cm; Wt 66.8 kg
[~2023-08-23 11:34] MED LIST changes: +PEPCID20 MG PO; +PREDNISONE20 MG PO
[2023-08-23 12:05] LABS: BILIRUBIN, URINE NEGATIVE (negative); BLOOD/HGB, URINE LARGE (Negative); KETONE, URINE NEGATIVE (Negative); LEUK ESTERASE, URINE LARGE (negative); NITRITE, URINE NEGATIVE (negative)
[2023-08-23 12:16] LABS: AMPHETAMINES, UR POSITIVE (NEGATIVE); BARBITURATES, UR NEGATIVE (NEGATIVE); BENZODIAZEPINES, UR NEGATIVE (NEGATIVE); BUPRENORPHINE,UR NEGATIVE (NEGATIVE); COCAINE, UR NEGATIVE (NEGATIVE); MARIJUANA (THC), UR POSITIVE (NEGATIVE); MDMA, UR POSITIVE (NEGATIVE); METHADONE, UR POSITIVE (NEGATIVE); METHAMPHETAMINE, UR NEGATIVE (NEGATIVE); OPIATES, UR NEGATIVE (NEGATIVE); OXYCODONE, UR NEGATIVE (NEGATIVE); PHENCYCLIDINE, UR NEGATIVE (NEGATIVE); TRICYCLIC ANTIDEPRESSANT, UR NEGATIVE (NEGATIVE)
[2023-08-23 12:17] LABS: BACTERIA, URINE 1+ /hpf (negative); CASTS, URINE NONE SEEN \\lpf; COLLECTION TYPE, URINE CLEAN CATCH; CRYSTALS, URINE NONE SEEN (0-1+); EPITHELIAL CELLS, URINE SQUAMOUS 1+ /lpf (0-1+); WHITE BLOOD CELLS, URINE >50 /HPF (0-5)
[2023-08-23 12:18] LABS: REFLEX CULTURE, URINE Yes (No)
[2023-08-23 12:22] LABS: BASOPHILS 0.3 % (0-2); EOSINOPHILS 0.2 % (0-6); HEMATOCRIT 40.2 % (35.0-50.0); HEMOGLOBIN 13.4 g/dL (12.0-18.0); LYMPHOCYTES 7.4 % (24-44); MCH 29.7 (27-36); MCHC 33.3 g/dl (30-36); MCV 89.3 fl (81-99); MONOCYTES 6.5 % (0-12); NEUTROPHILS 85.6 % (39-80); PLATELET COUNT 295 K/uL (140-440); RDW 13.5 (10.5-15.0)
[2023-08-23 12:36] LABS: ALBUMIN 3.5 g/dL (3.4-5.0); ALBUMIN/GLOBULIN RATIO 0.83 (1.1-2.4); ANION GAP 13.9 (7-21); BUN/CREATININE RATIO 12.9 (6.0-28.6); CALCIUM 8.8 mg/dL (8.5-10.1); CREATININE, SERUM 0.93 mg/dL (0.55-1.02); POTASSIUM 3.9 mmol/L (3.5-5.1); PROTEIN, TOTAL 7.7 g/dL (6.4-8.2)
[2023-08-23 12:41] LABS: LACTIC ACID, BLOOD 0.7 mmol/L (0.4-2.0)
[2023-08-23 13:06] LABS: INFLUENZA B NAA NEGATIVE (NEGATIVE); RESPIRATORY SYNCYTIAL VIR NAA NEGATIVE (NEGATIVE)
--- NOTE | 2023-08-23 15:40 | NUR ---
38 YEAR OLD FEMALE PATIENT ADMITTED TO CCU FROM ED VIA STRETCHER. REPORT RECEIVED FROM DEYANIRA IN ER. UPON ADMIT PATIENT IS ALERT, ORIENTED AND COOPERATIVE. IS MOANING, HAVING PAIN IN LOWER BACK. AMBULATED TO BR TO VOID, THEN TO BED. ADMISSION PROCESS STARTED. IVF INFUSING AT 125 ML/HR. PATEINT DENIES NAUSEA.
--- NOTE | 2023-08-23 16:30 | NUR ---
ADMISSION PROCESS COMPLETE. SKIN HOT TO TOUCH.
--- NOTE | 2023-08-23 17:03 | NUR ---
PATIENT GIVEN TWO TYLENOL FOR 9/10 LEFT LOWER BACK PAIN. IV GENTAMYCIN INFUSING FOR ONE HOUR. LOVENOX SQ TO LEFT LOWER ABDOMEN.
--- NOTE | 2023-08-23 17:30 | NUR ---
VERY GROGGY AFTER BENADRYL GIVEN. ONLY ABLE TO TAKE A FEW BITES OF DINNER. WILL FOLLOW FEW COMMANDS THEN BACK TO SLEEP.
--- NOTE | 2023-08-23 19:30 | NUR ---
REPORT TO NEXT SHIFT. PATIENT CONTINUES TO SLEEP. CALL LIGHT WITHIN REACH. NO RESP DISTESS NOTED. IVF PATENT.
--- NOTE | 2023-08-23 21:02 | NUR ---
SBAR REPORT RECEIVED FROM ESA MURPHY. PATIENT BOBBI IS PLEASANT, COOPERATIVE, AND REPORTS PAIN IN "KIDNEYS". SHE WOULD LIKE THIS RN TO "TURN MY KIDNEYS OFF". THIS RN PROVIDED A WARM BLANKETS AND I WILL ADMINISTER PRN PAIN MEDICATIONS SO THAT SHE MAY HAVE A RESTFUL NIGHT. VSS AND WDL PER MONITOR. SAFETY CHECK PERFORMED. I ROUNDED WITH MD DOUGHERTY AND DISCUSSED PATIENT BOBBI'S PLAN OF CARE. WE WILL MONITOR OVERNIGHT AND MAINTAIN VSS AND PAIN WITH DEFINED LIMITS
--- NOTE | 2023-08-23 22:38 | NUR ---
PATIENT SHAVER DENIES ANY PAIN OR DISCOMFORT AT THIS TIME. SHE AMBULATED TO THE COMMODE WITH THIS RN AND WAS ABLE TO VOID WITH MINIMAL DISCOMFORT. JESIKA CARE CONDUCTED
[2023-08-24] VITALS (11 sets, daily range): BP systolic 94–135; BP diastolic 50–96
--- NOTE | 2023-08-24 00:49 | NUR ---
PATIENT BOBBI IS RESTING COMFORTABLY WITH EYES CLOSED. SHE WAS PROVIDED A MIDNIGHT SNACK AND DENIES ANY OTHER NEEDS AT THIS TIME. VSS ARE WDL, SAFETY CHECK PERFORMED. PERSONAL ITEMS ON BEDSIDE TABLE AND WARM BLANKET PROVIDED. NO SIGNS OF ACUTE WITHDRAWAL NOTED.
--- NOTE | 2023-08-24 02:27 | NUR ---
PATIENT BOBBI CONTINUES TO BE VERY PLEASANT AND COOPERATIVE. SHE IS NOTED TO BE RESTFUL AND DROWSY THIS HOUR. SHE DENIES ANY NEEDS OR DISCOMFORTS. VSS CONTINUE TO REMAIN WDL. NO SIGNS OF WITHDRAWAL NOTED.
--- NOTE | 2023-08-24 06:05 | NUR ---
PATIENT SHAVER CONTINUES TO BE PLEASANT AND ABLE TO COMMUNICATE NEEDS. MAINTENANCE FLUID OF LACTATED RINGERS GTT REMAINS AT 125CC P HR. LINEN CHANGE, SHAMPOO SHOWER CAP, AND WIPES FOR CLEANLINESS PROVIDED. NEURO- ALERT AND ORIENTED X 4. ENDORSED FLANK PAIN INTERMITTENTLY THROUGHOUT THE NIGHT. PRN TORADOL X2 GIVEN PERLL, SLIGHT ANXIETY NOTED, ABLE TO MOVE ALL EXTREMITIES 5/4. 1P ASSIST TO THE COMMODE. MODERATE DIAPHORESIS NOTED. RESP- ROOM AIR, BREATH SOUNDS CLEAR, ABLE TO COUGH AND DEEP BREATH CARDIAC- SR-ST, VSS AND WDL, BP MAINTAINED WITHIN DEFINIED PARAMETERS, TMAX 100.4, DIAPHORESIS, NO EDEMA NOTED GI/- VOIDS IN COMMODE, MODERATE APPETITE, ABLE TO FEED SELF, ABDOMEN TENDER, PASSING FLATUS, NO BOWEL MOVEMENT INT- SEE ASSESSMENT LDA- L WRIST AND RIGHT UPPER ARM IV REMAIN PATENT AND INTACT.
[2023-08-24 06:16] LABS: HEMATOCRIT 33.7 % (35.0-50.0); HEMOGLOBIN 11.3 g/dL (12.0-18.0); MCH 30.2 (27-36); MCHC 33.6 g/dl (30-36); MCV 89.9 fl (81-99); PLATELET COUNT 231 K/uL (140-440); RBC 3.75 M/ul (4.3-5.7); RDW 13.3 (10.5-15.0)
[2023-08-24 06:27] LABS: ANION GAP 10.5 (7-21); BUN/CREATININE RATIO 16.17 (6.0-28.6); CALCIUM 8.2 mg/dL (8.5-10.1); CREATININE, SERUM 0.68 mg/dL (0.55-1.02); MAGNESIUM 1.7 mg/dL (1.8-2.4); PHOSPHORUS, INORGANIC 2.5 mg/dL (2.5-4.9); POTASSIUM 3.5 mmol/L (3.5-5.1)
[2023-08-24 06:32] LABS: BANDS, MANUAL DIFF 5; LYMPHOCYTES, MANUAL DIFF 10; MONOCYTES, MANUAL DIFF 4; NEUTROPHILS, MANUAL DIFF 81
--- NOTE | 2023-08-24 07:10 | NUR ---
Spoke with Kelsie. She states she is currently living with her Uncle. She also stays at the [facility], but was asked to leave for not following the rules. She can return there on the Aug. She states she use [employer] resources in town and is aware of them all. She has been homeless in the past. She walks or rides her bike. She is aware she has free transportation for medical, she does not use it. She has aphone. Sheis disabled and uses food stamps. She also use [facility] and asks I call and let them know she is here as she uses IV meth. She asks I update her emergency contact to her uncle. Admitting emailed. Pt plans on dc to her uncles home on discharge. She does note use any DME.
--- NOTE | 2023-08-24 09:37 | NUR ---
MORNING MEDICATIONS STARTED PER EMAR. PT ASSISTED TO BSC, VOIDED 50 ML OF CONCENTRATED URINE. PT GIVEN TORADOL AND TYLENOL FOR PAIN 10/10 TO LEFT FLANK/BACK. PT DENIES OTHER NEEDS AT THIS TIME.
--- NOTE | 2023-08-24 09:44 | NUR ---
DR. DOUGHERTY IN ROOM TO SEE PATIENT AND DISCUSSING PLAN OF CARE. PATIENT TO TRANSFER TO THE MEDICAL FLOOR. IV BANANA BAG INFUSING. PT CAN TRANSFER WITHOUT TELEMETRY. PT STARTING TO FEVER, 100.3 AT THIS TIME. PT GIVEN COLD WASH CLOTH X2.
--- NOTE | 2023-08-24 10:03 | NUR ---
MED REC COMPLETE
--- NOTE | 2023-08-24 10:49 | NUR ---
PT TO [facility] REPORT RECEIVED, PT IS ALERT AND SBA UP TO THE TOILET. RETURNS TO BED WATER, CALL LIGHT, CELL PHONE AND NEEDED ITEMS IN REACH. NO S/O PAIN. PT ORIENTED TO ROOM DENIES FURTHER NEEDS
--- NOTE | 2023-08-24 11:00 | NUR ---
Called and spoke with Isa from [facility]. Tamar Iglesias is here and wanting to speak with Yomi and Umer. Per Isa, Yomi is not in today, but she will visit. FAce sheet printed and left for [facility].
--- NOTE | 2023-08-24 11:28 | NUR ---
MS ROUNDS. SHORT VISIT. PT INDICATED DESIRE TO REST. LEFT GUIDEPOST WITH PRAYER CARD AND CONTACT CARD. PROVIDED SILENT PRAYER.
--- NOTE | 2023-08-24 12:16 | NUR ---
PT AGREES SHE HAD A GOOD NAP. AWAKE NOW EATING LUNCH AGREES TO SHOWER AFTER MEAL
--- NOTE | 2023-08-24 12:59 | NUR ---
PT TO THE SHOWER, PERSONAL CARE ITEMS PROVIDED. PT REFUSES ASSIST ALL ITEMS PLACED IN REACH PT ENCOURAGED TO CALL WHEN SHE IS DONE FOR SBA OUT OF BATHROOM. REP FROM [facility] IS HERE TO SEE PT WAITING IN THE ROOM.
--- NOTE | 2023-08-24 13:34 | NUR ---
PATIENT BACK TO BED FROM CHAIR, SBA. VITALS AND I&O'S CHARTED. CALL LIGHT IN REACH. NO FURTHER NEEDS AT THIS TIME.
--- NOTE | 2023-08-24 14:12 | NUR ---
PT UP TO THE TOILET THEN RETURNS TO BED. WARM BLANKET PROVIDED. AGREES SHE IS COMFORTABLE
--- NOTE | 2023-08-24 14:26 | NUR ---
PT C/O CONSITPATION STATES SHE HASN'T HAD A BM IN SEVERAL DAYS. MIRALAX AND SENNA ORDERED AND ADMINISTERED. PT TO THE RESTROOM THEN RETURNS TO BED.
--- NOTE | 2023-08-24 17:28 | NUR ---
PT AGREES TYLENOL WAS EFFECTIVE FOR HER HEADACHE. NOW C/O INDIGESTION. MAMARIE ORDERED EVENING MEAL PROVIDED
--- NOTE | 2023-08-24 18:25 | NUR ---
PATIENT IN BED WATCHING TV AT THIS TIME. PATIENT SAID SHE IS STILL WORKING ON DINNER, LEFT ON BEDSIDE TABLE. VITALS AND I&O'S CHARTED. CALL LIGHT IN REACH. NO FURTHER NEEDS AT THIS TIME.
--- NOTE | 2023-08-24 19:38 | NUR ---
REPORT RECEIVED FROM DAY SHIFT RN. PATIENT RESTING IN BED. RESPIRATIONS EVEN AND UNLABORED. CALL LIGHT IN REACH.
--- NOTE | 2023-08-24 21:29 | NUR ---
PATIENT RESTING IN BED. IV FLUID INFUSING PER ORDER. PATIENT UP TO BATHROOM INDEPENDENTLY WITH LINE MANAGEMENT BY THIS RN TO VOID YELLOW URINE. VS AND I&Os OBTAINED AND RECORDED. SCHEDULED MEDICATIONS ADMINISTERED, SEE MAR. ASSESSMENT COMPPLETE. PATIENT STATES TENDERNESS ON THE RIGHT LOWER BACK. PAINFUL WITH MOVEMENT. WARM BLANETS PROVIDED. PATIENT EDUCATED ON HOW TO USE CALL LIGHT. PATIENT HAS NO FURTHER NEEDS. CALL LIGHT IN REACH. IV FLUSHED AND WNL.
--- NOTE | 2023-08-24 23:22 | NUR ---
PATIENT IN BED ON RIGHT SIDE. PATIENT REPORTS PAIN. PRN PAIN MEDICATION ADMINISTERED. PATIENT HAS NO FURTHER NEEDS. CALL LIGHT IN REACH.
--- NOTE | 2023-08-25 02:29 | NUR ---
PATIENT IN BED RESTING ON RIGHT SIDE WITH EYES CLOSED. RESPIRATIONS EVEN AND UNLABORED. CALL LIGHT IN REACH.
--- NOTE | 2023-08-25 04:21 | NUR ---
PATIENT UP TO BATHROOM INDEPENDENTLY TO VOID 1000 ML OF YELLOW URINE. PATIENT BACK TO BED. ASSESSMENT COMPLETE. PATIENT STATES 6/10 PAIN ON RIGHT SIDE OF LOWER BACK. PATIENT STATES PAIN IS TOLERABLE AND WANTS TO EAT HER SANDWICH. BOWEL TONES ACTIVE IN ALL 4 QUADRANTS. PATIENT STATES NO FURTHER NEEDS. CALL LIGHT IN REACH.
[2023-08-25 06:17] VITALS: BP 115/63
--- NOTE | 2023-08-25 06:31 | NUR ---
PATIENT RESTING IN BED. PATIENT RATES PAIN 8/10 IN RIGHT FLANK. PATIENT UP TO BATHROOM TO VOID YELLOW URINE. PATIENT BACK TO BED. VS AND I&Os OBTAINED AND RECORDED. PRN PAIN MEDICATION ADMINISTERED. FRESH WATER PROVIDED. PATIENT STATES NO FURTHER NEEDS. CALL LIGHT IN REACH.
[2023-08-25 06:49] LABS: BASOPHILS 0.6 % (0-2); EOSINOPHILS 0.6 % (0-6); HEMATOCRIT 35.6 % (35.0-50.0); HEMOGLOBIN 11.8 g/dL (12.0-18.0); LYMPHOCYTES 8.3 % (24-44); MCH 29.6 (27-36); MCHC 33.2 g/dl (30-36); MCV 89.1 fl (81-99); NEUTROPHILS 78.5 % (39-80); PLATELET COUNT 222 K/uL (140-440); RDW 13.1 (10.5-15.0)
[2023-08-25 07:08] LABS: ANION GAP 12.9 (7-21); BUN/CREATININE RATIO 10.76 (6.0-28.6); CREATININE, SERUM 0.65 mg/dL (0.55-1.02); POTASSIUM 3.9 mmol/L (3.5-5.1)
--- NOTE | 2023-08-25 07:10 | NUR ---
REPORT RECEIVED FROM LEGISLATORS RN ANIBAL. PATIENT IS RESTING IN BED WITH EYES CLOSED. RESPIRATIONS ARE EVEN AND UNALBORED. PATIENT CALL LIGHT AND PERSONAL BELONGINGS ARE WITHIN REACH.
[2023-08-25] MEDS ORDERED: CIPROFLOXACIN500 MG PO (09:32)
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
--- NOTE | 2023-08-25 11:07 | NUR ---
UR NOTES [facility] URINARY TRACT INFECTION (ISC) INPATIENT 08/24/23 [facility]IANCE GL DAY 2 08/25/23 MET GL DAY 2 AND 3
--- NOTE | 2023-08-25 11:20 | NUR ---
Pt plans on dc to uncles home. Tiffanie ROTH will schedule fu appt. with pcp. Pt denies other needs.
--- NOTE | 2023-08-25 12:00 | NUR ---
PATIENT TAKED TO THE FRONT OF THE HOSPITAL VIA WHEELCHAIR. PATIENT LEAVING WITH FRIEND WHO HAS BEEN AT THE BEDSIDE THIS MORNING. PATIENT GETTING A CARE RIDE. PATIENT DISCHARGED WITH PERSONAL ITEMS, DISCHARGE INSTRUCTIONS, AND EDUCATION ON UTI.
--- NOTE | 2023-08-25 14:00 | NUR ---
Notified by Tiffanie, pt does not have PCP at [facility] and they will not accept her. Unable to contact pt. Sent email to the [facility] asking if they could see this pt for a fu visit and appt to establish care.
== END 2023-08-25 12:00 | disposition home or self-care (01) | DRG 690 ==
LOC: ED 11:34 → CCU 15:22 → MS 08-24 10:05
PROVIDERS: Emergency Medicine; ADMIT Internal Medicine; ATTEND Internal Medicine
DX: N39.0 Urinary tract infection, site not specified (principal); F41.9 Anxiety disorder, unspecified; F32.A Depression, unspecified; B19.20 Unspecified viral hepatitis C without hepatic coma; F19.10 Other psychoactive substance abuse, uncomplicated; F17.210 Nicotine dependence, cigarettes, uncomplicated; F15.10 Other stimulant abuse, uncomplicated; Z90.49 Acquired absence of other specified parts of digestive tract; Z87.442 Personal history of urinary calculi; Z98.51 Tubal ligation status; Z11.52 Encounter for screening for COVID-19; Z98.890 Other specified postprocedural states; Z88.0 Allergy status to penicillin; Z88.2 Allergy status to sulfonamides
CPT/HCPCS: 36415; 71045; 74177; 80048; 80053; 80170; 80307; 81001; 83605; 83735; 84100; 84703; 85025; 85060; 87088; 87502; A9270; J0696; J1200; J1580; J1650; J1885; J2060; J3411; J7060; J7121; Q9967; U0002

== ENCOUNTER 2023-11-06 16:15 | Emergency (ER) | payer OTHER ==
[~2023-11-06] VITALS: Ht 157.5 cm; Wt 75.4 kg
[~2023-11-06 16:15] MED LIST changes: +CIPROFLOXACIN500 MG PO
--- OUTSIDE RECORDS SUMMARY | 2023-11-06 16:18 | XMS ---
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 TOTAL 5 NOTE: Visits indicate total known visits. ED/UCC VISIT TRACKING (12 MO.) 11/06/2023 16:16 [facility] TYPE: Emergency COMPLAINT: - BURN TO ABD 09/20/2023 08:55 [facility] TYPE: Emergency COMPLAINT: - VOMITING, KIDNEY PAIN DIAGNOSES: - Allergy status to penicillin - Allergy status to sulfonamides - Nicotine dependence, unspecified, uncomplicated - Noninfective gastroenteritis and colitis, unspecified - Other medicare insurance specialist (current) drug therapy - Vomiting, unspecified 08/23/2023 11:35 [facility] TYPE: Emergency COMPLAINT: - POSS UTI, FLU SYMPTOMS 05/10/2023 18:40 [facility] TYPE: Emergency COMPLAINT: - POSS INFECTION DIAGNOSES: - Allergy status to penicillin - Allergy status to sulfonamides - Nicotine dependence, unspecified, uncomplicated - Urticaria, unspecified 03/30/2023 11:18 [facility] TYPE: Emergency COMPLAINT: - R HAND INJURY DIAGNOSES: - Allergy status to penicillin - Allergy status to sulfonamides - Fall on same level from slipping, tripping and stumbling without subsequent striking against object, initial encounter - Laceration without foreign body of right hand, initial encounter - Nicotine dependence, unspecified, uncomplicated - Other medicare insurance specialist (current) drug therapy - Procedure and treatment not carried out due to patient leaving prior to being seen by health care provider INPATIENT VISIT TRACKING (12 MO.) 08/23/2023 15:[address] [facility] TYPE: Medical Surgical COMPLAINT: - UTI DIAGNOSES: - Acquired absence of other specified parts of digestive tract - Acquired absence of other specified parts of digestive tract - Allergy status to penicillin - Allergy status to penicillin - Allergy status to sulfonamides - Allergy status to sulfonamides - Anxiety disorder, unspecified - Anxiety disorder, unspecified - Depression, unspecified - Depression, unspecified - Encounter for screening for COVID-19 - Encounter for screening for COVID-19 - Nicotine dependence, cigarettes, uncomplicated - Nicotine dependence, cigarettes, uncomplicated - Other psychoactive substance abuse, uncomplicated - Other psychoactive substance abuse, uncomplicated - Other specified postprocedural states - Other specified postprocedural states - Other stimulant abuse, uncomplicated - Other stimulant abuse, uncomplicated - Personal history of urinary calculi - Personal history of urinary calculi - Tubal ligation status - Tubal ligation status - Unspecified viral hepatitis C without hepatic coma - Unspecified viral hepatitis C without hepatic coma - Urinary tract infection, site not specified [email or web address]
[2023-11-06 17:46] VITALS: BP 120/70
== END 2023-11-06 17:51 | disposition home or self-care (01) ==
LOC: ED 16:15
DX: T21.22XA Burn of second degree of abdominal wall, initial encounter (principal); T31.0 Burns involving less than 10% of body surface; X06.2XXA Exposure to ignition of other clothing and apparel, initial encounter; Z59.00 Homelessness unspecified; F17.200 Nicotine dependence, unspecified, uncomplicated; Z88.0 Allergy status to penicillin; Z88.2 Allergy status to sulfonamides; Z79.899 Other long term (current) drug therapy
CPT/HCPCS: 16020; 99283

== ENCOUNTER 2025-05-04 11:08 | Emergency (ER) | payer OTHER ==
[~2025-05-04] VITALS: Ht 157.5 cm; Wt 88.0 kg
[~2025-05-04 11:08] MED LIST changes: +CLARITIN10 M2 PO; +FLONASE ALLERG9.9 ML NAS; +NASAL DECONGEST30 MG PO
[2025-05-04] MEDS ORDERED: BUPROPION XL150 MG PO (11:15)
[2025-05-04] MEDS ORDERED: ARIPIPRAZOLE10 MG PO (11:15)
[2025-05-04 11:31] VITALS: BP 134/81
== END 2025-05-04 11:31 | disposition home or self-care (01) ==
LOC: ED 11:08
DX: F41.9 Anxiety disorder, unspecified (principal); Z02.89 Encounter for other administrative examinations; F17.200 Nicotine dependence, unspecified, uncomplicated; Z88.0 Allergy status to penicillin; Z88.2 Allergy status to sulfonamides; Z79.899 Other long term (current) drug therapy
CPT/HCPCS: 99283